=== PATIENT | male | born 1955 | race Caucasian/White ===

== ENCOUNTER 2017-09-01 10:57 | Emergency (ER) | payer OTHER ==
[~2017-09-01] VITALS: Ht 182.9 cm; Wt 149.7 kg
[~2017-09-01 10:57] MED LIST: ALBU90OI; ALBU90OI61 INH; AMOX500 PO; ATOR80 PO; Adult Low Dose81 MG PO; BECL80OI INH; CEPH500 PO; CETI5; CHLO50; CLARITIN10 MG PO; CODGUAEL PO; DOXY100; FISH1000 PO; FLUC150A PO; FLUV80CR; GLIM4; GLIM4 PO; GLYMET5 PO; Hair, Skin & N1 EACH PO; IPRATROPIUM INH; LEVFLO500 PO; LORA10 PO; METF500 PO; METO25ER PO; METPRE4DP PO; MONT10T PO; Monodox100 MG PO; NYST100TC TOP; OSEL75CA PO; PIOG15; PIOG45 PO; PRED20 PO; QVAR7.3 G1; QVAR7.3 G1 IH; SILSUL1TC TOP; SITA100T2 PO; STEROID NASAL SPRAY; VALS80; VALS80 PO; [UNRECOGNIZED DRUG - CODE] PO
[2017-09-01] MEDS ORDERED: Monodox100 MG PO (12:36)
[2018-06-19] MEDS ORDERED: SITA100T2 PO (16:10)
[2018-06-19] MEDS ORDERED: Glucophage1000 MG PO (16:11)
[2018-06-19] MEDS ORDERED: LORATADINE10 MG PO (16:12)
[2018-06-19] MEDS ORDERED: CEPH250A PO (16:12)
[2018-06-22] MEDS ORDERED: CEPH500 PO (16:36)
== END 2017-09-01 12:47 | disposition home or self-care (01) ==
LOC: ER 10:57
DX: E11.621 Type 2 diabetes mellitus with foot ulcer (principal); L97.529 Non-pressure chronic ulcer of other part of left foot with unspecified severity; I10 Essential (primary) hypertension; J45.909 Unspecified asthma, uncomplicated; Z60.9 Problem related to social environment, unspecified; Z88.1 Allergy status to other antibiotic agents; Z88.8 Allergy status to other drugs, medicaments and biological substances; Z79.899 Other long term (current) drug therapy; Z79.84 Long term (current) use of oral hypoglycemic drugs; Z79.82 Long term (current) use of aspirin; Z87.891 Personal history of nicotine dependence
CPT/HCPCS: 99282

== ENCOUNTER 2017-09-15 11:50 | Emergency (ER) | payer OTHER ==
[~2017-09-15] VITALS: Ht 182.9 cm; Wt 150.6 kg
[2017-09-15] MEDS ORDERED: Vibramycin100 MG PO (14:13)
[2018-06-19] MEDS ORDERED: SITA100T2 PO (16:10)
[2018-06-19] MEDS ORDERED: Glucophage1000 MG PO (16:11)
[2018-06-19] MEDS ORDERED: LORATADINE10 MG PO (16:12)
[2018-06-19] MEDS ORDERED: CEPH250A PO (16:12)
[2018-06-22] MEDS ORDERED: CEPH500 PO (16:36)
== END 2017-09-15 14:29 | disposition home or self-care (01) ==
LOC: ER 11:50
DX: Z76.0 Encounter for issue of repeat prescription (principal); E11.621 Type 2 diabetes mellitus with foot ulcer; I10 Essential (primary) hypertension; J45.909 Unspecified asthma, uncomplicated; Z88.0 Allergy status to penicillin; Z88.1 Allergy status to other antibiotic agents; Z91.048 Other nonmedicinal substance allergy status; Z79.899 Other long term (current) drug therapy; Z79.84 Long term (current) use of oral hypoglycemic drugs; Z79.82 Long term (current) use of aspirin; Z90.49 Acquired absence of other specified parts of digestive tract; Z87.891 Personal history of nicotine dependence
CPT/HCPCS: 93971; 99284

== ENCOUNTER 2017-10-31 13:35 | Inpatient (IN) | payer OTHER ==
[~2017-10-31] VITALS: Ht 185.4 cm; Wt 189.0 kg
[~2017-10-31 13:35] MED LIST changes: +Vibramycin100 MG PO
[2017-10-31 14:13] LABS: BASOPHILS ABSOLUTE AUTO 0.13 K/mm3 (0.00-0.23); BASOPHILS PERCENT AUTO 1 % (0-2); EOSINOPHILS PERCENT AUTO 1 % (0-6); Hematocrit 40.7 % (37.0-53.0); IMMATURE GRAN ABSOLUTE AUTO 0.09 K/mm3 (0.00-0.10); IMMATURE GRAN PERCENT AUTO 1 % (0-1); LYMPHOCYTES ABSOLUTE AUTO 2.71 K/mm3 (0.84-5.20); LYMPHOCYTES PERCENT AUTO 26 % (21-46); MONOCYTES ABSOLUTE AUTO 0.72 K/mm3 (0.16-1.47); MONOCYTES PERCENT AUTO 7 % (4-13); Mean Corpuscular HGB 29.3 pg (26.0-34.0); Mean Corpuscular HGB Conc 31.9 g/dL (31.5-36.5); Mean Corpuscular Volume 92 fL (80-100); Mean Platelet Volume 10.2 fL (9.1-12.4); NEUTROPHILS ABSOLUTE AUTO 6.76 K/mm3 (1.96-9.15); NEUTROPHILS PERCENT AUTO 64 % (41-73); Platelet Count 318 K/mm3 (150-400); RDW Coefficient Variation 14.7 % (11.7-14.2); RDW Standard Deviation 49.6 fL (35.1-46.3); Red Blood Cell Count 4.43 M/mm3 (4.30-5.90); White Blood Cell Count 10.51 K/mm3 (4.00-11.30)
[2017-10-31 14:20] LABS: Alanine Aminotransfer (ALT/SGP 15 U/L (12-78); Albumin, Blood 2.9 g/dL (3.4-5.0); Albumin/Globulin Ratio 0.7 (0.8-1.8); Alk Phos 95 U/L (50-136); Anion Gap 10 mmol/L (6-16); Aspartate Aminotrans (AST/SGOT 13 U/L (12-37); Bilirubin, Total 1.1 mg/dL (0.1-1.0); Blood Urea Nitrogen 16 mg/dL (8-24); Bun/Creatinine Ratio 17.4 (12.0-20.0); CO2, Blood 23 mmol/L (21-32); Calcium, Blood 8.9 mg/dL (8.5-10.1); Chloride, Blood 106 mmol/L (98-108); Creatinine, Blood 0.92 mg/dL (0.60-1.20); Globulin, Blood 4.2 g/dL (2.2-4.0); Glomerular Filtration Rate >60 (60-); Glucose, Blood 209 mg/dL (70-99); Potassium, Blood 4.1 mmol/L (3.5-5.5); Sodium, Blood 139 mmol/L (136-145); Total Protein, Blood 7.1 g/dL (6.4-8.2); Troponin I 0.044 ng/mL (0.000-0.040)
[2017-11-01 03:45] LABS: BASOPHILS ABSOLUTE AUTO 0.17 K/mm3 (0.00-0.23); BASOPHILS PERCENT AUTO 2 % (0-2); EOSINOPHILS ABSOLUTE AUTO 0.15 K/mm3 (0.00-0.68); EOSINOPHILS PERCENT AUTO 2 % (0-6); Hematocrit 38.9 % (37.0-53.0); Hemoglobin 12.3 g/dL (13.5-17.5); IMMATURE GRAN ABSOLUTE AUTO 0.09 K/mm3 (0.00-0.10); IMMATURE GRAN PERCENT AUTO 1 % (0-1); LYMPHOCYTES ABSOLUTE AUTO 2.47 K/mm3 (0.84-5.20); LYMPHOCYTES PERCENT AUTO 24 % (21-46); MONOCYTES ABSOLUTE AUTO 0.81 K/mm3 (0.16-1.47); MONOCYTES PERCENT AUTO 8 % (4-13); Mean Corpuscular HGB 29.4 pg (26.0-34.0); Mean Corpuscular HGB Conc 31.6 g/dL (31.5-36.5); Mean Corpuscular Volume 93 fL (80-100); NEUTROPHILS ABSOLUTE AUTO 6.63 K/mm3 (1.96-9.15); NEUTROPHILS PERCENT AUTO 64 % (41-73); Platelet Count 312 K/mm3 (150-400); RDW Coefficient Variation 14.8 % (11.7-14.2); RDW Standard Deviation 50.2 fL (35.1-46.3); Red Blood Cell Count 4.19 M/mm3 (4.30-5.90); White Blood Cell Count 10.32 K/mm3 (4.00-11.30)
[2017-11-01 04:06] LABS: Alanine Aminotransfer (ALT/SGP 15 U/L (12-78); Albumin, Blood 2.9 g/dL (3.4-5.0); Albumin/Globulin Ratio 0.7 (0.8-1.8); Alk Phos 89 U/L (50-136); Anion Gap 8 mmol/L (6-16); Aspartate Aminotrans (AST/SGOT 17 U/L (12-37); Bilirubin, Total 1.1 mg/dL (0.1-1.0); Blood Urea Nitrogen 16 mg/dL (8-24); Bun/Creatinine Ratio 16.4 (12.0-20.0); CO2, Blood 25 mmol/L (21-32); Calcium, Blood 8.6 mg/dL (8.5-10.1); Chloride, Blood 105 mmol/L (98-108); Creatinine, Blood 0.98 mg/dL (0.60-1.20); Globulin, Blood 4.1 g/dL (2.2-4.0); Glomerular Filtration Rate >60 (60-); Glucose, Blood 200 mg/dL (70-99); Magnesium, Blood 1.6 mg/dL (1.6-2.4); Sodium, Blood 138 mmol/L (136-145); Troponin I 0.038 ng/mL (0.000-0.040)
[2017-11-02 04:35] LABS: BASOPHILS ABSOLUTE AUTO 0.15 K/mm3 (0.00-0.23); BASOPHILS PERCENT AUTO 1 % (0-2); EOSINOPHILS ABSOLUTE AUTO 0.03 K/mm3 (0.00-0.68); EOSINOPHILS PERCENT AUTO 0 % (0-6); Hematocrit 40.8 % (37.0-53.0); IMMATURE GRAN ABSOLUTE AUTO 0.16 K/mm3 (0.00-0.10); IMMATURE GRAN PERCENT AUTO 1 % (0-1); LYMPHOCYTES ABSOLUTE AUTO 2.03 K/mm3 (0.84-5.20); LYMPHOCYTES PERCENT AUTO 17 % (21-46); MONOCYTES ABSOLUTE AUTO 1.02 K/mm3 (0.16-1.47); MONOCYTES PERCENT AUTO 8 % (4-13); Mean Corpuscular HGB 29.1 pg (26.0-34.0); Mean Corpuscular HGB Conc 31.9 g/dL (31.5-36.5); Mean Corpuscular Volume 91 fL (80-100); Mean Platelet Volume 10.6 fL (9.1-12.4); NEUTROPHILS ABSOLUTE AUTO 8.84 K/mm3 (1.96-9.15); NEUTROPHILS PERCENT AUTO 72 % (41-73); Platelet Count 329 K/mm3 (150-400); RDW Standard Deviation 49.9 fL (35.1-46.3); Red Blood Cell Count 4.47 M/mm3 (4.30-5.90); White Blood Cell Count 12.23 K/mm3 (4.00-11.30)
[2017-11-02 04:54] LABS: Anion Gap 10 mmol/L (6-16); Blood Urea Nitrogen 21 mg/dL (8-24); Bun/Creatinine Ratio 16.5 (12.0-20.0); CO2, Blood 21 mmol/L (21-32); Calcium, Blood 8.7 mg/dL (8.5-10.1); Chloride, Blood 103 mmol/L (98-108); Creatinine, Blood 1.27 mg/dL (0.60-1.20); Glomerular Filtration Rate >60 (60-); Glucose, Blood 231 mg/dL (70-99); Magnesium, Blood 1.7 mg/dL (1.6-2.4); Potassium, Blood 4.4 mmol/L (3.5-5.5); Sodium, Blood 134 mmol/L (136-145)
[2017-11-02] MEDS ORDERED: FURO40 PO (09:59)
[2017-11-02] MEDS ORDERED: METO50ER PO (10:00)
[2017-11-02] MEDS ORDERED: POTCHL20ER PO (10:01)
[2017-11-02] MEDS ORDERED: Prinivil10 MG PO (10:05)
[2018-06-19] MEDS ORDERED: SITA100T2 PO (16:10)
[2018-06-19] MEDS ORDERED: Glucophage1000 MG PO (16:11)
[2018-06-19] MEDS ORDERED: LORATADINE10 MG PO (16:12)
[2018-06-19] MEDS ORDERED: CEPH250A PO (16:12)
[2018-06-22] MEDS ORDERED: CEPH500 PO (16:36)
== END 2017-11-02 10:59 | disposition home or self-care (01) | DRG 292 ==
LOC: ER 13:35 → PCU 16:49
PROVIDERS: Internal Medicine; Physician Assistant
DX: I11.0 Hypertensive heart disease with heart failure (principal); Z68.43 Body mass index [BMI] 50.0-59.9, adult; E11.65 Type 2 diabetes mellitus with hyperglycemia; E66.01 Morbid (severe) obesity due to excess calories; I48.91 Unspecified atrial fibrillation; I50.21 Acute systolic (congestive) heart failure; E78.5 Hyperlipidemia, unspecified; K21.9 Gastro-esophageal reflux disease without esophagitis; J45.909 Unspecified asthma, uncomplicated; Z87.891 Personal history of nicotine dependence; Z88.0 Allergy status to penicillin; Z88.8 Allergy status to other drugs, medicaments and biological substances; Z79.84 Long term (current) use of oral hypoglycemic drugs; Z79.82 Long term (current) use of aspirin; Z79.899 Other long term (current) drug therapy
CPT/HCPCS: 36415; 71045; 80048; 80053; 82947; 83036; 83735; 83880; 84484; 85025; 93005; 93010; 94640; 94760; 96365; 96376; 99285; C8929; J1940; Q9957

== ENCOUNTER 2017-12-09 10:55 | Inpatient (IN) | payer OTHER ==
[~2017-12-09] VITALS: Ht 188 cm; Wt 172.4 kg
[~2017-12-09 10:55] MED LIST changes: +FURO40 PO; +IPRAOI INH; -IPRATROPIUM INH; +POTCHL20ER PO; +Prinivil10 MG PO
[2017-12-09] MEDS ORDERED: PIOG45 PO (12:02)
[2017-12-09 14:27] LABS: BASOPHILS PERCENT AUTO 1 % (0-2); EOSINOPHILS ABSOLUTE AUTO 0.14 K/mm3 (0.00-0.68); EOSINOPHILS PERCENT AUTO 2 % (0-6); Hematocrit 45.4 % (37.0-53.0); Hemoglobin 14.1 g/dL (13.5-17.5); IMMATURE GRAN ABSOLUTE AUTO 0.11 K/mm3 (0.00-0.10); IMMATURE GRAN PERCENT AUTO 1 % (0-1); LYMPHOCYTES ABSOLUTE AUTO 1.68 K/mm3 (0.84-5.20); LYMPHOCYTES PERCENT AUTO 19 % (21-46); MONOCYTES ABSOLUTE AUTO 0.69 K/mm3 (0.16-1.47); MONOCYTES PERCENT AUTO 8 % (4-13); Mean Corpuscular HGB 28.7 pg (26.0-34.0); Mean Corpuscular HGB Conc 31.1 g/dL (31.5-36.5); Mean Corpuscular Volume 93 fL (80-100); Mean Platelet Volume 9.6 fL (9.1-12.4); NEUTROPHILS ABSOLUTE AUTO 6.03 K/mm3 (1.96-9.15); NEUTROPHILS PERCENT AUTO 69 % (41-73); Platelet Count 329 K/mm3 (150-400); RDW Coefficient Variation 14.6 % (11.7-14.2); RDW Standard Deviation 49.2 fL (35.1-46.3); Red Blood Cell Count 4.91 M/mm3 (4.30-5.90); White Blood Cell Count 8.75 K/mm3 (4.00-11.30)
[2017-12-09 14:49] LABS: Alanine Aminotransfer (ALT/SGP 14 U/L (12-78); Albumin, Blood 3.1 g/dL (3.4-5.0); Albumin/Globulin Ratio 0.6 (0.8-1.8); Alk Phos 135 U/L (50-136); Anion Gap 8 mmol/L (6-16); Aspartate Aminotrans (AST/SGOT 11 U/L (12-37); Blood Urea Nitrogen 20 mg/dL (8-24); Bun/Creatinine Ratio 21.6 (12.0-20.0); CO2, Blood 27 mmol/L (21-32); Calcium, Blood 9.3 mg/dL (8.5-10.1); Chloride, Blood 105 mmol/L (98-108); Creatinine, Blood 0.93 mg/dL (0.60-1.20); Globulin, Blood 4.8 g/dL (2.2-4.0); Glomerular Filtration Rate >60 (60-); Glucose, Blood 158 mg/dL (70-99); Potassium, Blood 3.8 mmol/L (3.5-5.5); Sodium, Blood 140 mmol/L (136-145); Total Protein, Blood 7.9 g/dL (6.4-8.2); Troponin I <0.015 ng/mL (0.000-0.040)
[2017-12-10 08:00] LABS: BASOPHILS ABSOLUTE AUTO 0.13 K/mm3 (0.00-0.23); BASOPHILS PERCENT AUTO 2 % (0-2); EOSINOPHILS ABSOLUTE AUTO 0.18 K/mm3 (0.00-0.68); EOSINOPHILS PERCENT AUTO 2 % (0-6); Hematocrit 43.4 % (37.0-53.0); Hemoglobin 13.5 g/dL (13.5-17.5); IMMATURE GRAN ABSOLUTE AUTO 0.14 K/mm3 (0.00-0.10); IMMATURE GRAN PERCENT AUTO 2 % (0-1); LYMPHOCYTES ABSOLUTE AUTO 2.09 K/mm3 (0.84-5.20); LYMPHOCYTES PERCENT AUTO 24 % (21-46); MONOCYTES ABSOLUTE AUTO 0.74 K/mm3 (0.16-1.47); MONOCYTES PERCENT AUTO 8 % (4-13); Mean Corpuscular HGB 28.8 pg (26.0-34.0); Mean Corpuscular HGB Conc 31.1 g/dL (31.5-36.5); Mean Corpuscular Volume 93 fL (80-100); Mean Platelet Volume 9.5 fL (9.1-12.4); NEUTROPHILS ABSOLUTE AUTO 5.54 K/mm3 (1.96-9.15); NEUTROPHILS PERCENT AUTO 63 % (41-73); Platelet Count 345 K/mm3 (150-400); RDW Coefficient Variation 14.6 % (11.7-14.2); RDW Standard Deviation 49.7 fL (35.1-46.3); Red Blood Cell Count 4.68 M/mm3 (4.30-5.90); White Blood Cell Count 8.82 K/mm3 (4.00-11.30)
[2017-12-10 08:23] LABS: Alanine Aminotransfer (ALT/SGP 12 U/L (12-78); Albumin/Globulin Ratio 0.7 (0.8-1.8); Alk Phos 112 U/L (50-136); Anion Gap 9 mmol/L (6-16); Aspartate Aminotrans (AST/SGOT 9 U/L (12-37); Blood Urea Nitrogen 18 mg/dL (8-24); Bun/Creatinine Ratio 20.3 (12.0-20.0); CO2, Blood 26 mmol/L (21-32); Chloride, Blood 106 mmol/L (98-108); Creatinine, Blood 0.89 mg/dL (0.60-1.20); Globulin, Blood 4.6 g/dL (2.2-4.0); Glomerular Filtration Rate >60 (60-); Glucose, Blood 175 mg/dL (70-99); Potassium, Blood 4.1 mmol/L (3.5-5.5); Sodium, Blood 141 mmol/L (136-145); Total Protein, Blood 7.6 g/dL (6.4-8.2)
[2017-12-11 06:08] LABS: BASOPHILS ABSOLUTE AUTO 0.13 K/mm3 (0.00-0.23); BASOPHILS PERCENT AUTO 2 % (0-2); EOSINOPHILS ABSOLUTE AUTO 0.23 K/mm3 (0.00-0.68); EOSINOPHILS PERCENT AUTO 3 % (0-6); Hematocrit 43.9 % (37.0-53.0); Hemoglobin 13.9 g/dL (13.5-17.5); IMMATURE GRAN ABSOLUTE AUTO 0.09 K/mm3 (0.00-0.10); IMMATURE GRAN PERCENT AUTO 1 % (0-1); LYMPHOCYTES ABSOLUTE AUTO 1.99 K/mm3 (0.84-5.20); LYMPHOCYTES PERCENT AUTO 23 % (21-46); MONOCYTES ABSOLUTE AUTO 0.74 K/mm3 (0.16-1.47); MONOCYTES PERCENT AUTO 9 % (4-13); Mean Corpuscular HGB 28.9 pg (26.0-34.0); Mean Corpuscular HGB Conc 31.7 g/dL (31.5-36.5); Mean Corpuscular Volume 91 fL (80-100); NEUTROPHILS ABSOLUTE AUTO 5.54 K/mm3 (1.96-9.15); NEUTROPHILS PERCENT AUTO 64 % (41-73); Platelet Count 350 K/mm3 (150-400); RDW Coefficient Variation 14.6 % (11.7-14.2); RDW Standard Deviation 49.1 fL (35.1-46.3); Red Blood Cell Count 4.81 M/mm3 (4.30-5.90); White Blood Cell Count 8.72 K/mm3 (4.00-11.30)
[2017-12-11 06:41] LABS: Anion Gap 9 mmol/L (6-16); Blood Urea Nitrogen 17 mg/dL (8-24); Bun/Creatinine Ratio 17.3 (12.0-20.0); CO2, Blood 25 mmol/L (21-32); Chloride, Blood 105 mmol/L (98-108); Creatinine, Blood 0.98 mg/dL (0.60-1.20); Glomerular Filtration Rate >60 (60-); Glucose, Blood 151 mg/dL (70-99); Potassium, Blood 4.2 mmol/L (3.5-5.5); Sodium, Blood 139 mmol/L (136-145)
[2017-12-12 05:22] LABS: BASOPHILS ABSOLUTE AUTO 0.12 K/mm3 (0.00-0.23); BASOPHILS PERCENT AUTO 2 % (0-2); EOSINOPHILS ABSOLUTE AUTO 0.18 K/mm3 (0.00-0.68); EOSINOPHILS PERCENT AUTO 2 % (0-6); Hematocrit 43.4 % (37.0-53.0); Hemoglobin 14.1 g/dL (13.5-17.5); IMMATURE GRAN ABSOLUTE AUTO 0.09 K/mm3 (0.00-0.10); IMMATURE GRAN PERCENT AUTO 1 % (0-1); LYMPHOCYTES ABSOLUTE AUTO 1.89 K/mm3 (0.84-5.20); LYMPHOCYTES PERCENT AUTO 24 % (21-46); MONOCYTES ABSOLUTE AUTO 0.73 K/mm3 (0.16-1.47); MONOCYTES PERCENT AUTO 9 % (4-13); Mean Corpuscular HGB 29.5 pg (26.0-34.0); Mean Corpuscular HGB Conc 32.5 g/dL (31.5-36.5); Mean Corpuscular Volume 91 fL (80-100); Mean Platelet Volume 9.4 fL (9.1-12.4); NEUTROPHILS ABSOLUTE AUTO 4.92 K/mm3 (1.96-9.15); NEUTROPHILS PERCENT AUTO 62 % (41-73); Platelet Count 333 K/mm3 (150-400); RDW Coefficient Variation 14.4 % (11.7-14.2); RDW Standard Deviation 48.2 fL (35.1-46.3); Red Blood Cell Count 4.78 M/mm3 (4.30-5.90); White Blood Cell Count 7.93 K/mm3 (4.00-11.30)
[2017-12-12 05:57] LABS: Anion Gap 10 mmol/L (6-16); Blood Urea Nitrogen 21 mg/dL (8-24); Bun/Creatinine Ratio 21.5 (12.0-20.0); CO2, Blood 24 mmol/L (21-32); Calcium, Blood 9.3 mg/dL (8.5-10.1); Chloride, Blood 104 mmol/L (98-108); Creatinine, Blood 0.98 mg/dL (0.60-1.20); Glomerular Filtration Rate >60 (60-); Glucose, Blood 168 mg/dL (70-99); Potassium, Blood 4.4 mmol/L (3.5-5.5); Sodium, Blood 138 mmol/L (136-145)
== END 2017-12-14 07:56 | disposition home or self-care (01) | DRG 292 ==
LOC: ER 10:55 → MEDS 15:43
PROVIDERS: Internal Medicine; Physician Assistant Medical
DX: I11.0 Hypertensive heart disease with heart failure (principal); L03.116 Cellulitis of left lower limb; L97.929 Non-pressure chronic ulcer of unspecified part of left lower leg with unspecified severity; I50.22 Chronic systolic (congestive) heart failure; R60.9 Edema, unspecified; I87.8 Other specified disorders of veins; E11.9 Type 2 diabetes mellitus without complications; I48.91 Unspecified atrial fibrillation; F22 Delusional disorders; F20.9 Schizophrenia, unspecified; E66.01 Morbid (severe) obesity due to excess calories
CPT/HCPCS: 36415; 71046; 80048; 80053; 82947; 83880; 84484; 85025; 93005; 93010; 93970; 94640; 94760; 99285; A9270; J1940

== ENCOUNTER 2018-05-08 10:45 | Inpatient (IN) | payer OTHER ==
[~2018-05-08] VITALS: Ht 182.9 cm; Wt 155.8 kg
[~2018-05-08 10:45] MED LIST changes: -IPRAOI INH; +IPRATROPIUM INH; +METO50ER PO
[2018-05-08 12:25] LABS: BASOPHILS ABSOLUTE AUTO 0.17 K/mm3 (0.00-0.23); BASOPHILS PERCENT AUTO 1 % (0-2); EOSINOPHILS ABSOLUTE AUTO 0.15 K/mm3 (0.00-0.68); EOSINOPHILS PERCENT AUTO 1 % (0-6); Hematocrit 39.8 % (37.0-53.0); Hemoglobin 13.1 g/dL (13.5-17.5); IMMATURE GRAN ABSOLUTE AUTO 0.95 K/mm3 (0.00-0.10); IMMATURE GRAN PERCENT AUTO 3 % (0-1); LYMPHOCYTES ABSOLUTE AUTO 1.95 K/mm3 (0.84-5.20); LYMPHOCYTES PERCENT AUTO 6 % (21-46); MONOCYTES ABSOLUTE AUTO 1.35 K/mm3 (0.16-1.47); MONOCYTES PERCENT AUTO 4 % (4-13); Mean Corpuscular HGB Conc 32.9 g/dL (31.5-36.5); Mean Corpuscular Volume 88 fL (80-100); Mean Platelet Volume 9.1 fL (9.1-12.4); NEUTROPHILS ABSOLUTE AUTO 28.69 K/mm3 (1.96-9.15); NEUTROPHILS PERCENT AUTO 86 % (41-73); Platelet Count 447 K/mm3 (150-400); RDW Coefficient Variation 13.3 % (11.7-14.2); Red Blood Cell Count 4.52 M/mm3 (4.30-5.90); White Blood Cell Count 33.26 K/mm3 (4.00-11.30)
[2018-05-08 12:50] LABS: Alanine Aminotransfer (ALT/SGP 17 U/L (12-78); Albumin, Blood 2.4 g/dL (3.4-5.0); Albumin/Globulin Ratio 0.4 (0.8-1.8); Alk Phos 181 U/L (50-136); Anion Gap 13 mmol/L (6-16); Aspartate Aminotrans (AST/SGOT 20 U/L (12-37); Bilirubin, Total 1.2 mg/dL (0.1-1.0); Blood Urea Nitrogen 12 mg/dL (8-24); Bun/Creatinine Ratio 16.2 (12.0-20.0); CO2, Blood 24 mmol/L (21-32); Calcium, Blood 8.8 mg/dL (8.5-10.1); Chloride, Blood 95 mmol/L (98-108); Creatinine, Blood 0.74 mg/dL (0.60-1.20); Globulin, Blood 6.4 g/dL (2.2-4.0); Glomerular Filtration Rate >60 (60-); Glucose, Blood 120 mg/dL (70-99); Potassium, Blood 3.8 mmol/L (3.5-5.5); Sodium, Blood 132 mmol/L (136-145); Total Protein, Blood 8.8 g/dL (6.4-8.2); Troponin I <0.015 ng/mL (0.000-0.040)
[2018-05-08 13:15] LABS: Beta-hydroxybutyrate 7.1 mg/dL (0.2-2.8)
[2018-05-09 05:14] LABS: Hematocrit 30.4 % (37.0-53.0); Hemoglobin 10.1 g/dL (13.5-17.5); Mean Corpuscular HGB 29.1 pg (26.0-34.0); Mean Corpuscular HGB Conc 33.2 g/dL (31.5-36.5); Mean Corpuscular Volume 88 fL (80-100); Mean Platelet Volume 9.5 fL (9.1-12.4); NRBC ABSOLUTE 0.03 K/mm3 (0.00-0.02); NRBC Auto 0.1 /100 WBC (0.0-0.2); Platelet Count 372 K/mm3 (150-400); RDW Coefficient Variation 13.7 % (11.7-14.2); RDW Standard Deviation 43.7 fL (35.1-46.3); Red Blood Cell Count 3.47 M/mm3 (4.30-5.90); White Blood Cell Count 27.26 K/mm3 (4.00-11.30)
[2018-05-09 05:25] LABS: Anion Gap 14 mmol/L (6-16); Blood Urea Nitrogen 16 mg/dL (8-24); Bun/Creatinine Ratio 19.1 (12.0-20.0); CO2, Blood 22 mmol/L (21-32); Calcium, Blood 8.2 mg/dL (8.5-10.1); Chloride, Blood 97 mmol/L (98-108); Creatinine, Blood 0.84 mg/dL (0.60-1.20); Glomerular Filtration Rate >60 (60-); Glucose, Blood 160 mg/dL (70-99); Magnesium, Blood 1.7 mg/dL (1.6-2.4); Potassium, Blood 3.6 mmol/L (3.5-5.5); Sodium, Blood 133 mmol/L (136-145)
[2018-05-09 05:38] LABS: BAND PERCENT MAN 9 % (0-8); BASOPHILS ABSOLUTE MAN 0.27 K/mm3 (0.00-0.23); BASOPHILS PERCENT MAN 1 % (0-2); EOSINOPHILS PERCENT MAN 0 % (0-6); LYMPHOCYTES ABSOLUTE MAN 1.36 K/mm3 (0.84-5.20); LYMPHOCYTES PERCENT MAN 5 % (21-46); MONOCYTES ABSOLUTE MAN 0.81 K/mm3 (0.16-1.47); MONOCYTES PERCENT MAN 3 % (4-13); MYELOCYTE ABSOLUTE MAN 0.27 K/mm3 (0.00-0.00); MYELOCYTE PERCENT MAN 1 % (0-0); NEUTROPHILS ABSOLUTE MAN 24.53 K/mm3 (1.96-9.15); SEG NEUTROPHILS PERCENT MAN 81 % (41-73); TOTAL CELLS COUNTED 100
[2018-05-10 04:29] LABS: Hematocrit 28.7 % (37.0-53.0); Hemoglobin 9.4 g/dL (13.5-17.5); Mean Corpuscular HGB 30.1 pg (26.0-34.0); Mean Corpuscular HGB Conc 32.8 g/dL (31.5-36.5); Mean Platelet Volume 9.5 fL (9.1-12.4); NRBC ABSOLUTE 0.02 K/mm3 (0.00-0.02); NRBC Auto 0.1 /100 WBC (0.0-0.2); Platelet Count 343 K/mm3 (150-400); RDW Coefficient Variation 13.9 % (11.7-14.2); RDW Standard Deviation 46.8 fL (35.1-46.3); Red Blood Cell Count 3.12 M/mm3 (4.30-5.90); White Blood Cell Count 25.53 K/mm3 (4.00-11.30)
[2018-05-10 04:33] LABS: Mean Corpuscular Volume 92 fL (80-100)
[2018-05-10 04:49] LABS: Anion Gap 10 mmol/L (6-16); Blood Urea Nitrogen 13 mg/dL (8-24); Bun/Creatinine Ratio 17.1 (12.0-20.0); CO2, Blood 25 mmol/L (21-32); Calcium, Blood 8.1 mg/dL (8.5-10.1); Chloride, Blood 99 mmol/L (98-108); Creatinine, Blood 0.76 mg/dL (0.60-1.20); Glomerular Filtration Rate >60 (60-); Glucose, Blood 182 mg/dL (70-99); Potassium, Blood 3.6 mmol/L (3.5-5.5); Sodium, Blood 134 mmol/L (136-145); Vancomycin, Trough 13.3 ug/mL (5.0-10.0)
[2018-05-10 05:24] LABS: BAND PERCENT MAN 3 % (0-8); BASOPHILS PERCENT MAN 0 % (0-2); EOSINOPHILS PERCENT MAN 0 % (0-6); LYMPHOCYTES ABSOLUTE MAN 1.53 K/mm3 (0.84-5.20); LYMPHOCYTES PERCENT MAN 6 % (21-46); METAMYELOCYTE ABSOLUTE MAN 0.25 K/mm3 (0.00-0.00); METAMYELOCYTE PERCENT MAN 1 % (0-0); MONOCYTES ABSOLUTE MAN 1.78 K/mm3 (0.16-1.47); MONOCYTES PERCENT MAN 7 % (4-13); NEUTROPHILS ABSOLUTE MAN 21.95 K/mm3 (1.96-9.15); SEG NEUTROPHILS PERCENT MAN 83 % (41-73); TOTAL CELLS COUNTED 100
[2018-05-11 05:43] LABS: Hematocrit 27.2 % (37.0-53.0); Hemoglobin 8.9 g/dL (13.5-17.5); Mean Corpuscular HGB 29.9 pg (26.0-34.0); Mean Corpuscular HGB Conc 32.7 g/dL (31.5-36.5); Mean Corpuscular Volume 91 fL (80-100); Mean Platelet Volume 9.3 fL (9.1-12.4); NRBC ABSOLUTE 0.04 K/mm3 (0.00-0.02); NRBC Auto 0.2 /100 WBC (0.0-0.2); Platelet Count 344 K/mm3 (150-400); Red Blood Cell Count 2.98 M/mm3 (4.30-5.90); White Blood Cell Count 19.19 K/mm3 (4.00-11.30)
[2018-05-11 06:02] LABS: BAND PERCENT MAN 6 % (0-8); BASOPHILS PERCENT MAN 0 % (0-2); EOSINOPHILS ABSOLUTE MAN 1.15 K/mm3 (0.00-0.68); EOSINOPHILS PERCENT MAN 6 % (0-6); LYMPHOCYTES ABSOLUTE MAN 1.91 K/mm3 (0.84-5.20); LYMPHOCYTES PERCENT MAN 10 % (21-46); METAMYELOCYTE ABSOLUTE MAN 0.19 K/mm3 (0.00-0.00); METAMYELOCYTE PERCENT MAN 1 % (0-0); MONOCYTES ABSOLUTE MAN 1.34 K/mm3 (0.16-1.47); MONOCYTES PERCENT MAN 7 % (4-13); MYELOCYTE ABSOLUTE MAN 0.57 K/mm3 (0.00-0.00); MYELOCYTE PERCENT MAN 3 % (0-0); SEG NEUTROPHILS PERCENT MAN 67 % (41-73); TOTAL CELLS COUNTED 100
[2018-05-11 06:03] LABS: Anion Gap 8 mmol/L (6-16); Blood Urea Nitrogen 11 mg/dL (8-24); Bun/Creatinine Ratio 14.2 (12.0-20.0); CO2, Blood 27 mmol/L (21-32); Calcium, Blood 8.1 mg/dL (8.5-10.1); Chloride, Blood 102 mmol/L (98-108); Creatinine, Blood 0.77 mg/dL (0.60-1.20); Glomerular Filtration Rate >60 (60-); Glucose, Blood 172 mg/dL (70-99); Potassium, Blood 3.5 mmol/L (3.5-5.5); Sodium, Blood 137 mmol/L (136-145)
[2018-05-12 05:09] LABS: Hematocrit 28.9 % (37.0-53.0); Hemoglobin 9.3 g/dL (13.5-17.5); Mean Corpuscular HGB 29.8 pg (26.0-34.0); Mean Corpuscular HGB Conc 32.2 g/dL (31.5-36.5); Mean Corpuscular Volume 93 fL (80-100); Mean Platelet Volume 9.3 fL (9.1-12.4); NRBC ABSOLUTE 0.04 K/mm3 (0.00-0.02); NRBC Auto 0.2 /100 WBC (0.0-0.2); Platelet Count 399 K/mm3 (150-400); RDW Standard Deviation 47.4 fL (35.1-46.3); Red Blood Cell Count 3.12 M/mm3 (4.30-5.90); White Blood Cell Count 18.91 K/mm3 (4.00-11.30)
[2018-05-12 05:29] LABS: BAND PERCENT MAN 1 % (0-8); BASOPHILS ABSOLUTE MAN 0.18 K/mm3 (0.00-0.23); BASOPHILS PERCENT MAN 1 % (0-2); EOSINOPHILS ABSOLUTE MAN 1.13 K/mm3 (0.00-0.68); EOSINOPHILS PERCENT MAN 6 % (0-6); LYMPHOCYTES ABSOLUTE MAN 2.08 K/mm3 (0.84-5.20); LYMPHOCYTES PERCENT MAN 11 % (21-46); METAMYELOCYTE ABSOLUTE MAN 0.75 K/mm3 (0.00-0.00); METAMYELOCYTE PERCENT MAN 4 % (0-0); MONOCYTES ABSOLUTE MAN 1.51 K/mm3 (0.16-1.47); MONOCYTES PERCENT MAN 8 % (4-13); MYELOCYTE ABSOLUTE MAN 0.56 K/mm3 (0.00-0.00); MYELOCYTE PERCENT MAN 3 % (0-0); NEUTROPHILS ABSOLUTE MAN 12.66 K/mm3 (1.96-9.15); SEG NEUTROPHILS PERCENT MAN 66 % (41-73); TOTAL CELLS COUNTED 100
[2018-05-12 05:39] LABS: Anion Gap 9 mmol/L (6-16); Blood Urea Nitrogen 10 mg/dL (8-24); CO2, Blood 28 mmol/L (21-32); Calcium, Blood 8.2 mg/dL (8.5-10.1); Chloride, Blood 103 mmol/L (98-108); Creatinine, Blood 0.77 mg/dL (0.60-1.20); Glomerular Filtration Rate >60 (60-); Glucose, Blood 182 mg/dL (70-99); Potassium, Blood 3.5 mmol/L (3.5-5.5); Sodium, Blood 140 mmol/L (136-145)
[2018-05-13 05:11] LABS: Hematocrit 30.9 % (37.0-53.0); Mean Corpuscular HGB 29.9 pg (26.0-34.0); Mean Corpuscular HGB Conc 32.4 g/dL (31.5-36.5); Mean Corpuscular Volume 92 fL (80-100); NRBC ABSOLUTE 0.07 K/mm3 (0.00-0.02); NRBC Auto 0.3 /100 WBC (0.0-0.2); Platelet Count 460 K/mm3 (150-400); RDW Coefficient Variation 14.1 % (11.7-14.2); Red Blood Cell Count 3.35 M/mm3 (4.30-5.90); White Blood Cell Count 21.85 K/mm3 (4.00-11.30)
[2018-05-13 05:53] LABS: BAND PERCENT MAN 1 % (0-8); BASOPHILS PERCENT MAN 0 % (0-2); EOSINOPHILS ABSOLUTE MAN 0.43 K/mm3 (0.00-0.68); EOSINOPHILS PERCENT MAN 2 % (0-6); LYMPHOCYTES ABSOLUTE MAN 3.27 K/mm3 (0.84-5.20); LYMPHOCYTES PERCENT MAN 15 % (21-46); METAMYELOCYTE ABSOLUTE MAN 1.31 K/mm3 (0.00-0.00); METAMYELOCYTE PERCENT MAN 6 % (0-0); MONOCYTES ABSOLUTE MAN 0.87 K/mm3 (0.16-1.47); MONOCYTES PERCENT MAN 4 % (4-13); MYELOCYTE ABSOLUTE MAN 0.21 K/mm3 (0.00-0.00); MYELOCYTE PERCENT MAN 1 % (0-0); NEUTROPHILS ABSOLUTE MAN 15.73 K/mm3 (1.96-9.15); SEG NEUTROPHILS PERCENT MAN 71 % (41-73); TOTAL CELLS COUNTED 100
[2018-05-14 05:35] LABS: Hematocrit 31.2 % (37.0-53.0); Hemoglobin 10.1 g/dL (13.5-17.5); Mean Corpuscular HGB 29.9 pg (26.0-34.0); Mean Corpuscular HGB Conc 32.4 g/dL (31.5-36.5); Mean Corpuscular Volume 92 fL (80-100); Mean Platelet Volume 9.3 fL (9.1-12.4); NRBC ABSOLUTE 0.04 K/mm3 (0.00-0.02); NRBC Auto 0.2 /100 WBC (0.0-0.2); Platelet Count 481 K/mm3 (150-400); RDW Coefficient Variation 14.3 % (11.7-14.2); RDW Standard Deviation 47.8 fL (35.1-46.3); Red Blood Cell Count 3.38 M/mm3 (4.30-5.90); White Blood Cell Count 19.48 K/mm3 (4.00-11.30)
[2018-05-14 05:46] LABS: Anion Gap 8 mmol/L (6-16); Blood Urea Nitrogen 11 mg/dL (8-24); Bun/Creatinine Ratio 13.8 (12.0-20.0); CO2, Blood 28 mmol/L (21-32); Calcium, Blood 8.4 mg/dL (8.5-10.1); Chloride, Blood 104 mmol/L (98-108); Glomerular Filtration Rate >60 (60-); Glucose, Blood 186 mg/dL (70-99); Potassium, Blood 3.7 mmol/L (3.5-5.5); Sodium, Blood 140 mmol/L (136-145)
[2018-05-14 05:59] LABS: BAND PERCENT MAN 2 % (0-8); BASOPHILS PERCENT MAN 0 % (0-2); EOSINOPHILS ABSOLUTE MAN 0.19 K/mm3 (0.00-0.68); EOSINOPHILS PERCENT MAN 1 % (0-6); LYMPHOCYTES ABSOLUTE MAN 3.11 K/mm3 (0.84-5.20); LYMPHOCYTES PERCENT MAN 16 % (21-46); METAMYELOCYTE ABSOLUTE MAN 0.19 K/mm3 (0.00-0.00); METAMYELOCYTE PERCENT MAN 1 % (0-0); MONOCYTES ABSOLUTE MAN 0.58 K/mm3 (0.16-1.47); MONOCYTES PERCENT MAN 3 % (4-13); MYELOCYTE ABSOLUTE MAN 0.58 K/mm3 (0.00-0.00); MYELOCYTE PERCENT MAN 3 % (0-0); SEG NEUTROPHILS PERCENT MAN 74 % (41-73); TOTAL CELLS COUNTED 100
[2018-05-15 06:04] LABS: Hematocrit 33.7 % (37.0-53.0); Hemoglobin 10.6 g/dL (13.5-17.5); Mean Corpuscular HGB 29.4 pg (26.0-34.0); Mean Corpuscular HGB Conc 31.5 g/dL (31.5-36.5); Mean Corpuscular Volume 93 fL (80-100); Mean Platelet Volume 9.2 fL (9.1-12.4); NRBC ABSOLUTE 0.04 K/mm3 (0.00-0.02); NRBC Auto 0.2 /100 WBC (0.0-0.2); Platelet Count 511 K/mm3 (150-400); RDW Coefficient Variation 14.6 % (11.7-14.2); RDW Standard Deviation 48.7 fL (35.1-46.3); Red Blood Cell Count 3.61 M/mm3 (4.30-5.90); White Blood Cell Count 16.72 K/mm3 (4.00-11.30)
[2018-05-15 06:20] LABS: Anion Gap 8 mmol/L (6-16); Blood Urea Nitrogen 12 mg/dL (8-24); Bun/Creatinine Ratio 13.6 (12.0-20.0); CO2, Blood 29 mmol/L (21-32); Calcium, Blood 8.6 mg/dL (8.5-10.1); Chloride, Blood 103 mmol/L (98-108); Creatinine, Blood 0.88 mg/dL (0.60-1.20); Glomerular Filtration Rate >60 (60-); Glucose, Blood 151 mg/dL (70-99); Potassium, Blood 3.7 mmol/L (3.5-5.5); Sodium, Blood 140 mmol/L (136-145)
[2018-05-15 06:23] LABS: BAND PERCENT MAN 2 % (0-8); BASOPHILS PERCENT MAN 3 % (0-2); EOSINOPHILS PERCENT MAN 3 % (0-6); LYMPHOCYTES ABSOLUTE MAN 1.83 K/mm3 (0.84-5.20); LYMPHOCYTES PERCENT MAN 11 % (21-46); METAMYELOCYTE PERCENT MAN 3 % (0-0); MONOCYTES ABSOLUTE MAN 0.33 K/mm3 (0.16-1.47); MONOCYTES PERCENT MAN 2 % (4-13); MYELOCYTE PERCENT MAN 3 % (0-0); NEUTROPHILS ABSOLUTE MAN 12.54 K/mm3 (1.96-9.15); SEG NEUTROPHILS PERCENT MAN 73 % (41-73); TOTAL CELLS COUNTED 100
[2018-05-16 05:01] LABS: Hematocrit 32.5 % (37.0-53.0); Hemoglobin 10.5 g/dL (13.5-17.5); Mean Corpuscular HGB 30.2 pg (26.0-34.0); Mean Corpuscular HGB Conc 32.3 g/dL (31.5-36.5); Mean Corpuscular Volume 93 fL (80-100); Mean Platelet Volume 8.9 fL (9.1-12.4); NRBC ABSOLUTE 0.02 K/mm3 (0.00-0.02); NRBC Auto 0.1 /100 WBC (0.0-0.2); Platelet Count 513 K/mm3 (150-400); RDW Coefficient Variation 14.6 % (11.7-14.2); RDW Standard Deviation 49.1 fL (35.1-46.3); Red Blood Cell Count 3.48 M/mm3 (4.30-5.90); White Blood Cell Count 15.14 K/mm3 (4.00-11.30)
[2018-05-16 05:26] LABS: Anion Gap 8 mmol/L (6-16); Blood Urea Nitrogen 12 mg/dL (8-24); Bun/Creatinine Ratio 12.9 (12.0-20.0); CO2, Blood 27 mmol/L (21-32); Calcium, Blood 8.5 mg/dL (8.5-10.1); Chloride, Blood 104 mmol/L (98-108); Creatinine, Blood 0.93 mg/dL (0.60-1.20); Glomerular Filtration Rate >60 (60-); Glucose, Blood 141 mg/dL (70-99); Potassium, Blood 3.7 mmol/L (3.5-5.5); Sodium, Blood 139 mmol/L (136-145)
[2018-05-17 05:31] LABS: Hematocrit 33.8 % (37.0-53.0); Hemoglobin 10.6 g/dL (13.5-17.5); Mean Corpuscular HGB 29.4 pg (26.0-34.0); Mean Corpuscular HGB Conc 31.4 g/dL (31.5-36.5); Mean Corpuscular Volume 94 fL (80-100); Mean Platelet Volume 8.9 fL (9.1-12.4); Platelet Count 519 K/mm3 (150-400); RDW Coefficient Variation 14.8 % (11.7-14.2); RDW Standard Deviation 49.2 fL (35.1-46.3); Red Blood Cell Count 3.61 M/mm3 (4.30-5.90); White Blood Cell Count 11.73 K/mm3 (4.00-11.30)
[2018-05-17 05:54] LABS: Anion Gap 7 mmol/L (6-16); Blood Urea Nitrogen 12 mg/dL (8-24); Bun/Creatinine Ratio 12.3 (12.0-20.0); CO2, Blood 28 mmol/L (21-32); Calcium, Blood 8.5 mg/dL (8.5-10.1); Chloride, Blood 105 mmol/L (98-108); Creatinine, Blood 0.97 mg/dL (0.60-1.20); Glomerular Filtration Rate >60 (60-); Glucose, Blood 141 mg/dL (70-99); Potassium, Blood 3.7 mmol/L (3.5-5.5); Sodium, Blood 140 mmol/L (136-145)
[2018-05-17 06:08] LABS: BASOPHILS ABSOLUTE MAN 0.23 K/mm3 (0.00-0.23); BASOPHILS PERCENT MAN 2 % (0-2); EOSINOPHILS ABSOLUTE MAN 0.23 K/mm3 (0.00-0.68); EOSINOPHILS PERCENT MAN 2 % (0-6); LYMPHOCYTES ABSOLUTE MAN 3.51 K/mm3 (0.84-5.20); LYMPHOCYTES PERCENT MAN 30 % (21-46); METAMYELOCYTE ABSOLUTE MAN 0.35 K/mm3 (0.00-0.00); METAMYELOCYTE PERCENT MAN 3 % (0-0); MONOCYTES ABSOLUTE MAN 0.23 K/mm3 (0.16-1.47); MONOCYTES PERCENT MAN 2 % (4-13); MYELOCYTE ABSOLUTE MAN 0.35 K/mm3 (0.00-0.00); MYELOCYTE PERCENT MAN 3 % (0-0); SEG NEUTROPHILS PERCENT MAN 58 % (41-73); TOTAL CELLS COUNTED 100
[2018-05-23 06:11] LABS: BASOPHILS ABSOLUTE AUTO 0.16 K/mm3 (0.00-0.23); BASOPHILS PERCENT AUTO 2 % (0-2); EOSINOPHILS ABSOLUTE AUTO 0.57 K/mm3 (0.00-0.68); EOSINOPHILS PERCENT AUTO 7 % (0-6); Hematocrit 33.4 % (37.0-53.0); Hemoglobin 10.4 g/dL (13.5-17.5); IMMATURE GRAN ABSOLUTE AUTO 0.05 K/mm3 (0.00-0.10); IMMATURE GRAN PERCENT AUTO 1 % (0-1); LYMPHOCYTES ABSOLUTE AUTO 1.92 K/mm3 (0.84-5.20); LYMPHOCYTES PERCENT AUTO 23 % (21-46); MONOCYTES ABSOLUTE AUTO 0.56 K/mm3 (0.16-1.47); MONOCYTES PERCENT AUTO 7 % (4-13); Mean Corpuscular HGB 30.1 pg (26.0-34.0); Mean Corpuscular HGB Conc 31.1 g/dL (31.5-36.5); Mean Platelet Volume 8.9 fL (9.1-12.4); NEUTROPHILS ABSOLUTE AUTO 5.13 K/mm3 (1.96-9.15); NEUTROPHILS PERCENT AUTO 61 % (41-73); Platelet Count 369 K/mm3 (150-400); RDW Standard Deviation 56.7 fL (35.1-46.3); Red Blood Cell Count 3.46 M/mm3 (4.30-5.90); White Blood Cell Count 8.39 K/mm3 (4.00-11.30)
[2018-05-23 06:12] LABS: Mean Corpuscular Volume 97 fL (80-100)
[2018-05-23 06:35] LABS: Anion Gap 7 mmol/L (6-16); Blood Urea Nitrogen 16 mg/dL (8-24); Bun/Creatinine Ratio 14.5 (12.0-20.0); CO2, Blood 25 mmol/L (21-32); Calcium, Blood 9.2 mg/dL (8.5-10.1); Chloride, Blood 107 mmol/L (98-108); Glomerular Filtration Rate >60 (60-); Glucose, Blood 126 mg/dL (70-99); Potassium, Blood 3.7 mmol/L (3.5-5.5); Sodium, Blood 139 mmol/L (136-145)
[2018-05-23] MEDS ORDERED: DOCU100 PO (16:17)
[2018-05-23] MEDS ORDERED: ACET325 PO (16:17)
[2018-05-23] MEDS ORDERED: ROXICODONE5 MG PO (16:18)
[2018-05-23] MEDS ORDERED: HUMALOG KW200 UNIT/1 SC (16:19)
[2018-05-23] MEDS ORDERED: LOSA50 PO (16:20)
[2018-05-23] MEDS ORDERED: Milk Of Ma400 MG/5 M PO (16:20)
[2018-05-23] MEDS ORDERED: OLAN10A PO (16:21)
[2018-05-23] MEDS ORDERED: ONDA4ODT PO (16:21)
[2018-05-23] MEDS ORDERED: QUET25 PO (16:21)
[2018-05-23] MEDS ORDERED: Zosyn 4.54.5 GM/100 IV (16:22)
[2018-05-24] MEDS ORDERED: AMOX875 PO (15:36)
== END 2018-05-24 16:05 | disposition home health service (06) | DRG 853 ==
LOC: ER 10:45 → MEDS 13:45 → PCU 05-09 18:05 → MEDS 05-12 12:47
PROVIDERS: Emergency Medicine; Family Medicine; Internal Medicine; Podiatrist Foot & Ankle Surgery
PROC: 0Y6P0Z0 Detachment at Right 1st Toe, Complete, Open Approach (ICD-10-PCS; principal; 2018-05-09 13:00)
PROC: 0Y6R0Z0 Detachment at Right 2nd Toe, Complete, Open Approach (ICD-10-PCS; 2018-05-09 13:00)
DX: A41.9 Sepsis, unspecified organism (principal); A48.0 Gas gangrene; I50.22 Chronic systolic (congestive) heart failure; L03.115 Cellulitis of right lower limb; Z68.41 Body mass index [BMI] 40.0-44.9, adult; E11.52 Type 2 diabetes mellitus with diabetic peripheral angiopathy with gangrene; I13.0 Hypertensive heart and chronic kidney disease with heart failure and stage 1 through stage 4 chronic kidney disease, or unspecified chronic kidney disease; M86.171 Other acute osteomyelitis, right ankle and foot; J45.909 Unspecified asthma, uncomplicated; Z79.84 Long term (current) use of oral hypoglycemic drugs; Z87.891 Personal history of nicotine dependence; Z91.14 Patient's other noncompliance with medication regimen; E78.5 Hyperlipidemia, unspecified; K21.9 Gastro-esophageal reflux disease without esophagitis; E66.01 Morbid (severe) obesity due to excess calories; E11.621 Type 2 diabetes mellitus with foot ulcer; L97.519 Non-pressure chronic ulcer of other part of right foot with unspecified severity; F20.9 Schizophrenia, unspecified; I87.2 Venous insufficiency (chronic) (peripheral); R41.89 Other symptoms and signs involving cognitive functions and awareness; B95.4 Other streptococcus as the cause of diseases classified elsewhere; B96.4 Proteus (mirabilis) (morganii) as the cause of diseases classified elsewhere; B96.89 Other specified bacterial agents as the cause of diseases classified elsewhere; I48.0 Paroxysmal atrial fibrillation
CPT/HCPCS: 36415; 71046; 73630; 80048; 80053; 80202; 82010; 82550; 82947; 83036; 83605; 83735; 83880; 84484; 85025; 85027; 85651; 86140; 87040; 87070; 87075; 87077; 87147; 87185; 87186; 87205; 88305; 88311; 93005; 93010; 93922; 94760; 96374; 97163; 97166; 97530; 97535; 99285-25; G0515; G8978; G8979; G8987; G8988; J0282; J0330; J2001; J2370; J2543; J3010; J3370; J3475; J7050; J7120

== ENCOUNTER 2019-03-07 11:00 | Inpatient (IN) | payer MEDICARE, OTHER ==
[~2019-03-07] VITALS: Ht 182.9 cm; Wt 90.7 kg
[~2019-03-07 11:00] MED LIST changes: +ACET325 PO; +AMOX875 PO; +CEPH250A PO; +DOCU100 PO; +Glucophage1000 MG PO; +HUMALOG KW200 UNIT/1 SC; +LORATADINE10 MG PO; +LOSA50 PO; +Milk Of Ma400 MG/5 M PO; +OLAN10A PO; +ONDA4ODT PO; +QUET25 PO; +ROXICODONE5 MG PO; +Zosyn 4.54.5 GM/100 IV
[2019-03-07 12:19] LABS: EOSINOPHILS ABSOLUTE AUTO 0.02 K/mm3 (0.00-0.68); EOSINOPHILS PERCENT AUTO 0 % (0-6); Hematocrit 33.7 % (37.0-53.0); Hemoglobin 11.1 g/dL (13.5-17.5); IMMATURE GRAN ABSOLUTE AUTO 1.59 K/mm3 (0.00-0.10); IMMATURE GRAN PERCENT AUTO 5 % (0-1); LYMPHOCYTES ABSOLUTE AUTO 1.42 K/mm3 (0.84-5.20); LYMPHOCYTES PERCENT AUTO 4 % (21-46); MONOCYTES ABSOLUTE AUTO 1.37 K/mm3 (0.16-1.47); MONOCYTES PERCENT AUTO 4 % (4-13); Mean Corpuscular HGB 28.5 pg (26.0-34.0); Mean Corpuscular HGB Conc 32.9 g/dL (31.5-36.5); Mean Corpuscular Volume 87 fL (80-100); Mean Platelet Volume 8.9 fL (9.1-12.4); NEUTROPHILS PERCENT AUTO 86 % (41-73); Platelet Count 615 K/mm3 (150-400); RDW Coefficient Variation 14.1 % (11.7-14.2); RDW Standard Deviation 44.5 fL (35.1-46.3); Red Blood Cell Count 3.89 M/mm3 (4.30-5.90); White Blood Cell Count 31.97 K/mm3 (4.00-11.30)
[2019-03-07] MEDS ORDERED: LOSA50 PO (12:22)
[2019-03-07 12:23] LABS: BASOPHILS ABSOLUTE AUTO 0.07 K/mm3 (0.00-0.23); BASOPHILS PERCENT AUTO 0 % (0-2)
[2019-03-07] MEDS ORDERED: QUET25 PO (12:23)
[2019-03-07 12:37] LABS: CPK Creatine Kinase 44 U/L (39-308); Troponin I <0.015 ng/mL (0.000-0.040)
[2019-03-07 12:45] LABS: Creatine Kinase MB <1.0 ng/mL (0.0-3.6); Creatine Kinase MB Index Unable to Calculate (0.0-4.0)
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
--- NOTE | 2019-03-07 15:12 | NUR ---
Late Entry from Initial Visit. Documentation from previous hospital stay with Dr Carlin's recommendation of Pt's inability to make healthcare decisions, financial decisions, and guardianship needed noted.
[2019-03-07 16:52] LABS: Albumin, Blood 1.9 g/dL (3.4-5.0); Anion Gap 12 mmol/L (6-16); Blood Urea Nitrogen 56 mg/dL (8-24); Bun/Creatinine Ratio 44.1 (12.0-20.0); CO2, Blood 14 mmol/L (21-32); Calcium, Blood 8.7 mg/dL (8.5-10.1); Chloride, Blood 98 mmol/L (98-108); Creatinine, Blood 1.27 mg/dL (0.60-1.20); Glomerular Filtration Rate >60 (60-); Glucose, Blood 354 mg/dL (70-99); Phosphorus, Blood 4.6 mg/dL (2.5-4.9); Potassium, Blood 5.8 mmol/L (3.5-5.5); Sodium, Blood 124 mmol/L (136-145)
--- NOTE | 2019-03-07 19:35 | NUR ---
1710: PT TO U 15 FROM ER, REPORT RECEIVED. 1900: PT HAS MULTIPLE EXTENSIVE ULCERATIONS TO BILAT LOWER EXTREMS, FOUL ODOR PRESENT, MAGGOTS CRAWLING. MAGGOTS REMOVED WITH SUCTION, SOME WOUNDS WEEPING SEROSANG FLUID, WOUNDS TO BOTTOMS OF FEET ARE BLACK, SKIN RED, EXCORIATED IN AREAS, DRY AND FLAKY IN AREAS. FLUFF GAUZE SOAKED WITH STERILE SALINE AND LAID OVER LOWER BLE'S AND BILAT FEET, WRAPPED WITH KERLIX AND THEN TUBE GAUZE. CONSULTS CALLED, ABX ADMINISTERED. GROIN RED AND EXCORIATED, NO OPEN SORES NOTED. PT DOES NOT APPEAR TO FULLY UNDERSTAND SITUATION, BELIEVES MAGGOTS ARE PRESENT D/T KEFLEX, APPEARS TO HAVE SOME LEARNING DISABILITY AND PARANOID BEHAVIORS, REFUSES LOVENOX FOR PARANOID REASONS. [facility]
[2019-03-08 03:48] LABS: BASOPHILS ABSOLUTE AUTO 0.15 K/mm3 (0.00-0.23); BASOPHILS PERCENT AUTO 1 % (0-2); EOSINOPHILS ABSOLUTE AUTO 0.21 K/mm3 (0.00-0.68); EOSINOPHILS PERCENT AUTO 1 % (0-6); Hemoglobin 10.5 g/dL (13.5-17.5); IMMATURE GRAN ABSOLUTE AUTO 1.24 K/mm3 (0.00-0.10); IMMATURE GRAN PERCENT AUTO 5 % (0-1); LYMPHOCYTES ABSOLUTE AUTO 2.01 K/mm3 (0.84-5.20); LYMPHOCYTES PERCENT AUTO 8 % (21-46); MONOCYTES ABSOLUTE AUTO 1.32 K/mm3 (0.16-1.47); MONOCYTES PERCENT AUTO 5 % (4-13); Mean Corpuscular HGB 28.6 pg (26.0-34.0); Mean Corpuscular HGB Conc 32.8 g/dL (31.5-36.5); Mean Corpuscular Volume 87 fL (80-100); Mean Platelet Volume 8.6 fL (9.1-12.4); NEUTROPHILS ABSOLUTE AUTO 20.91 K/mm3 (1.96-9.15); NEUTROPHILS PERCENT AUTO 81 % (41-73); Platelet Count 526 K/mm3 (150-400); RDW Coefficient Variation 14.2 % (11.7-14.2); RDW Standard Deviation 45.6 fL (35.1-46.3); Red Blood Cell Count 3.67 M/mm3 (4.30-5.90); White Blood Cell Count 25.84 K/mm3 (4.00-11.30)
[2019-03-08 04:03] LABS: Anion Gap 7 mmol/L (6-16); Blood Urea Nitrogen 31 mg/dL (8-24); Bun/Creatinine Ratio 41.3 (12.0-20.0); CO2, Blood 21 mmol/L (21-32); Calcium, Blood 8.2 mg/dL (8.5-10.1); Chloride, Blood 109 mmol/L (98-108); Creatinine, Blood 0.75 mg/dL (0.60-1.20); Glomerular Filtration Rate >60 (60-); Glucose, Blood 173 mg/dL (70-99); Potassium, Blood 4.4 mmol/L (3.5-5.5); Sodium, Blood 137 mmol/L (136-145)
--- NOTE | 2019-03-08 05:26 | NUR ---
PCU NOC SHIFT SUMMARY PATIENT ALERT AND ORIENTED TO SELF, FOLLOWS DIRECTIONS AND LOCATION. PATIENT HAS SEVERE BLE WOUNDS (NOTED PICTURES IN CHART) WOUNDS CLEANED AGAIN THIS SHIFT AND REDRESSED - MAGGOTS ARE CONTINUING TO GUY W/I WOUNDS - CLEANS BEST ABLE W/ PATIENTS PAIN/DISCOMFORT. PATIENT ALSO HAS WOUNDS ON GROIN AND COCCYX. PATIENT REMAIN ON ROOM AIR T/O SHIFT. PATIENT IN AFIB IN THE 115-130'S - PROVIDER MD PUENTE CALLED AND ORDERS GIVEN FOR FLUIDS. NO FURTHER EVENTS NOTED. PATIENT ON BEDREST AT THIS TIME. AWAITING MD ORDERS FROM CONSULTS. REPORTED TO MILENA WANG.
[2019-03-08 14:22] LABS: Vancomycin, Trough 11.4 ug/mL (5.0-10.0)
--- NOTE | 2019-03-08 16:04 | NUR ---
MET WITH PATIENT TODAY. PT DOES NOT APPEAR TO UNDERSTAND HOW SERIOUS LEG INFECTION IS. MD TRIES TO EDUCATE PATIENT HOWEVER PT INSISTS THAT HE WILL GET BETTER WITH ANTIBIIOTICS AND NO NEED FOR AMPUTATION OF LOWER EXTREMITIES IS NECESSARY. EVEN THOUGH INSISTS AND SHOWS PT AMOUND OF OPEN WOUNDS AND SPEAKS WITH HIM ABOUT SERIOIUSNESS OF LETTING THIS INFECTION CONTINUE COULD BE LIFE THREATENING. WOUNDS ARE OPEN AND WEEPING. MAGGOTS ARE PRESENT AND ARE SUCTIONED OFF USING YONKUR. BLACK TISSUE NOTED IN WOUNDS ON BOTTOM OF FEET AND IN BETWEEN TOES. MAGGOTS ARE PRESENT IN BOTH LEGS IN LARGE AMOUNTS IN WOUNDS. WOUNDS ARE CLEANSED WITH SOAP AND WATER AND REBANDAGED PER ORDERS. PT IS PLACED BACK IN BED IN SUPINE POSITION WITH FEET ELEVATED O N PILLOWS. PT DOES ASK REPEATEDLY TO GET OUT OF BED TO WALK TO BATHROOM. HE IS EDUCATED ON SERIOUSNESS OF WOUNDS AND THAT WALKING AT THIS TIME IS NEXT TO IMPOSSIBLE WITH THE AMOUNT OF INFECTION AND OPEN AREAS ON BOTH LEGS. PT USES BEDPAIN WITHOUT RESULTS. USES URINAL X 1 WITH 600ML OUTPUT DARK KALLIE URINE. BED CHANGE IS NECESSARY X 2 TODAY FOR INCONTINENCE ISSUES.
[2019-03-09 03:58] LABS: EOSINOPHILS ABSOLUTE AUTO 0.62 K/mm3 (0.00-0.68); EOSINOPHILS PERCENT AUTO 3 % (0-6); Hematocrit 31.9 % (37.0-53.0); Hemoglobin 9.9 g/dL (13.5-17.5); IMMATURE GRAN ABSOLUTE AUTO 1.76 K/mm3 (0.00-0.10); IMMATURE GRAN PERCENT AUTO 8 % (0-1); LYMPHOCYTES ABSOLUTE AUTO 2.34 K/mm3 (0.84-5.20); LYMPHOCYTES PERCENT AUTO 11 % (21-46); MONOCYTES ABSOLUTE AUTO 0.98 K/mm3 (0.16-1.47); MONOCYTES PERCENT AUTO 5 % (4-13); Mean Platelet Volume 8.7 fL (9.1-12.4); NEUTROPHILS ABSOLUTE AUTO 15.48 K/mm3 (1.96-9.15); NEUTROPHILS PERCENT AUTO 73 % (41-73); Platelet Count 496 K/mm3 (150-400); RDW Coefficient Variation 14.2 % (11.7-14.2); RDW Standard Deviation 47.3 fL (35.1-46.3); Red Blood Cell Count 3.53 M/mm3 (4.30-5.90); White Blood Cell Count 21.33 K/mm3 (4.00-11.30)
[2019-03-09 04:01] LABS: BASOPHILS ABSOLUTE AUTO 0.15 K/mm3 (0.00-0.23); BASOPHILS PERCENT AUTO 1 % (0-2); Mean Corpuscular Volume 90 fL (80-100)
[2019-03-09 04:16] LABS: BASOPHILS ABSOLUTE MAN 0.21 K/mm3 (0.00-0.23); BASOPHILS PERCENT MAN 1 % (0-2); EOSINOPHILS ABSOLUTE MAN 0.85 K/mm3 (0.00-0.68); EOSINOPHILS PERCENT MAN 4 % (0-6); LYMPHOCYTES ABSOLUTE MAN 1.27 K/mm3 (0.84-5.20); LYMPHOCYTES PERCENT MAN 6 % (21-46); METAMYELOCYTE ABSOLUTE MAN 0.21 K/mm3 (0.00-0.00); METAMYELOCYTE PERCENT MAN 1 % (0-0); MONOCYTES ABSOLUTE MAN 0.85 K/mm3 (0.16-1.47); MONOCYTES PERCENT MAN 4 % (4-13); NEUTROPHILS ABSOLUTE MAN 17.91 K/mm3 (1.96-9.15); SEG NEUTROPHILS PERCENT MAN 84 % (41-73); TOTAL CELLS COUNTED 100
[2019-03-09 04:17] LABS: Albumin, Blood 1.4 g/dL (3.4-5.0); Anion Gap 7 mmol/L (6-16); Blood Urea Nitrogen 18 mg/dL (8-24); CO2, Blood 22 mmol/L (21-32); Chloride, Blood 109 mmol/L (98-108); Creatinine, Blood 0.64 mg/dL (0.60-1.20); Glomerular Filtration Rate >60 (60-); Glucose, Blood 172 mg/dL (70-99); Phosphorus, Blood 2.9 mg/dL (2.5-4.9); Potassium, Blood 4.2 mmol/L (3.5-5.5); Sodium, Blood 138 mmol/L (136-145)
--- NOTE | 2019-03-09 05:16 | NUR ---
END OF ASHIFT SUMMARY VSS. NO ACUTE CHANGES THIS SHIFT. WOUNDS CLEANSED PER KRNACIK ORDERS AND REDRESSED. BEDDING CHANGED. PT HAS REQUIRED SOME RESPOSTIONING HELP FROM STAFF. PT PLEASANT AND COOPERATIVE. WOUNDS CONTINUE TO PRODUCE MAGGOTS, SUCTIONED OUT VIA YANKAUER PER ORDERS. PT CONTINUES TO BE WITHDRAWN. PT DENIES HOW POORLY HIS FEET SITUATION IS, BELIEVES ANTIBIOTICS WILL"SAVE HIS FEET". FEET APPEAR GANGRENOUS AND "ROTTING". EXTREME ODIFEROUS SMELL FROM FEET/LEGS. PT VERY PAINFUL TO TOUCH IN THESE AREAS. CALL LIGHT WITHIN REACH WHOLE SHIFT. PT USES IT APPROPRIATELY. WILL CONTINUE TO MONITOR PT UNTIL SHIFT CHANGE.
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
--- NOTE | 2019-03-09 22:52 | NUR ---
PCU NOC SHIFT - ASSUMED CARE PATIENT ALERT AND ORIENTED TO SELF, LOCATION AND SOME SITUATION. DISCUSSED PATIENTS BLE WOUNDS WITH HIM AND AMPUTATION - PATIENT BECAME DEFENSIVE AND REPORTED THAT HE DIDN'T WANT TO TALK ABOUT 'THAT' AND THAT HE IS HOPEFUL THE ANTIBIOTICS WILL TREAT HIS WOUNDS. PATIENT REPORTS MILD PAIN - MEDICATED PER EMAR. RESP E/U ON ROOM AIR. PATIENT REMAINS IN AFIB IN THE 110'S. NO ACUTE EVENTS NOTED AT THIS TIME. CALL LIGHT W/I REACH, WILL CONTINUE TO MONITOR. CBG'S PER ORDER COMPLETED.
--- NOTE | 2019-03-10 03:00 | NUR ---
BILATERAL LOWER EXTREMETY DRESSING CHANGE OLD DRESSINGS REMOVED; PATIENT SAT UP ON SIDE OF BED AND SOAKED BOTH FEET IN LUKE WARM SOAPY WATER FOR 30 MINUTES - GENTLY 'WIPED' BLE DOWN WITH SOAPY WATER AT WASH RAGS - PATIENT TOLERATED MINIMALLY WELL - BLE DRIED AND FOAM ABSORBANT DRESSINGS APPLIED AND SECURED WITH ANGELLA WRAP AND SLEEVE. PCU NOC SHIFT SUMMARY PATIENT REMAINS ON ROOM AIR. VOIDS KALLIE URINE X1 THIS SHIFT AND HAS NOT HAD A BOWEL MOVEMENT SINCE ADMIT. PATIENT REPOSTIONED Q2 FOR COMFORT AND RELIEF OF ULCERS ON COCCYX. PATIENT REMAINS IN AFIB IN THE 110'S NO ACUTE EVENTS NOTED. WILL CONTINUE TO MONITOR AND REPORT TO VALE WANG.
[2019-03-10 04:07] LABS: BASOPHILS ABSOLUTE AUTO 0.28 K/mm3 (0.00-0.23); BASOPHILS PERCENT AUTO 1 % (0-2); EOSINOPHILS ABSOLUTE AUTO 1.06 K/mm3 (0.00-0.68); EOSINOPHILS PERCENT AUTO 5 % (0-6); Hematocrit 32.2 % (37.0-53.0); Hemoglobin 10.1 g/dL (13.5-17.5); IMMATURE GRAN ABSOLUTE AUTO 2.05 K/mm3 (0.00-0.10); IMMATURE GRAN PERCENT AUTO 10 % (0-1); LYMPHOCYTES PERCENT AUTO 13 % (21-46); MONOCYTES ABSOLUTE AUTO 0.88 K/mm3 (0.16-1.47); MONOCYTES PERCENT AUTO 4 % (4-13); Mean Corpuscular HGB 28.4 pg (26.0-34.0); Mean Corpuscular HGB Conc 31.4 g/dL (31.5-36.5); Mean Corpuscular Volume 90 fL (80-100); Mean Platelet Volume 8.6 fL (9.1-12.4); NEUTROPHILS ABSOLUTE AUTO 14.46 K/mm3 (1.96-9.15); NEUTROPHILS PERCENT AUTO 67 % (41-73); Platelet Count 520 K/mm3 (150-400); RDW Coefficient Variation 14.2 % (11.7-14.2); RDW Standard Deviation 47.2 fL (35.1-46.3); Red Blood Cell Count 3.56 M/mm3 (4.30-5.90); White Blood Cell Count 21.53 K/mm3 (4.00-11.30)
[2019-03-10 04:28] LABS: Albumin, Blood 1.4 g/dL (3.4-5.0); Anion Gap 5 mmol/L (6-16); Blood Urea Nitrogen 13 mg/dL (8-24); Bun/Creatinine Ratio 18.7 (12.0-20.0); CO2, Blood 26 mmol/L (21-32); Chloride, Blood 105 mmol/L (98-108); Glomerular Filtration Rate >60 (60-); Glucose, Blood 147 mg/dL (70-99); Phosphorus, Blood 3.4 mg/dL (2.5-4.9); Potassium, Blood 4.2 mmol/L (3.5-5.5); Sodium, Blood 136 mmol/L (136-145)
[2019-03-10 05:39] LABS: BAND PERCENT MAN 1 % (0-8); BASOPHILS PERCENT MAN 0 % (0-2); EOSINOPHILS ABSOLUTE MAN 1.07 K/mm3 (0.00-0.68); EOSINOPHILS PERCENT MAN 5 % (0-6); LYMPHOCYTES ABSOLUTE MAN 1.72 K/mm3 (0.84-5.20); LYMPHOCYTES PERCENT MAN 8 % (21-46); METAMYELOCYTE ABSOLUTE MAN 0.43 K/mm3 (0.00-0.00); METAMYELOCYTE PERCENT MAN 2 % (0-0); MONOCYTES ABSOLUTE MAN 0.64 K/mm3 (0.16-1.47); MONOCYTES PERCENT MAN 3 % (4-13); MYELOCYTE ABSOLUTE MAN 0.43 K/mm3 (0.00-0.00); MYELOCYTE PERCENT MAN 2 % (0-0); NEUTROPHILS ABSOLUTE MAN 17.22 K/mm3 (1.96-9.15); SEG NEUTROPHILS PERCENT MAN 79 % (41-73); TOTAL CELLS COUNTED 100
[2019-03-10 14:43] LABS: Vancomycin, Trough 14.7 ug/mL (5.0-10.0)
[2019-03-10 15:03] LABS: C-REACTIVE PROTEIN, EXT RANGE 6.82 mg/dL (0.000-0.300)
--- NOTE | 2019-03-10 15:28 | NUR ---
Pal Spiritual Care inital visit: Mr. Marvin asked for a visit and a Bible. I brought Bible, but he denied need for prayer or emotional support. He had just finished his lunch and was trying to get comfortable in bed. He said he did not want a visitor. I will remain available.
--- NOTE | 2019-03-10 18:33 | NUR ---
SHIFT SUMMARY PT RESTING IN BED THROUGHOUT THE DAY. ALERT AND ORIENTED X3. C/O MILD BACK PAIN, MEDICATED WITH PRN PAIN MEDS AND REPOSITIONING. LUNG SOUNDS CLEAR, DIMINISHED BASES. AFIB RATE 100-120 PER TELEMETRY. RED GROIN NOTED, PT REFUSED TO HAVE NYSTATIN APPLIED TO GROIN. PT REFUSED TO TAKE LOVENOX SHOT ALSO, MD AWARE. BLE DRSG CDI, DRESSINGS CHANGED WITH SOAP AND WATER, NON ADHERENT DRSGS APPLIED, WRAPPED IN KERLEX. PT TOLERATED DRSG CHANGE WELL. UP TO BEDSIDE COMMODE WITH 1 PERSON ASSIST X1 TODAY. WILL CONTINUE TO MONITOR.
--- NOTE | 2019-03-11 01:00 | NUR ---
WOUND DRESSING CHANGE FEET SOAKED X 20 MINUTES - PAT TO AIR DRY. NEW NONE ADHESIVE DRESSINGS APPLIED WRAPPED IN MESH. PATIENT TOLERATED WELL. NO MAGGOTS NOTED.
[2019-03-11 04:03] LABS: BASOPHILS ABSOLUTE AUTO 0.27 K/mm3 (0.00-0.23); BASOPHILS PERCENT AUTO 1 % (0-2); EOSINOPHILS PERCENT AUTO 3 % (0-6); Hematocrit 32.9 % (37.0-53.0); Hemoglobin 10.4 g/dL (13.5-17.5); IMMATURE GRAN PERCENT AUTO 8 % (0-1); LYMPHOCYTES ABSOLUTE AUTO 2.63 K/mm3 (0.84-5.20); LYMPHOCYTES PERCENT AUTO 12 % (21-46); MONOCYTES ABSOLUTE AUTO 1.02 K/mm3 (0.16-1.47); MONOCYTES PERCENT AUTO 5 % (4-13); Mean Corpuscular HGB 28.1 pg (26.0-34.0); Mean Corpuscular HGB Conc 31.6 g/dL (31.5-36.5); Mean Corpuscular Volume 89 fL (80-100); Mean Platelet Volume 8.7 fL (9.1-12.4); NEUTROPHILS PERCENT AUTO 70 % (41-73); Platelet Count 449 K/mm3 (150-400); RDW Coefficient Variation 14.4 % (11.7-14.2); RDW Standard Deviation 46.4 fL (35.1-46.3); White Blood Cell Count 21.32 K/mm3 (4.00-11.30)
[2019-03-11 04:20] LABS: Albumin, Blood 1.4 g/dL (3.4-5.0); Anion Gap 6 mmol/L (6-16); Blood Urea Nitrogen 10 mg/dL (8-24); Bun/Creatinine Ratio 18.1 (12.0-20.0); CO2, Blood 23 mmol/L (21-32); Calcium, Blood 7.9 mg/dL (8.5-10.1); Chloride, Blood 105 mmol/L (98-108); Creatinine, Blood 0.55 mg/dL (0.60-1.20); Glomerular Filtration Rate >60 (60-); Glucose, Blood 169 mg/dL (70-99); Phosphorus, Blood 3.4 mg/dL (2.5-4.9); Potassium, Blood 4.3 mmol/L (3.5-5.5); Sodium, Blood 134 mmol/L (136-145)
--- NOTE | 2019-03-11 05:11 | NUR ---
PCU NOC SHIFT SUMMARY PATIENT ALERT AND ORIENTED TO SELF, LOCATION AND SOME OF SITUATION - PATIENT HAS GRANDIOS IDEATIONS AND REMAINS PARANOID T/O SHIFT. PATIENT MODEST AND BECOMES UNCOMFORTABLE AT TIMES WITH CARE - PATIENT EDUCATED AND REASSURED. PATIENT HAS BLE AND BACK PAIN - RELIEVED WITH MEDICATION PER EMAR. PATIENT REMAINS ON ROOM AIR T/O SHIFT AND VSS WITH EXCEPTION OF HEART RATE AFIB IN THE 115'S. PATIENT CAN STAND AND TRANSFER WITH SBA. NO ACUTE EVENTS T/O SHIFT. WILL CONTINUE TO MONITER AND REPORT TO DAYSHIFT RN.
[2019-03-11 05:22] LABS: BAND PERCENT MAN 5 % (0-8); BASOPHILS ABSOLUTE MAN 0.21 K/mm3 (0.00-0.23); BASOPHILS PERCENT MAN 1 % (0-2); EOSINOPHILS ABSOLUTE MAN 0.42 K/mm3 (0.00-0.68); EOSINOPHILS PERCENT MAN 2 % (0-6); LYMPHOCYTES ABSOLUTE MAN 1.49 K/mm3 (0.84-5.20); LYMPHOCYTES PERCENT MAN 7 % (21-46); METAMYELOCYTE ABSOLUTE MAN 0.21 K/mm3 (0.00-0.00); METAMYELOCYTE PERCENT MAN 1 % (0-0); MONOCYTES ABSOLUTE MAN 1.49 K/mm3 (0.16-1.47); MONOCYTES PERCENT MAN 7 % (4-13); MYELOCYTE ABSOLUTE MAN 0.21 K/mm3 (0.00-0.00); MYELOCYTE PERCENT MAN 1 % (0-0); NEUTROPHILS ABSOLUTE MAN 17.26 K/mm3 (1.96-9.15); SEG NEUTROPHILS PERCENT MAN 76 % (41-73); TOTAL CELLS COUNTED 100
--- NOTE | 2019-03-11 11:57 | NUR ---
Received call from bedside nurse that family is at bedside and would like a visit from palliative care. Pt resting in bed upon arrival and moderate dyspnea noted. Engaged in therapeutic conversation with Pt and family regarding goals and discharge plan. Pt is aware of 's inability to care for him at home and is agreeable with discharging to facility on hospice. Pt states "As long as everone is knows that if I improve then I want to go home". Validated Pt's concerns and reinforced education of prognosis and likelyhood of any improvement with V/U made by Pt. Choices given for hospice agencies. Family and Pt choose [facility]. Left voice message for both wound care center consultant Marie and [facility] Liason Mary Beth regarding choice of hospice agency and family request to speak with Liason and wound care center consultant before they leave today. Spoke with bedside nurse Radha regarding Pt and family's plan for discharge. Palliative Care will remain available.
--- NOTE | 2019-03-11 14:33 | NUR ---
WOUND CARE PT STATES HE DOES NOT WANT THE WET DRSG CHANGES DONE BECAUSE THEY ARE TOO PAINFUL. HE WILL TAKE THE ANTIBIOTICS, STATES "THAT WILL BE ENOUGH TO HELP MY LEGS". 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 I DON'T WANT THE WET DRSG CHANGES". PT INFORMED AND ENCOURAGED WITH THE IMPORTANCE OF DRESSING CHANGES TO HELP HIS LEGS. PT STATES "I WILL TAKE THE ANTIBIOTICS, BUT I DO NOT WANT THE WET DRSG CHANGES". WILL CONTINUE TO ATTEMPT DRESSING CHANGES TO BLE.
--- NOTE | 2019-03-11 17:46 | NUR ---
SHIFT SUMMARY PT RESTING IN BED THROUGHOUT THE DAY. VSS. ALERT AND ORIENTED X3. C/O MILD TO MODERATE PAIN TO BLE, MEDICATED WITH PRN PAIN MEDS. LUNG SOUNDS CLEAR, AFIB ON TELEMETRY RATE 100-120s. BILATERAL LEG DRSG REMOVED, ATTEMPTED TO CLEAN WOUNDS, BUT PT WAS VERY RESISTANT TO SOAP AND WATER. LIGHTLY PATTED THE WOUNDS WITH WOUND CLEANSER AND STERILE GAUZE. NEW NON-ADHERENT DRSG APPLIED, WRAPPED IN KERLEX. PT TOLERATED FAIRLY WELL. WILL CONTINUE TO MONITOR.
[2019-03-12 04:54] LABS: Hematocrit 31.4 % (37.0-53.0); Mean Corpuscular HGB Conc 31.8 g/dL (31.5-36.5); Mean Corpuscular Volume 88 fL (80-100); Mean Platelet Volume 8.6 fL (9.1-12.4); Platelet Count 458 K/mm3 (150-400); RDW Coefficient Variation 14.4 % (11.7-14.2); RDW Standard Deviation 46.1 fL (35.1-46.3); Red Blood Cell Count 3.57 M/mm3 (4.30-5.90); White Blood Cell Count 19.33 K/mm3 (4.00-11.30)
--- NOTE | 2019-03-12 04:58 | NUR ---
SHIFT SUMMARY PT PCU TRANSFER. ALERT AND ORIENTED X4. PT HAS BILAT LEG DRESSINGS ON, C/D/I, THERE IS AN ODOR. PT ALSO HAS MEPILEX IN PLACE TO COCCYX FOR PRESSURE ULCER THERE. ALL PICS OF WOUNDS AND OPEN AREAS IN CHART. PT RECEIVING IV ANTIBIOTICS. PT C/O BILAT LEG PAIN, MEDICATED X1 THIS SHIFT. HAS SLEPT WELL SINCE ARRIVING TO UNIT, WILL CONTINUE TO MONITOR.
[2019-03-12 05:25] LABS: BASOPHILS ABSOLUTE MAN 0.19 K/mm3 (0.00-0.23); BASOPHILS PERCENT MAN 1 % (0-2); EOSINOPHILS ABSOLUTE MAN 0.19 K/mm3 (0.00-0.68); EOSINOPHILS PERCENT MAN 1 % (0-6); LYMPHOCYTES PERCENT MAN 14 % (21-46); MONOCYTES ABSOLUTE MAN 0.57 K/mm3 (0.16-1.47); MONOCYTES PERCENT MAN 3 % (4-13); MYELOCYTE ABSOLUTE MAN 0.19 K/mm3 (0.00-0.00); MYELOCYTE PERCENT MAN 1 % (0-0); NEUTROPHILS ABSOLUTE MAN 15.46 K/mm3 (1.96-9.15); SEG NEUTROPHILS PERCENT MAN 80 % (41-73); TOTAL CELLS COUNTED 100
[2019-03-12 05:26] LABS: Albumin, Blood 1.4 g/dL (3.4-5.0); Anion Gap 5 mmol/L (6-16); Blood Urea Nitrogen 9 mg/dL (8-24); Bun/Creatinine Ratio 14.5 (12.0-20.0); CO2, Blood 28 mmol/L (21-32); Calcium, Blood 7.7 mg/dL (8.5-10.1); Chloride, Blood 103 mmol/L (98-108); Creatinine, Blood 0.62 mg/dL (0.60-1.20); Glomerular Filtration Rate >60 (60-); Glucose, Blood 131 mg/dL (70-99); Phosphorus, Blood 3.3 mg/dL (2.5-4.9); Potassium, Blood 3.9 mmol/L (3.5-5.5); Sodium, Blood 136 mmol/L (136-145)
--- NOTE | 2019-03-12 16:06 | NUR ---
SHIFT SUMMARY NO ACUTE CHANGES. PATIENT RESTING IN BED THIS SHIFT. PATIENT ABLE TO CHANGE POSITION INDEPENDENTLY IN BED. WOUND CARE COMPLETED. PATIENT CONTINUES TO DECLINE LOVENOX INJECTION. PATIENT MEDICATED X 1 FOR PAIN THIS SHIFT, DENIES NAUSEA AND SHORTNESS OF BREATH. APS WORKER MET WITH PATIENT. CALL LIGHT IN REACH, WILL CONTINUE TO MONITOR.
--- NOTE | 2019-03-13 02:26 | NUR ---
LATE ENTRY 03/12/19 @ 2125 OFFER WOUND CARE; PATIENT INDIFFERENT ABOUT, STATES DOES NOT WANT ANYTHING WET APPLIED TO THE SKIN. WCTM.
--- NOTE | 2019-03-13 03:58 | NUR ---
SHIFT SUMMARY A/O, ABLE TO MAKE NEEDS KNOWN. VERY ADIMANT ABOUT HOW HE WANTS HIS CARE DONE. REFUSED WOUND CARE THIS SHIFT; STATED HE DID NOT WANT ANYTHING WET APPLIED TO THE SKIN. NO C/O PAIN THUS FAR. REPOSITIONED. STATES FREQUENTLY THAT HE WOULD LIKE HIS BACK SCRATCHED. RR ELEVATED; PATIENT DOES NOT APPEAR TO BE IN ANY DISTRESS DURING TIMES OF ELEVATED RR, SUPERVISOR FIREARMS AWARE. APPEARED TO GET MINIMAL REST DURING SHIFT. WCTM. BED REMAINS IN LOWEST POSITION. CALL LIGHT AND BELONGINGS WITHIN REACH. REPORT GIVEN TO ONCOMING SHIFT.
[2019-03-13 05:28] LABS: Hematocrit 31.8 % (37.0-53.0); Hemoglobin 10.1 g/dL (13.5-17.5); Mean Corpuscular HGB Conc 31.8 g/dL (31.5-36.5); Mean Corpuscular Volume 88 fL (80-100); Mean Platelet Volume 8.6 fL (9.1-12.4); Platelet Count 469 K/mm3 (150-400); RDW Coefficient Variation 14.4 % (11.7-14.2); RDW Standard Deviation 46.1 fL (35.1-46.3); Red Blood Cell Count 3.61 M/mm3 (4.30-5.90); White Blood Cell Count 18.81 K/mm3 (4.00-11.30)
[2019-03-13 05:47] LABS: BAND PERCENT MAN 2 % (0-8); BASOPHILS PERCENT MAN 0 % (0-2); EOSINOPHILS ABSOLUTE MAN 0.94 K/mm3 (0.00-0.68); EOSINOPHILS PERCENT MAN 5 % (0-6); LYMPHOCYTES ABSOLUTE MAN 1.69 K/mm3 (0.84-5.20); LYMPHOCYTES PERCENT MAN 9 % (21-46); METAMYELOCYTE ABSOLUTE MAN 0.37 K/mm3 (0.00-0.00); METAMYELOCYTE PERCENT MAN 2 % (0-0); MONOCYTES ABSOLUTE MAN 1.12 K/mm3 (0.16-1.47); MONOCYTES PERCENT MAN 6 % (4-13); NEUTROPHILS ABSOLUTE MAN 14.67 K/mm3 (1.96-9.15); SEG NEUTROPHILS PERCENT MAN 76 % (41-73); TOTAL CELLS COUNTED 100
--- NOTE | 2019-03-13 07:25 | NUR ---
ASSUMED CARE OF PT- BEDSIDE REPORT COMPLETE. PT HAS BLE WOUNDS WITH INFECTION, DRESSING IS VISIBLY C/D/I. NIGHT RN REPORTS PT VERY RESISTIVE TO WOUND CARE. ATTEMPTS WERE MADE THREE TIMES T/O THE NIGHT AND PT REFUSED WOUND CARE. PER REPORT PT HAD SEVERE INFECTION ON ARRIVAL TO THE HOSPITAL INCLUDING MAGGOTS. THERE IS A PUNGENT ODOR PRESENT IN THE ROOM. SPOKE TO THE PT DURING REPORT AND THE NEED FOR WOUND CARE AND THE PT WENT ON ABOUT [place] DISE[place] AND THE TREATMENT, CAUSEING SOME SORT OF PROBLEM. WHEN STAFF STATED WOUND CARE MUST BE DONE ORDERED, PT STATED HE MUST DO WHAT HIS RESEARCH SAYS IS RIGHT. THEN THE PT WANTED TO TALK ABOUT THE ANTHRAX SHOT HE WAS SUPPOSED TO RECIEVE. NIGHT RN CLARIFIED HE WAS REFERRING TO HIS LOVENOX SHOT, WHICH HE REFUSED. WILL ATTEMPT WOUND CARE TODAY AND SPEAK WITH THE DOCTOR IF THE PT STILL REFUSES.
--- NOTE | 2019-03-13 19:38 | NUR ---
SHIFT SUMMARY- PT HAS WOUND CARE THAT IS ORDERED BID, PT HAS DENIED PAIN AND DECLINED ALL WOUND CARE, SPOKE TO THE PT AND DR CARLTONTRATE TOLD HIM HE NEEDS TO HAVE WOUND CARE DONE, HOWEVER WHEN STAFF TALK TO HIM HE STATES YOU CAN DO THE WOUND CARE BUT HE WILL NOT ALLOW STAFF TO CLEAN THE WOUNDS. PT HAS AN IDEA OF WHAT IS CAUSING HIS INFECTION, IT ALWAYS CIRCLES BACK TO [place] DISEASE AND THE ANTHRAX SHOT STAFF TRIED TO GIVE HIM. PT HAS LOVENOX FOR DVT PROPHILAXIS PT REFUSES THIS BECAUSE HE BELIEVES IT IS AN ANTHRAX SHOT. ATTEMPTS TO EDUCATE THE PT HAVE FAILED. PT NEEDS WOUND CARE DONE PASSED ON TO NIGHT RN. WOUND CARE WILL TAKE AT LEAST TWO STAFF ONE HOUR TO COMPLETE. PASSED ON IN REPORT TO NIGHT RN MICHELLE.
[2019-03-14 05:46] LABS: Anion Gap 5 mmol/L (6-16); Blood Urea Nitrogen 9 mg/dL (8-24); Bun/Creatinine Ratio 13.9 (12.0-20.0); CO2, Blood 28 mmol/L (21-32); Calcium, Blood 7.9 mg/dL (8.5-10.1); Chloride, Blood 104 mmol/L (98-108); Creatinine, Blood 0.65 mg/dL (0.60-1.20); Glomerular Filtration Rate >60 (60-); Glucose, Blood 128 mg/dL (70-99); Potassium, Blood 3.7 mmol/L (3.5-5.5); Sodium, Blood 137 mmol/L (136-145)
--- NOTE | 2019-03-14 07:00 | NUR ---
ASSUMED CARE OF PT- BEDSIDE REPORT COMPLETED WITH NIGHT RN. PER REPORT FROM NIGHT RN PT WOUNDS WERE DRESSED IN THE NIGHT AND BANDAGES SHOULD NOT BE CHANGED Q SHIFT, INSTRUCTED TO LEAVE THEM FOR THE DAY. PT RESISTIVE TO STAFF PERFORMING WOUND CARE, WANTS ONLY DRY TREATMENT NO LIQUID. PT ALERT BUT NOT ORIENTED. PT STATED HE DOES NOT NEED PAIN MEDICATION AT THIS TIME WILL CTM.
[2019-03-14 08:34] LABS: Hematocrit 31.8 % (37.0-53.0); Hemoglobin 10.1 g/dL (13.5-17.5); Mean Corpuscular HGB 28.3 pg (26.0-34.0); Mean Corpuscular HGB Conc 31.8 g/dL (31.5-36.5); Mean Corpuscular Volume 89 fL (80-100); Mean Platelet Volume 9.1 fL (9.1-12.4); Platelet Count 490 K/mm3 (150-400); RDW Coefficient Variation 14.5 % (11.7-14.2); RDW Standard Deviation 46.3 fL (35.1-46.3); Red Blood Cell Count 3.57 M/mm3 (4.30-5.90); White Blood Cell Count 16.45 K/mm3 (4.00-11.30)
[2019-03-14 08:57] LABS: BAND PERCENT MAN 2 % (0-8); BASOPHILS ABSOLUTE MAN 0.49 K/mm3 (0.00-0.23); BASOPHILS PERCENT MAN 3 % (0-2); EOSINOPHILS ABSOLUTE MAN 0.49 K/mm3 (0.00-0.68); EOSINOPHILS PERCENT MAN 3 % (0-6); LYMPHOCYTES PERCENT MAN 14 % (21-46); METAMYELOCYTE ABSOLUTE MAN 0.16 K/mm3 (0.00-0.00); METAMYELOCYTE PERCENT MAN 1 % (0-0); MONOCYTES ABSOLUTE MAN 0.65 K/mm3 (0.16-1.47); MONOCYTES PERCENT MAN 4 % (4-13); NEUTROPHILS ABSOLUTE MAN 12.33 K/mm3 (1.96-9.15); SEG NEUTROPHILS PERCENT MAN 73 % (41-73); TOTAL CELLS COUNTED 100
--- NOTE | 2019-03-14 15:47 | NUR ---
Elbert was recumbent and appeared relaxed and pleasant. No signs of pain or distress. He responded favorably to social attention, humor and non-intrusive conversation. His communication was legible and congruent with periodic instances of questionable accuracy and grandisosity. He claimed that his biological daughters were Claritza Irby and Denisse Boyd. He recalls his previous hospitalization and reports that he had three digits removed from his right foot, but when interviewed about current surgical recommendations he rajendra that he's been told he needs a bilateral BKA. He says that his condition can be remediated with aggressive antibiotic infusion therapy and the 700 club. The psychiatrist is recommending guardianship. His professional judgement is that Elbert can no longer make his own medical decisions. I have conferred with Birdie Reza, KOTA and genie, and submitted a request to local [place] attorney Laura Yen to draft guardianship documents. Birdie will conduct her independant audit possibly on Sunday and then meet with myself and care management on Sunday.
--- NOTE | 2019-03-14 18:49 | NUR ---
SHIFT SUMMARY- PT HAS HAD NO ACUTE CHANGES T/O THE SHIFT, WOUND CARE NOT PERFORMED HOWEVER DRESSINGS WERE NOTED TO BE NEEDING CHANGED AT END OF SHIFT. WILL PASS ON IN REPORT TO NIGHT RN. PT IS STILL RESISTIVE TO WOUND CARE. PT DID GET OUT OF BED INDEPENDENTLY TO THE BEDSIDE COMODE, PERSONNEL QUALITY ASSURANCE AUDITOR INFORMED HIM HE NEEDS ASSISTANCE WITH TRANSFERS FOR SAFETY. PT HAD BEEN TOLD A BEDPAN WOULD BE NEEDED, WHEN PERSONNEL QUALITY ASSURANCE AUDITOR WENT TO GET ASSISTANCE PT GOT UP TO THE COMODE ON HIS OWN. PT HAD XXXL BM IN THE BSC. WILL PASS ON IN REPORT TO NIGHT RN.
--- NOTE | 2019-03-14 20:36 | NUR ---
ASSESSMENT COMPLETED. BEDTIME MEDS GIVEN. PATIENT DENIES PAIN AT THIS TIME. AGREED TO DO WOUND CARE DRESSING CHANGE LATER TONIGHT. IV SITE C/D/I AND FLUSHED AND SALINE LOCKED. BOOSTED PATIENT AND REPOSITIONED. B/L LEs ELEVATED. CALL FERRER WITHIN REACH.
[2019-03-15 04:32] LABS: Hemoglobin 10.4 g/dL (13.5-17.5); Mean Corpuscular HGB 28.4 pg (26.0-34.0); Mean Corpuscular HGB Conc 31.5 g/dL (31.5-36.5); Mean Corpuscular Volume 90 fL (80-100); Mean Platelet Volume 8.4 fL (9.1-12.4); Platelet Count 461 K/mm3 (150-400); RDW Coefficient Variation 14.6 % (11.7-14.2); RDW Standard Deviation 47.2 fL (35.1-46.3); Red Blood Cell Count 3.66 M/mm3 (4.30-5.90); White Blood Cell Count 14.88 K/mm3 (4.00-11.30)
[2019-03-15 05:14] LABS: BAND PERCENT MAN 2 % (0-8); BASOPHILS ABSOLUTE MAN 0.29 K/mm3 (0.00-0.23); BASOPHILS PERCENT MAN 2 % (0-2); EOSINOPHILS ABSOLUTE MAN 0.74 K/mm3 (0.00-0.68); EOSINOPHILS PERCENT MAN 5 % (0-6); LYMPHOCYTES ABSOLUTE MAN 2.23 K/mm3 (0.84-5.20); LYMPHOCYTES PERCENT MAN 15 % (21-46); METAMYELOCYTE ABSOLUTE MAN 0.14 K/mm3 (0.00-0.00); METAMYELOCYTE PERCENT MAN 1 % (0-0); MONOCYTES ABSOLUTE MAN 0.14 K/mm3 (0.16-1.47); MONOCYTES PERCENT MAN 1 % (4-13); MYELOCYTE ABSOLUTE MAN 0.29 K/mm3 (0.00-0.00); MYELOCYTE PERCENT MAN 2 % (0-0); NEUTROPHILS ABSOLUTE MAN 11.01 K/mm3 (1.96-9.15); SEG NEUTROPHILS PERCENT MAN 72 % (41-73); TOTAL CELLS COUNTED 100
--- NOTE | 2019-03-15 18:50 | NUR ---
SHIFT SUMMARY NO ACUTE CHANGES. PATIENT MEDICATED X 1 FOR PAIN THIS SHIFT. DENIES NAUSEA AND SHORTNESS OF BREATH. WOUND CARE COMPLETED. PATIENT COOPERATIVE WITH CARE MOST OF THE TIME BUT HAS CERTAIN DELUSIONS SUCH LOVENOX BEING CONNECTED TO ANTHRAX. PATIENT UP IN CHAIR THIS AFTERNOON. SISTER VISITED TODAY. CALL LIGHT IN REACH, WILL CONTINUE TO MONITOR.
[2019-03-16 05:50] LABS: BASOPHILS ABSOLUTE AUTO 0.26 K/mm3 (0.00-0.23); BASOPHILS PERCENT AUTO 2 % (0-2); EOSINOPHILS ABSOLUTE AUTO 0.77 K/mm3 (0.00-0.68); EOSINOPHILS PERCENT AUTO 6 % (0-6); Hemoglobin 10.7 g/dL (13.5-17.5); IMMATURE GRAN ABSOLUTE AUTO 0.63 K/mm3 (0.00-0.10); IMMATURE GRAN PERCENT AUTO 5 % (0-1); LYMPHOCYTES ABSOLUTE AUTO 2.69 K/mm3 (0.84-5.20); LYMPHOCYTES PERCENT AUTO 21 % (21-46); MONOCYTES ABSOLUTE AUTO 0.73 K/mm3 (0.16-1.47); MONOCYTES PERCENT AUTO 6 % (4-13); Mean Corpuscular HGB 28.4 pg (26.0-34.0); Mean Corpuscular HGB Conc 31.5 g/dL (31.5-36.5); Mean Corpuscular Volume 90 fL (80-100); Mean Platelet Volume 8.6 fL (9.1-12.4); NEUTROPHILS ABSOLUTE AUTO 7.47 K/mm3 (1.96-9.15); NEUTROPHILS PERCENT AUTO 60 % (41-73); Platelet Count 464 K/mm3 (150-400); RDW Coefficient Variation 15.3 % (11.7-14.2); RDW Standard Deviation 48.8 fL (35.1-46.3); Red Blood Cell Count 3.77 M/mm3 (4.30-5.90); White Blood Cell Count 12.55 K/mm3 (4.00-11.30)
--- NOTE | 2019-03-16 18:28 | NUR ---
SHIFT SUMMARY NO ACUTE CHANGES. PATIENT UP IN RECLINER MOST OF SHIFT. WOUND CARE COMPLETED. UP SBA FOR URINAL AND BSC. PATIENT PLEASANT AND COOPERATIVE WITH SOME DELUSIONS ABOUT CARE. CALL LIGHT IN REACH, WILL CONTINUE TO MONITOR.
--- NOTE | 2019-03-17 04:45 | NUR ---
SUMMARY: A/OX4, PLEASANT AND COOPERATIVE W/CARE BUT CAN BE CONTANKEROUS AT TIMES. HE CALLS FREQUENTLY FOR NON ACUTE REQUESTS. PT IS SBA TO BS AND USES URINAL INDEPENDENTLY. HE PREFERS TO SLEEP IN RECLINER W/LEGS ELEVATED. BLE DX'S REMAINED C/D/I AND WERE CHANGED ON DAY SHIFT. PO AUGMENTIN RECIEVED AND PT WILL D/C WHEN PLACEMENT IS ARRANGED. TYLENOL RECIVED PER PT REQUEST AND MODERATE PAIN CONTROL. NO ACUTE CHANGES, VSS/AFEBRILE. WCTM/REPORT TO DAY RN.
[2019-03-17 05:01] LABS: BASOPHILS ABSOLUTE AUTO 0.21 K/mm3 (0.00-0.23); BASOPHILS PERCENT AUTO 2 % (0-2); EOSINOPHILS ABSOLUTE AUTO 0.79 K/mm3 (0.00-0.68); EOSINOPHILS PERCENT AUTO 7 % (0-6); Hematocrit 35.5 % (37.0-53.0); Hemoglobin 11.2 g/dL (13.5-17.5); IMMATURE GRAN ABSOLUTE AUTO 0.45 K/mm3 (0.00-0.10); IMMATURE GRAN PERCENT AUTO 4 % (0-1); LYMPHOCYTES ABSOLUTE AUTO 2.55 K/mm3 (0.84-5.20); LYMPHOCYTES PERCENT AUTO 22 % (21-46); MONOCYTES ABSOLUTE AUTO 0.61 K/mm3 (0.16-1.47); MONOCYTES PERCENT AUTO 5 % (4-13); Mean Corpuscular HGB 28.9 pg (26.0-34.0); Mean Corpuscular HGB Conc 31.5 g/dL (31.5-36.5); Mean Corpuscular Volume 92 fL (80-100); Mean Platelet Volume 8.6 fL (9.1-12.4); NEUTROPHILS PERCENT AUTO 60 % (41-73); Platelet Count 471 K/mm3 (150-400); RDW Coefficient Variation 15.6 % (11.7-14.2); RDW Standard Deviation 50.4 fL (35.1-46.3); Red Blood Cell Count 3.87 M/mm3 (4.30-5.90); White Blood Cell Count 11.41 K/mm3 (4.00-11.30)
--- NOTE | 2019-03-17 10:11 | NUR ---
Discussion facilitated with Financial Operations Clerk Laura Yen, prospective guardian Birdie Reza and Mill Attendant Marie Doty. Bill audit findings coincide with Dr Roblero assessment regarding the need for a formal guardianship arrangement to make treatment and placement determinations. I've requested official guidance from our corporate quality engineer to aid us in the petitioning requirements and process.
--- NOTE | 2019-03-17 14:23 | NUR ---
REQUEST FOR ZERFORM & ARGINAID. DR. CHERY CALLED ABOUT PT WOUNDS. ORDER FOR ZEROFORM FOR BACK OF R LEG OBTAINED. DAILY ARGINAID ALSO ADDED TO DAILY MED REGIMEN TO AID IN WOUND HEALING.
--- NOTE | 2019-03-17 14:26 | NUR ---
WOUND CARE INSTRUCTIONS. WOUND CARE COMPLETED. ALL WOUNDS CLEANED WITH WOUND CLEANSER & STERILE GAUZE. UNDERSIDE OF R CALF HAS ZEROFORM PLACED. SORE ON TOP OF R MTZ HAS CALCIUM ALGINATED ON WOUND BED. TOES OF R FOOT & SOLE OF FOOT WOUND HAS CALCIUM ALGINATED ON WOUND BEDS. L DISTAL MTZ WOUND HAS CALSIUM ALGINATED ON WOUND BED. PINK AREA WITHIN ESCAR ON L HEEL HAS CALCIUM ALGINATE PLACED IN WOUND BED. ALL AREAS ON ESCAR PAINTED WITH BETADINE. INTACT SKIN OF BOTH LEGS PAINTED WITH SKIN PREP TO ASSIST WITH PREVENTING FURTHER BREAKDOWN. ALL WOUNDS COVERED WITH ABD PADS & KERLEX. JOYCELYN BANDAGE TO KEEP DRESSINGS IN PLACE. CHANGE EVERY OTHER DAY LONG DRESSINGS STAY C/D/I DR. CHERY AGREES WITH WOUND CARE INSTRUCTIONS.
--- NOTE | 2019-03-17 16:11 | NUR ---
Elbert was resting and appeared comfortable and well managed. He roused to light acoustic interference and responded favorably to social attention and active listening. No indications of stress detected or reports of pain noted. Elbert was confident and emphatic that antibiotic therapy will remediate his infection. When prospective surgical options were posed to him, he declined them saying that he's electing to use medication exclusively to heal his wounds. When pressed numerous times as to whether or not he would be open to surgical treatment if it was necessary to cure his infection, he simply repeated the same statement. I provided supportive presence, and encouragement.
--- NOTE | 2019-03-17 17:22 | NUR ---
SHIFT SUMMARY EXTENSIVE DRESSING CHANGES TO BLE. SEE PREV NOTE. NO OTHER CHANGES IN ASSESSMENT AT THIS TIME. PT UP IN RECLINER MOST THE SHIFT. REFUSED TO STAND FOR DRESSING ON COCCYX CHANGE. WILL RELAY TO NEXT SHIFT. VSS. WILL CONTINUE TO MONITOR UNTIL TURNOVER IS COMPLETE.
--- NOTE | 2019-03-17 19:41 | NUR ---
Attemtpted interaction with patient. [facility] Consider comprhensive holistic decision process with zackarydian for overall quality of life Will review questions with physicians on how the surgery may effect his mental health and can if he rehab. If pt experiences complications of healing or surgical process may increase risk of exacerbation of his mental illness. Suggest review with Physician trajectory and possible treatment of his mental health disease process and how that matches his physical care needs. Suggest evidence based care and case review with karen team on plan of care that address [facility] directive 27 and 33.
[2019-03-18 05:19] LABS: BASOPHILS ABSOLUTE AUTO 0.22 K/mm3 (0.00-0.23); BASOPHILS PERCENT AUTO 2 % (0-2); EOSINOPHILS ABSOLUTE AUTO 0.84 K/mm3 (0.00-0.68); EOSINOPHILS PERCENT AUTO 7 % (0-6); Hematocrit 35.1 % (37.0-53.0); Hemoglobin 10.8 g/dL (13.5-17.5); IMMATURE GRAN ABSOLUTE AUTO 0.45 K/mm3 (0.00-0.10); IMMATURE GRAN PERCENT AUTO 4 % (0-1); LYMPHOCYTES ABSOLUTE AUTO 2.68 K/mm3 (0.84-5.20); LYMPHOCYTES PERCENT AUTO 23 % (21-46); MONOCYTES ABSOLUTE AUTO 0.71 K/mm3 (0.16-1.47); MONOCYTES PERCENT AUTO 6 % (4-13); Mean Corpuscular HGB 28.4 pg (26.0-34.0); Mean Corpuscular HGB Conc 30.8 g/dL (31.5-36.5); Mean Corpuscular Volume 92 fL (80-100); Mean Platelet Volume 8.6 fL (9.1-12.4); NEUTROPHILS ABSOLUTE AUTO 6.81 K/mm3 (1.96-9.15); NEUTROPHILS PERCENT AUTO 58 % (41-73); Platelet Count 453 K/mm3 (150-400); RDW Coefficient Variation 15.4 % (11.7-14.2); RDW Standard Deviation 50.8 fL (35.1-46.3); White Blood Cell Count 11.71 K/mm3 (4.00-11.30)
[2019-03-18 05:44] LABS: Anion Gap 5 mmol/L (6-16); Blood Urea Nitrogen 13 mg/dL (8-24); Bun/Creatinine Ratio 19.8 (12.0-20.0); CO2, Blood 26 mmol/L (21-32); Calcium, Blood 8.7 mg/dL (8.5-10.1); Chloride, Blood 106 mmol/L (98-108); Creatinine, Blood 0.66 mg/dL (0.60-1.20); Glomerular Filtration Rate >60 (60-); Glucose, Blood 140 mg/dL (70-99); Sodium, Blood 137 mmol/L (136-145)
--- NOTE | 2019-03-18 06:39 | NUR ---
SHIFT SUMMARY PT C/O PAIN IN LEGS X2 AND MEDICATED PER EMAR. HE SLEPT IN RECLINER ALL NIGHT DIDN'T WANT TO GET INTO BED. REFUSED NYSTATIN POWDER. SBA STOOD UP C ASSIST TO USE URINAL. HE WAS ABLE TO SLEEP OFF AND ON T/O NIGHT. CALL LIGHT IN REACH.
--- NOTE | 2019-03-18 15:43 | NUR ---
Follow up discussion with local personal injury attorney facilitated. I submitted a request to have her organize and file a petition with the court for a guardianship and conservator appointment for the principal on behalf of the hospital.
--- NOTE | 2019-03-18 18:01 | NUR ---
SHIFT SUMMARY NO CHANGES IN ASSESSMENT AT THIS TIME. VSS. PT L FOOT BANDAGES CHANGED DUE TO SATURATION. PT ALLOWED FOR SACRAL BANDAGES TO BE CHANGED THIS SHIFT. WILL CONTINUE TO MONITOR UNTIL TURNOVER IS COMPLETE.
[2019-03-19 05:02] LABS: BASOPHILS ABSOLUTE AUTO 0.18 K/mm3 (0.00-0.23); BASOPHILS PERCENT AUTO 2 % (0-2); EOSINOPHILS ABSOLUTE AUTO 0.74 K/mm3 (0.00-0.68); EOSINOPHILS PERCENT AUTO 7 % (0-6); Hematocrit 35.2 % (37.0-53.0); IMMATURE GRAN ABSOLUTE AUTO 0.35 K/mm3 (0.00-0.10); IMMATURE GRAN PERCENT AUTO 3 % (0-1); LYMPHOCYTES ABSOLUTE AUTO 2.62 K/mm3 (0.84-5.20); LYMPHOCYTES PERCENT AUTO 25 % (21-46); MONOCYTES ABSOLUTE AUTO 0.62 K/mm3 (0.16-1.47); MONOCYTES PERCENT AUTO 6 % (4-13); Mean Corpuscular HGB 28.7 pg (26.0-34.0); Mean Corpuscular HGB Conc 31.3 g/dL (31.5-36.5); Mean Corpuscular Volume 92 fL (80-100); Mean Platelet Volume 8.4 fL (9.1-12.4); NEUTROPHILS ABSOLUTE AUTO 6.12 K/mm3 (1.96-9.15); NEUTROPHILS PERCENT AUTO 58 % (41-73); Platelet Count 461 K/mm3 (150-400); RDW Coefficient Variation 15.8 % (11.7-14.2); RDW Standard Deviation 50.8 fL (35.1-46.3); Red Blood Cell Count 3.83 M/mm3 (4.30-5.90); White Blood Cell Count 10.63 K/mm3 (4.00-11.30)
--- NOTE | 2019-03-19 15:54 | NUR ---
Pt visit this afternoon. Pt sitting in recliner chair and denies pain at this time. Pt expresses appreciation of visit but politely request to vist at a later time so he can finish reading his book. Spoke with bedside nurse Luly and she reports no concerns at this time.
--- NOTE | 2019-03-19 16:13 | NUR ---
Elbert was alert, warm and communicative. He reports his sister has remained attentive during his hospitalization, the care has received has been good, and that he has not outstanding issues or unresolved concerns. In our conversation Elbert strongly intimated that he would contest guardianship services if we decided to pursue them for his placement or treatment. I reported the content of this interaction to the mergers and acquisitions attorney who informed me that under such circumstances the hospital would need to be willing to take the principal to court in order to proceed. The mergers and acquisitions attorney further reports that she believes it would be beneficial for us to work with a running specialist with more experience rather than utilizing her legal services. With my permission she is transfering the case information to an alternate mergers and acquisitions attorney who will contact me tomorrow for additional discussion, review and planning.
--- NOTE | 2019-03-19 18:30 | NUR ---
PT AOX4 AND COOPERATIVE OF ALL CARE. PT HAS REFUSED TO GO TO BED AND HAS STAYED UP IN CHAIR. DENIES PAIN BANDAGES WERE CHANGED RIGHT BEFORE SHIFT STARTED. WILL CONTINUE TO MONITOR NO DISTRESS NOTED.
[2019-03-20 05:28] LABS: BASOPHILS ABSOLUTE AUTO 0.23 K/mm3 (0.00-0.23); BASOPHILS PERCENT AUTO 2 % (0-2); EOSINOPHILS ABSOLUTE AUTO 0.76 K/mm3 (0.00-0.68); EOSINOPHILS PERCENT AUTO 7 % (0-6); Hematocrit 36.1 % (37.0-53.0); Hemoglobin 11.2 g/dL (13.5-17.5); IMMATURE GRAN ABSOLUTE AUTO 0.25 K/mm3 (0.00-0.10); IMMATURE GRAN PERCENT AUTO 2 % (0-1); LYMPHOCYTES ABSOLUTE AUTO 2.52 K/mm3 (0.84-5.20); LYMPHOCYTES PERCENT AUTO 25 % (21-46); MONOCYTES ABSOLUTE AUTO 0.54 K/mm3 (0.16-1.47); MONOCYTES PERCENT AUTO 5 % (4-13); Mean Corpuscular HGB 28.6 pg (26.0-34.0); Mean Corpuscular Volume 92 fL (80-100); Mean Platelet Volume 8.6 fL (9.1-12.4); NEUTROPHILS PERCENT AUTO 58 % (41-73); Platelet Count 466 K/mm3 (150-400); RDW Coefficient Variation 16.1 % (11.7-14.2); RDW Standard Deviation 52.3 fL (35.1-46.3); Red Blood Cell Count 3.92 M/mm3 (4.30-5.90)
--- NOTE | 2019-03-20 06:43 | NUR ---
SHIFT SUMMARY NO ACUTE CHANGES OVERNIGHT. PATIENT 2 PERSON MAC ASSIST TO BSC. PATIENT SLEPT IN CHAIR AT BEDSIDE THROUGHOUT NIGHT.
--- NOTE | 2019-03-20 08:55 | NUR ---
PATIENT WOULD NOT LET RN PUT NYSTATIN POWDER ON TO GROIN AREA. GIVEN WET CLOTH TO CLEAN AND A DRY ONE TO DRY AREA. WHEN ASKED IF CAN SEE REDNESS, PATIENT TAKES BLANKET DOWN FOR ABOUT 2 SECONDS THEN COVERS AREA AND SAYS "DON'T TOUCH."
--- NOTE | 2019-03-20 18:47 | NUR ---
ALERT. UNLABORED RESPIRATIONS. ALL DRESSINGS CHANGED. DELUSIONS. "Candelaria WELLS IS HIS DAUGHTER." REFUSES SOME MEDS. "LOVENOX IS RELATED TO ANTHRAX." SITS IN RECLINER ALL SHIFT. AMBULATORY W/WALKER AND ONE PERSON ASSIST TO BSC. REPORT TO NIGHT RN.
--- NOTE | 2019-03-21 07:19 | NUR ---
SHIFT SUMMARY NO ACUTE EVENTS OVERNIGHT. PATIENT SLEPT IN CHAIR THROUGHOUT NIGHT AND REFUSED TO GET INTO BED. PATIENT PLEASANT TO STAFF.
[2019-03-21 07:54] LABS: BASOPHILS ABSOLUTE AUTO 0.19 K/mm3 (0.00-0.23); BASOPHILS PERCENT AUTO 2 % (0-2); EOSINOPHILS ABSOLUTE AUTO 0.77 K/mm3 (0.00-0.68); EOSINOPHILS PERCENT AUTO 8 % (0-6); Hematocrit 34.4 % (37.0-53.0); Hemoglobin 10.8 g/dL (13.5-17.5); IMMATURE GRAN PERCENT AUTO 2 % (0-1); LYMPHOCYTES PERCENT AUTO 25 % (21-46); MONOCYTES ABSOLUTE AUTO 0.56 K/mm3 (0.16-1.47); MONOCYTES PERCENT AUTO 6 % (4-13); Mean Corpuscular HGB 28.5 pg (26.0-34.0); Mean Corpuscular HGB Conc 31.4 g/dL (31.5-36.5); Mean Corpuscular Volume 91 fL (80-100); Mean Platelet Volume 8.7 fL (9.1-12.4); NEUTROPHILS PERCENT AUTO 58 % (41-73); Platelet Count 452 K/mm3 (150-400); RDW Coefficient Variation 16.3 % (11.7-14.2); RDW Standard Deviation 53.3 fL (35.1-46.3); Red Blood Cell Count 3.79 M/mm3 (4.30-5.90); White Blood Cell Count 9.72 K/mm3 (4.00-11.30)
[2019-03-21 08:08] LABS: Anion Gap 7 mmol/L (6-16); Blood Urea Nitrogen 17 mg/dL (8-24); Bun/Creatinine Ratio 25.3 (12.0-20.0); CO2, Blood 25 mmol/L (21-32); Calcium, Blood 8.9 mg/dL (8.5-10.1); Chloride, Blood 105 mmol/L (98-108); Creatinine, Blood 0.67 mg/dL (0.60-1.20); Glomerular Filtration Rate >60 (60-); Glucose, Blood 131 mg/dL (70-99); Potassium, Blood 3.9 mmol/L (3.5-5.5); Sodium, Blood 137 mmol/L (136-145)
--- NOTE | 2019-03-21 11:38 | NUR ---
Elbert was alert, friendly and social. No concerns were reported or identified. He responded favorably to non-intrusive conversation, humor and life review questions. He opined on his hobbies, interests, beliefs and history with diversions into grandiosity and hyperbole noted. He thanked me for the attention and encouragement. Guardianship Update: Teleconference facilitated with local Steel Layer Steve Tavarez regarding the prospect of securing a fudiciary on behalf of the principal. The strategy currently is to have his guardianship specialist conduct an onsite audit to ascertain the degree to which Elbert is incapable of making decisions, and consequently discovering what level of decisional support would be in his best interest. The fiduciarys name is Taina King.
--- NOTE | 2019-03-21 19:33 | NUR ---
SHIFT SUMMARY- PT BANDAGES ARE C/D/I PT DUE FOR WOUND CARE TOMORROW DURING DAY SHIFT. PT PLEASENT, STILL SPEAKS NONSENSICALLY OCCASSIONALLYAND REFUSES LOEVENOX BECAUSE HE THINKS IT IS RELATED TO ANTHRAX. OTHER THAN THAT THE DAY HAS BEEN UN EVENTFULL. PT HAS BEEN UP IN THE CHAIR ALL SHIFT, DENIES THE NEED FOR PAIN MEDICATION, NO INSULIN COVERAGE NEEDED, IV SL. PT DID REQUEST TO HAVE A PARTIAL SPOUNGE BATH THIS EVENING, PASSED ON IN REPORT TO NIGHT FELIPE BARRAZA.
--- NOTE | 2019-03-22 05:15 | NUR ---
SHIFT SUMMARY: 64 Y/O MALE RESTED IN BEDSIDE CHAIR ALL SHIFT WITH BILATERAL FEET IN DEPENDENT POSITION, REFUSED TO SLEEP IN CHAIR OR TO ELEVATE FEET, BILATERAL LOWER FEET DRESSINGS DRY AND INTACT; DENIES PAIN OR NAUSEA; ALERT AND ORIENTED X 2, PTS THOUGHT PROCESS DISORGANIZED AT TIMES WITH FLIGHT OF IDEAS NOTED; CALL LIGHT AT SIDE.
[2019-03-22 07:07] LABS: BASOPHILS ABSOLUTE AUTO 0.17 K/mm3 (0.00-0.23); BASOPHILS PERCENT AUTO 2 % (0-2); EOSINOPHILS ABSOLUTE AUTO 0.69 K/mm3 (0.00-0.68); EOSINOPHILS PERCENT AUTO 7 % (0-6); Hematocrit 35.2 % (37.0-53.0); Hemoglobin 11.1 g/dL (13.5-17.5); IMMATURE GRAN ABSOLUTE AUTO 0.19 K/mm3 (0.00-0.10); IMMATURE GRAN PERCENT AUTO 2 % (0-1); LYMPHOCYTES ABSOLUTE AUTO 2.09 K/mm3 (0.84-5.20); LYMPHOCYTES PERCENT AUTO 21 % (21-46); MONOCYTES ABSOLUTE AUTO 0.63 K/mm3 (0.16-1.47); MONOCYTES PERCENT AUTO 6 % (4-13); Mean Corpuscular HGB 28.9 pg (26.0-34.0); Mean Corpuscular HGB Conc 31.5 g/dL (31.5-36.5); Mean Corpuscular Volume 92 fL (80-100); Mean Platelet Volume 8.6 fL (9.1-12.4); NEUTROPHILS ABSOLUTE AUTO 6.27 K/mm3 (1.96-9.15); NEUTROPHILS PERCENT AUTO 62 % (41-73); Platelet Count 460 K/mm3 (150-400); RDW Coefficient Variation 16.2 % (11.7-14.2); RDW Standard Deviation 53.5 fL (35.1-46.3); Red Blood Cell Count 3.84 M/mm3 (4.30-5.90); White Blood Cell Count 10.04 K/mm3 (4.00-11.30)
--- NOTE | 2019-03-22 07:44 | NUR ---
ASSUMED CARE OF PT- REPORT RECIEVED FROM NIGHT FELIPE BARRAZA. PT SLEEPING AT CHANGE OF SHIFT, DUE FOR BANDAGE CHANGE TODAY. PT CAN BE RESISTIVE TO WOUND CARE. PT OFTEN SPEAKS NONSENSICALLY AND WITH A FLIGHT OF IDEAS, YESTERDAY THIS SEEMED TO BE LESS THAN PREVIOUS SHIFTS, PER REPORT IT WAS PRESENT LAST NIGHT. PT SITTING UP IN THE RECLINER WITH THE CALL LIGHT IN REACH. WILL ASSESS SHORTLY.
--- NOTE | 2019-03-22 19:34 | NUR ---
SHIFT SUMMARY- PT HAS HAD NO ACUTE CHANGES T/O THE SHIFT. WOUND CARE AND BANDAGE CHANGES WERE COMPLETED ON BILATERAL LOWER EXTREMITIES. NO C/O PAIN MEDICATED WITH TYLENOL PRIOR TO WOUND CARE. PT UP IN THE CHAIR CALL LIGHT IN REACH.
[2019-03-23 06:14] LABS: BASOPHILS ABSOLUTE AUTO 0.14 K/mm3 (0.00-0.23); BASOPHILS PERCENT AUTO 2 % (0-2); EOSINOPHILS ABSOLUTE AUTO 0.62 K/mm3 (0.00-0.68); EOSINOPHILS PERCENT AUTO 7 % (0-6); Hematocrit 33.9 % (37.0-53.0); Hemoglobin 10.8 g/dL (13.5-17.5); IMMATURE GRAN ABSOLUTE AUTO 0.13 K/mm3 (0.00-0.10); IMMATURE GRAN PERCENT AUTO 2 % (0-1); LYMPHOCYTES ABSOLUTE AUTO 2.12 K/mm3 (0.84-5.20); LYMPHOCYTES PERCENT AUTO 25 % (21-46); MONOCYTES ABSOLUTE AUTO 0.59 K/mm3 (0.16-1.47); MONOCYTES PERCENT AUTO 7 % (4-13); Mean Corpuscular HGB 29.2 pg (26.0-34.0); Mean Corpuscular HGB Conc 31.9 g/dL (31.5-36.5); Mean Corpuscular Volume 92 fL (80-100); Mean Platelet Volume 8.8 fL (9.1-12.4); NEUTROPHILS ABSOLUTE AUTO 4.98 K/mm3 (1.96-9.15); NEUTROPHILS PERCENT AUTO 58 % (41-73); Platelet Count 444 K/mm3 (150-400); RDW Coefficient Variation 16.4 % (11.7-14.2); RDW Standard Deviation 54.7 fL (35.1-46.3); White Blood Cell Count 8.58 K/mm3 (4.00-11.30)
--- NOTE | 2019-03-23 17:04 | NUR ---
CALLED DR LANDERS- PT HAS IV ACCESS THAT IS NOT BEING USED; HOWEVER PT BP TRENDS HAVE BEEN LOW OVER THE PAST THREE DAYS, METOPROLOL HAS BEEN HELD FOR THE PAST TWO DAYS. PER DR LANDERS, LEAVE THE IV IN PLACE FOR NOW AND HE WILL DC THE METOPROLOL.
--- NOTE | 2019-03-23 17:12 | NUR ---
SHIFT SUMMARY- PT HAS HAD NO ACUTE CHANGES T/O THE SHIFT. WOUND CARE WAS PERFORMED YESTERDAY AND IS BEING DONE EVERY OTHER DAY, DUE FOR WOUND CARE TOMORROW. PT HAS BEEN SLEEPING IN HIS RECLINER T/O THE SHIFT. PT BP RUNNING LOWER TODAY DR IS AWARE. PT HAS IV ACCESS PER DR MAINTAIN IV ACCESS AT THIS TIME. PT STILL REFUSING LOVENOX. IS AWARE.
--- NOTE | 2019-03-24 04:01 | NUR ---
PT continues to have wound care for bilat le multple vascular uncers. No maggots noticed on medical floor dressing changes. PT up to bedside recliner and compliant with sleeping in bed tonight due to pressure ulcer risk. He has been deemed incompitent to make decisions and Psych recommends guardianship. PT has poor insight into condition. Pleasant and cooperative able to use call christian appropriately. Frequently calls to request staff give him a backrub. Decreased foul odor which was very strong on admission. Pt says he was living with his Sister and driving her around. PT unable to ambulate due to bilat LE wounds. Up to bedside commode with assist and FWW. Denies acute pain.
--- NOTE | 2019-03-24 08:50 | NUR ---
Guardianship assessment update. Certified fudiciary specialist Taina King conducted her site visit with the principal. 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 In her conversation with Elbert, the principal stated that he might change his mind about a bi-lateral amputation when it becomes emergent i.e. a matter of life or limb. She believes with heavy case management involvement to connect him with local community resources, Elbert should be able to navigate at home safely and healthily.
--- NOTE | 2019-03-24 17:09 | NUR ---
SHIFT SUMMARY- PT C/O HEADACHE THIS AM. MEDS GIVEN PER EMAR. PT DENIES N/V. DENIES SOB. RESP E/U ON RA. NOTIFIED DR. LANDERS PT DOES NOT HAVE IV AND IS NOT RECIEVING ANY IV MEDS. DR. LANDERS SAID OK TO PUT IN ORDER FOR NO IV ACCESS NEEDED. PT'S SISTER IN TO VISIT TODAY. PT REQUESTED WALLET FROM [employer]. SECURITY BROUGHT WALLET TO PT. PT SENT WALLET HOME WITH SISTER. 1 ASSIST WITH FWW TO BSC/CHAIR. NO OTHER SIGNIFICANT CHANGES THIS SHIFT.
--- NOTE | 2019-03-25 06:04 | NUR ---
SHIFT SUMMARY NO ACUTE CHANGES TONIGHT. IS A&O X 4, BEHAVING NORMALLY. DRESSING CHANGES TO BLE COMPLETE AT START OF SHIFT. PT FREQUENTLY ASKS FEMALE STAFF FOR "BACK RUBS AND SCRATCHES". CBG AT 204 TONIGHT, HUMALOG PER MED SS. DENIES PAIN OR DISCOMFORT. LS CLEAR, RESP E/U ON RA. NO OTHER CHANGES TO REPORT, WILL CONT TO MONITOR AND PROVIDE CARE UNTIL PRESUMED BY ONCOMING RN.
--- NOTE | 2019-03-25 09:00 | NUR ---
PT PLEASANT COOP FOLLOWS DIRECTIONS. SCHIZZOPHRENIA. GRANDIOSE IDEAS THAT ALL COUNTRY POP AND ROCK STARS ARE RELATED TO HIM. HE ADMITS TO PLAYING GREAT GUITAR. FLIGHTS OF IDEAS. H/R REG, NO MURMER NOTED. LUNGS CLEAR, RESP EASY UNLABORED. ON R.A. BT X4 LAST BM YEST. VOIDS URINAL. PT IN CHAIR AT THIS TIME. CHAIR ALARM ON FOR SAFETY,.CALL LITE IN REACH, CALLS APPROP
--- NOTE | 2019-03-25 17:10 | NUR ---
Elbert was alert,communicative and amicable. No signs of pain, distress or anxiety. I provided social companionship, encouragement and suportive listening. We spoke briefly about his resistance to surgical intervention, takled about his ambulation and transfer challenges, and discussed the need for home health services and a hospital bed for his impending discharge. Elbert is in agreement with this plan and expresses no reservations.
--- NOTE | 2019-03-25 18:41 | NUR ---
PT PLEASANTLY CONFUSED TODAY. GRANDIOSE HALUCINATIONS TODAY. STATES IS GRANDFATHER, FATHER, UNCLE, ETC FO EVERY ROCK, COUNTRY, POP STAR AT THIS TIME. TALKS ENDLESSLY TO THIS REGARD. PT PENDING EXPECTED D/C TOMORROW WITH SOME NEEDS AT HOME. CARE PLANNERS REVIEWING. NO OTHER CONCERNS AT THIS TIME. BED IN LOW POSITION, CALL LITE IN REACH, CALLS APPROP
--- NOTE | 2019-03-26 07:39 | NUR ---
SHIFT SUMMARY: PREETI HAD A VERY UNEVENTFUL NIGHT. HE WAS UP TO THE CHAIR FOR A SHORT PERIOD OF TIME, THEN TRANSFERRED TO BED, WHERE HE FELL TO SLEEP. SLEPT THROUGHOUT THE NIGHT EXCEPT FOR BATHROOM NEEDS AND VS. VS STAYED WNL, MEDS WERE GIVEN PER EMAR. NO ACUTE CHANGES WERE NOTED. GAVE REPORT TO DAY SHIFT RN.
[2019-03-26] MEDS ORDERED: ACET325 PO (12:40)
[2019-03-26] MEDS ORDERED: Florastor250 MG PO (12:41)
[2019-03-26] MEDS ORDERED: Augmentin 875-1 EACH PO (12:41)
[2019-03-26] MEDS ORDERED: METF500 PO (12:41)
--- NOTE | 2019-03-26 14:57 | NUR ---
SPOKE TO PT ABOUT WOUND CLINIC, PT REPORTS HE DOES NOT WANT TO COME TO WOUND CLINIC AND WANTS THEM TO COME TO HIM ONLY AND HE WILL NOT COME IN TO GET WOUNDS DONE. I DID NOTIFY PT THAT I MADE A F/U WITH PCP AND DR MARTÍNEZ OFFICE. SCRIPTS FAXED TO [facility].
--- NOTE | 2019-03-26 14:58 | NUR ---
WOUND CARE COMPLETED TO BLE. SEE NEW PHOTOS IN CHART.
--- NOTE | 2019-03-26 15:45 | NUR ---
Elbert was alert, friendly and talkative. No signs of distress or pain. Senior Project Accountant Jia Zavala. and I explained that he would be discharged home today with a hospital bed provided and a home health referral for services. Jia Zavala is also following up with on a life alert system. Rascon sister has also indicated interest in improving her wound management and dressing change skills. My understanding is that can offer that coaching to her. Elbert and I talked about family, hobbies and technology. His content was legible and cogent with some sprinkled in fiction and embellishment. He thanked me for the visit and said he's enjoyed our conversations.
--- NOTE | 2019-03-26 17:48 | NUR ---
DISCHARGE INSTRUCTIONS REVIEWED WITH PT. ANTIBIOTIC GIVEN EARLY DUE TO NOT BEING ABLE TO SENIOR SUSTAINABILITY CONSULTANT FROM [facility]. SISTER STATES SHE WILL SENIOR SUSTAINABILITY CONSULTANT TOMORROW AM. AMEDYSIS IN TO SEE PT WITH DRYWALL APPLICATION SUPERVISOR LAURIE. F/U APPT'S MADE. PT REFUSES WOUND CLINIC F/U. WOUND CARE COMPLETED AND PHOTOS TAKEN. PT AWAITING W/C TRANSPORT VIA [facility].
--- NOTE | 2019-03-26 18:32 | NUR ---
PT DC'D HOME VIA [facility] W/C AT 1832.
== END 2019-03-26 18:30 | disposition home health service (06) | DRG 299 ==
LOC: ER 11:00 → PCU 14:57 → MEDS 03-11 21:43
PROVIDERS: Emergency Medicine; Family Medicine; Internal Medicine Infectious Disease; ADMIT Family Medicine
DX: E11.52 Type 2 diabetes mellitus with diabetic peripheral angiopathy with gangrene (principal); A48.0 Gas gangrene; M86.9 Osteomyelitis, unspecified; L03.116 Cellulitis of left lower limb; L03.115 Cellulitis of right lower limb; E11.69 Type 2 diabetes mellitus with other specified complication; E11.621 Type 2 diabetes mellitus with foot ulcer; L97.523 Non-pressure chronic ulcer of other part of left foot with necrosis of muscle; K21.9 Gastro-esophageal reflux disease without esophagitis; I48.91 Unspecified atrial fibrillation; F20.9 Schizophrenia, unspecified; J45.909 Unspecified asthma, uncomplicated; E78.5 Hyperlipidemia, unspecified; D64.9 Anemia, unspecified; D47.3 Essential (hemorrhagic) thrombocythemia
CPT/HCPCS: 36415; 71045; 73590; 73630; 80048; 80069; 80202; 82550; 82553; 82947; 83605; 84484; 85025; 85651; 86140; 87040; 87070; 87075; 87147; 87205; 93005; 93010; 96365; 96366; 96367; 99285-25; A9270; A9270-GY; J0692; J2405; J2543; J3010; J3370; J7030; J7040; J7050; J7120

== ENCOUNTER 2019-04-29 14:45 | Observation (INO) | payer MEDICARE, OTHER ==
[~2019-04-29] VITALS: Ht 182.9 cm; Wt 132.2 kg
[~2019-04-29 14:45] MED LIST changes: +Augmentin 875-1 EACH PO; +Florastor250 MG PO
[2019-04-29 16:06] LABS: BASOPHILS ABSOLUTE AUTO 0.14 K/mm3 (0.00-0.23); BASOPHILS PERCENT AUTO 1 % (0-2); EOSINOPHILS ABSOLUTE AUTO 0.07 K/mm3 (0.00-0.68); EOSINOPHILS PERCENT AUTO 1 % (0-6); Hematocrit 38.1 % (37.0-53.0); Hemoglobin 12.4 g/dL (13.5-17.5); IMMATURE GRAN ABSOLUTE AUTO 0.39 K/mm3 (0.00-0.10); IMMATURE GRAN PERCENT AUTO 3 % (0-1); LYMPHOCYTES ABSOLUTE AUTO 2.74 K/mm3 (0.84-5.20); LYMPHOCYTES PERCENT AUTO 19 % (21-46); MONOCYTES ABSOLUTE AUTO 0.66 K/mm3 (0.16-1.47); MONOCYTES PERCENT AUTO 5 % (4-13); Mean Corpuscular HGB 29.2 pg (26.0-34.0); Mean Corpuscular HGB Conc 32.5 g/dL (31.5-36.5); Mean Corpuscular Volume 90 fL (80-100); Mean Platelet Volume 9.2 fL (9.1-12.4); NEUTROPHILS ABSOLUTE AUTO 10.12 K/mm3 (1.96-9.15); NEUTROPHILS PERCENT AUTO 72 % (41-73); NRBC ABSOLUTE 0.02 K/mm3 (0.00-0.02); NRBC Auto 0.1 /100 WBC (0.0-0.2); Platelet Count 517 K/mm3 (150-400); RDW Coefficient Variation 14.5 % (11.7-14.2); RDW Standard Deviation 47.2 fL (35.1-46.3); Red Blood Cell Count 4.24 M/mm3 (4.30-5.90); White Blood Cell Count 14.12 K/mm3 (4.00-11.30)
[2019-04-29 16:20] LABS: Alanine Aminotransfer (ALT/SGP 11 U/L (12-78); Albumin, Blood 2.4 g/dL (3.4-5.0); Albumin/Globulin Ratio 0.4 (0.8-1.8); Alk Phos 166 U/L (50-136); Anion Gap 9 mmol/L (6-16); Aspartate Aminotrans (AST/SGOT 10 U/L (12-37); Bilirubin, Total 0.8 mg/dL (0.1-1.0); Blood Urea Nitrogen 13 mg/dL (8-24); Bun/Creatinine Ratio 18.4 (12.0-20.0); CO2, Blood 21 mmol/L (21-32); Calcium, Blood 8.3 mg/dL (8.5-10.1); Chloride, Blood 104 mmol/L (98-108); Creatinine, Blood 0.71 mg/dL (0.60-1.20); Globulin, Blood 5.6 g/dL (2.2-4.0); Glomerular Filtration Rate >60 (60-); Glucose, Blood 208 mg/dL (70-99); Potassium, Blood 4.1 mmol/L (3.5-5.5); Sodium, Blood 134 mmol/L (136-145)
[2019-04-29] MEDS ORDERED: Loratadine10 MG PO (19:53)
[2019-04-29] MEDS ORDERED: CENTRUM SILVER1 EAC2 PO (21:34)
[2019-04-30 05:05] LABS: BASOPHILS ABSOLUTE AUTO 0.17 K/mm3 (0.00-0.23); BASOPHILS PERCENT AUTO 2 % (0-2); EOSINOPHILS ABSOLUTE AUTO 0.13 K/mm3 (0.00-0.68); EOSINOPHILS PERCENT AUTO 1 % (0-6); Hematocrit 35.4 % (37.0-53.0); Hemoglobin 11.2 g/dL (13.5-17.5); IMMATURE GRAN ABSOLUTE AUTO 0.31 K/mm3 (0.00-0.10); IMMATURE GRAN PERCENT AUTO 3 % (0-1); LYMPHOCYTES ABSOLUTE AUTO 2.42 K/mm3 (0.84-5.20); LYMPHOCYTES PERCENT AUTO 21 % (21-46); MONOCYTES PERCENT AUTO 5 % (4-13); Mean Corpuscular HGB 28.1 pg (26.0-34.0); Mean Corpuscular HGB Conc 31.6 g/dL (31.5-36.5); Mean Corpuscular Volume 89 fL (80-100); Mean Platelet Volume 9.2 fL (9.1-12.4); NEUTROPHILS ABSOLUTE AUTO 7.86 K/mm3 (1.96-9.15); NEUTROPHILS PERCENT AUTO 68 % (41-73); Platelet Count 407 K/mm3 (150-400); RDW Coefficient Variation 14.6 % (11.7-14.2); RDW Standard Deviation 46.4 fL (35.1-46.3); Red Blood Cell Count 3.98 M/mm3 (4.30-5.90); White Blood Cell Count 11.49 K/mm3 (4.00-11.30)
[2019-04-30 05:28] LABS: Anion Gap 9 mmol/L (6-16); Blood Urea Nitrogen 11 mg/dL (8-24); CO2, Blood 23 mmol/L (21-32); Chloride, Blood 105 mmol/L (98-108); Creatinine, Blood 0.73 mg/dL (0.60-1.20); Glomerular Filtration Rate >60 (60-); Glucose, Blood 179 mg/dL (70-99); Potassium, Blood 3.9 mmol/L (3.5-5.5); Sodium, Blood 137 mmol/L (136-145)
--- NOTE | 2019-04-30 06:02 | NUR ---
SHIFT SUMMARY PT ARRIVED TO ROOM APPROX 2129. LIFTING ASSISTANCE NEEDED TO GET FROM STRETCHER TO BED. WOUNDS ON LEGS WITH VERY FOUL SMELL AND MODERATE DRAINAGE NOTED. FLUSHED MANY WORMS/MAGGOTS OUT WITH WOUND CLEANSER AND SALINE POSSIBLE AND DRESSED WITH EXUDRY AND KERLEX. USING URINAL IN BED. PETECHIAE LOOKING DOTS/RASH NOTED T/O HIS TRUNK AND EXTREMITIES. HE WAS ABLE TO SLEEP T/O NIGHT. CALL LIGHT IN REACH.
--- NOTE | 2019-04-30 08:00 | NUR ---
PT PLEASANT, EXTREMELY METICULOUS DETAILED. DENIES PAIN AT THIS TIME. FEET WRAPPED LEFT FOOT HAS MAGGOTS T/O OPEN AREAS. PT ADAMENTLY STATES WILL HEAL WITH ABX. REFUSES SURGICAL INTERVENTION. TRIED TO EXPLAIN HAS CONSULT FOR ORTHO. REFUSES. SPOKE TO DR KNIGHT, HE STATES PT REFUSING AND UNDERSTANDS. H/R REG, NO MURMER NOTED. PER TELE, AFIB AVG 122. LUNGS CLEAR, RESP EASY, UNLABORED. ON R.A/ BT X4. LAST BM YEST. VOIDS URINAL. IS TO BE OFF FEET. FOLLOWS COMMANDS. SCHIZZOPHRENIA, FLIGHTS OF IDEAS, GRANDIOSE IDEAS. BED IN LOW POSITION, CALL LITE IN REACH, BED ALARM ON FOR SAFETY
[2019-04-30] MEDS ORDERED: Florastor250 MG PO (11:24)
[2019-04-30] MEDS ORDERED: Augmentin 875-1 EACH PO (11:25)
[2019-04-30] MEDS ORDERED: METO25ER PO (11:25)
--- NOTE | 2019-04-30 12:05 | NUR ---
PT DISCHARGE REVIEWED WITH PT . HE STATES CLEARLY NOT WANTING ANY SURGERY ON FOOT. SHOWED HIM CHART PIX OF HIS FOOT. HE FIRMLY STATES THINKS ABX WILL CURE. DISCUSSED MAGGOTS IN FOOT AND NEED FOR SURGICAL INTERVENTION. HE REFUSES. PT STATES SISTER TO COME TO PICK HIM UP SOON. DISCHARGE REVIEWED WITH PT. STATES UNDERSTANDING OF MEDS AND INSTRUCTIONS. FOLLOWUP WITH PCP VERIFIED. PT VERBALIZED UNDERSTANDS.
--- NOTE | 2019-04-30 12:40 | NUR ---
PT STATES SISTER TO COME PICK HIM UP. CALLED SISTER, NO ANS.
--- NOTE | 2019-04-30 14:16 | NUR ---
TELE REMOVED. IV REMOVED INTACT, PT TRANSPORTED TO DOOR BY NICK AND AT 1345
== END 2019-04-30 13:49 | disposition home health service (06) ==
LOC: ER 14:45 → MEDS 14:46 → ER 20:20 → MEDS 20:20 → ENPENDDIS 04-30 11:39 → MEDS 04-30 13:49
PROVIDERS: Physician Assistant; ADMIT Family Medicine
DX: A41.9 Sepsis, unspecified organism (principal); L03.115 Cellulitis of right lower limb; L03.116 Cellulitis of left lower limb; E11.69 Type 2 diabetes mellitus with other specified complication; M86.671 Other chronic osteomyelitis, right ankle and foot; E11.621 Type 2 diabetes mellitus with foot ulcer; L97.519 Non-pressure chronic ulcer of other part of right foot with unspecified severity; L97.529 Non-pressure chronic ulcer of other part of left foot with unspecified severity; I48.91 Unspecified atrial fibrillation; E87.1 Hypo-osmolality and hyponatremia; D72.829 Elevated white blood cell count, unspecified; D47.3 Essential (hemorrhagic) thrombocythemia; I11.0 Hypertensive heart disease with heart failure; Z91.14 Patient's other noncompliance with medication regimen; I50.40 Unspecified combined systolic (congestive) and diastolic (congestive) heart failure; Z88.0 Allergy status to penicillin
CPT/HCPCS: 36415; 73620; 80048; 80053; 82947; 83605; 85025; 85651; 86140; 87040; 87070; 87075; 87147; 87205; 96365; 96366; 96375; 99284-25; G0378; J2543; J3370; J7050

== ENCOUNTER 2019-05-01 15:27 | Emergency (ER) | payer MEDICARE, OTHER ==
[~2019-05-01] VITALS: Ht 185.4 cm; Wt 97.5 kg
[~2019-05-01 15:27] MED LIST changes: +CENTRUM SILVER1 EAC2 PO; +Loratadine10 MG PO
== END 2019-05-01 19:23 | disposition home or self-care (01) ==
LOC: ER 15:27
DX: L03.116 Cellulitis of left lower limb (principal); M86.60 Other chronic osteomyelitis, unspecified site; L30.8 Other specified dermatitis; I87.8 Other specified disorders of veins; E11.9 Type 2 diabetes mellitus without complications; I10 Essential (primary) hypertension; Z79.899 Other long term (current) drug therapy
CPT/HCPCS: 36415; 96365; 99283-25; J2543

== ENCOUNTER 2019-05-09 16:33 | Inpatient (IN) | payer MEDICARE, OTHER ==
[~2019-05-09] VITALS: Ht 182.9 cm; Wt 134.0 kg
[2019-05-09 21:28] LABS: BASOPHILS ABSOLUTE AUTO 0.09 K/mm3 (0.00-0.23); BASOPHILS PERCENT AUTO 1 % (0-2); EOSINOPHILS ABSOLUTE AUTO 0.09 K/mm3 (0.00-0.68); EOSINOPHILS PERCENT AUTO 1 % (0-6); Hematocrit 41.5 % (37.0-53.0); IMMATURE GRAN ABSOLUTE AUTO 0.12 K/mm3 (0.00-0.10); IMMATURE GRAN PERCENT AUTO 1 % (0-1); LYMPHOCYTES ABSOLUTE AUTO 2.56 K/mm3 (0.84-5.20); LYMPHOCYTES PERCENT AUTO 17 % (21-46); MONOCYTES ABSOLUTE AUTO 0.89 K/mm3 (0.16-1.47); MONOCYTES PERCENT AUTO 6 % (4-13); Mean Corpuscular HGB Conc 31.3 g/dL (31.5-36.5); Mean Platelet Volume 9.1 fL (9.1-12.4); NEUTROPHILS ABSOLUTE AUTO 11.79 K/mm3 (1.96-9.15); NEUTROPHILS PERCENT AUTO 76 % (41-73); Platelet Count 463 K/mm3 (150-400); RDW Coefficient Variation 14.9 % (11.7-14.2); RDW Standard Deviation 50.7 fL (35.1-46.3); Red Blood Cell Count 4.49 M/mm3 (4.30-5.90); White Blood Cell Count 15.54 K/mm3 (4.00-11.30)
[2019-05-09 21:32] LABS: Mean Corpuscular Volume 92 fL (80-100)
[2019-05-09 21:47] LABS: Alanine Aminotransfer (ALT/SGP 11 U/L (12-78); Albumin, Blood 2.2 g/dL (3.4-5.0); Albumin/Globulin Ratio 0.4 (0.8-1.8); Alk Phos 160 U/L (50-136); Anion Gap 8 mmol/L (6-16); Aspartate Aminotrans (AST/SGOT 15 U/L (12-37); Bilirubin, Total 0.8 mg/dL (0.1-1.0); Blood Urea Nitrogen 22 mg/dL (8-24); Bun/Creatinine Ratio 25.1 (12.0-20.0); CO2, Blood 23 mmol/L (21-32); Calcium, Blood 8.4 mg/dL (8.5-10.1); Chloride, Blood 103 mmol/L (98-108); Creatinine, Blood 0.88 mg/dL (0.60-1.20); Globulin, Blood 6.2 g/dL (2.2-4.0); Glomerular Filtration Rate >60 (60-); Glucose, Blood 228 mg/dL (70-99); Sodium, Blood 134 mmol/L (136-145); Total Protein, Blood 8.4 g/dL (6.4-8.2)
[2019-05-10 00:34] LABS: BASOPHILS ABSOLUTE AUTO 0.07 K/mm3 (0.00-0.23); BASOPHILS PERCENT AUTO 0 % (0-2); EOSINOPHILS ABSOLUTE AUTO 0.11 K/mm3 (0.00-0.68); EOSINOPHILS PERCENT AUTO 1 % (0-6); Hematocrit 36.4 % (37.0-53.0); Hemoglobin 11.4 g/dL (13.5-17.5); IMMATURE GRAN ABSOLUTE AUTO 0.12 K/mm3 (0.00-0.10); IMMATURE GRAN PERCENT AUTO 1 % (0-1); LYMPHOCYTES ABSOLUTE AUTO 2.04 K/mm3 (0.84-5.20); LYMPHOCYTES PERCENT AUTO 13 % (21-46); MONOCYTES ABSOLUTE AUTO 0.87 K/mm3 (0.16-1.47); MONOCYTES PERCENT AUTO 6 % (4-13); Mean Corpuscular HGB 28.9 pg (26.0-34.0); Mean Corpuscular HGB Conc 31.3 g/dL (31.5-36.5); Mean Corpuscular Volume 92 fL (80-100); Mean Platelet Volume 9.1 fL (9.1-12.4); NEUTROPHILS ABSOLUTE AUTO 12.72 K/mm3 (1.96-9.15); NEUTROPHILS PERCENT AUTO 80 % (41-73); Platelet Count 403 K/mm3 (150-400); RDW Coefficient Variation 14.8 % (11.7-14.2); RDW Standard Deviation 50.5 fL (35.1-46.3); Red Blood Cell Count 3.94 M/mm3 (4.30-5.90); White Blood Cell Count 15.93 K/mm3 (4.00-11.30)
--- NOTE | 2019-05-10 05:33 | NUR ---
SHIFT SUMMARY: PT IS ALERT AND ORIENTED, HX OF SCHIZOPHRENIA, CALM AND COOPERATIVE WITH CARE. PT IS NON-AMBULATORY, MAX ASSIST. PT CALLS APPROPRIATELY. PT ARRIVED WITH SATURATED BLE DRESSINGS COVERING SEVERE LEG INFECTIONS, THERE WERE MANY MAGGOTS ON BOTH LEGS AND FEET, MAGGOTS WERE REMOVED, WOUNDS WERE SPRAYED WITH WOUND CLEANSER, AND DRESSED WITH ABD PADS AND GAUZED WRAPS. PT REPORTS BL FOOT PAIN ON ONE OCCASION, GAVE PRN TYLENOL. PT DENIES NAUSEA, VOMITING, AND SOB. FLUIDS RUNNING ORDERED. ORTHO CONSULT CALLED TO DR. ALFREDO, PT STATES HE WOULD PREFER A DIFFERENT DOCTOR, A NOTE WAS MADE OF THIS BY THE ANSWERING SERVICE SO DR. ALFREDO IS AWARE, WILL PASS ALONG TO DAY NURSE. PT SLEPT MOST OF THE NIGHT AFTER ADMISSION. WILL CONTINUE TO MONITOR.
--- NOTE | 2019-05-10 17:35 | NUR ---
SHIFT SUMMARY PATIENT ALERT AND ORIENTED X3, BUT AT TIMES WHEN ASKED QUESTIONS HE WILL NOT ANSWER THE QUESTION AND TALK ABOUT HOW HE WAS IN A FAMOUS BAND AND HIS KIDS ARE FAMOUS, ETC. PT CALM AND COOPERTIVE WITH CARE, C/O MINIMAL PAIN IN BLE, RATED 3/10. PT WAS NPO DURING THE DAY EXCEPT FOR DINNER. DR ALFREDO SAW PT AT AROUND 1630, HE REMOVED BANDAGES, RN AND HIGH SCHOOL TEACHER CLEANED FEET/LEGS WITH SOAP AND WATER, AND DR ASSESSED FEET FURTHER. MAGGOTS STILL IN WOUND, FOUL SMELL. DR ALFREDO DISCUSSED SURGERY WITH PATIENT FOR TOMORROW. PATIENT REQUESTING A BREATHING TREATMENT, MED ORDERED PER DR OSORIO AND RESPIRATORY NOTIFIED -[phone].
--- NOTE | 2019-05-11 04:31 | NUR ---
SHIFT SUMMARY: PT IS ALERT AND ORIENTED WITH MINOR CONFUSION. PT IS CALM AND COOPERATIVE WITH CARE. PT CALLS APPROPRIATELY. PT IS A MAX ASSIST, NOT OUT OF BED OVERNIGHT, USING THE URINAL INDEPENDENTLY. PT NPO AFTER MIDNIGHT ORDERED FOR POSSIBLE SURGERY. PT DENIES PAIN, NAUSEA, VOMITING, AND SOB. PT SLEPT MUCH OF THE NIGHT WHEN NOT DISTURBED. NO ACUTE CHANGES OR COMPLICATIONS. WILL CONTINUE TO MONITOR.
[2019-05-11 05:14] LABS: BASOPHILS ABSOLUTE AUTO 0.19 K/mm3 (0.00-0.23); BASOPHILS PERCENT AUTO 1 % (0-2); EOSINOPHILS ABSOLUTE AUTO 0.13 K/mm3 (0.00-0.68); EOSINOPHILS PERCENT AUTO 1 % (0-6); Hematocrit 37.7 % (37.0-53.0); Hemoglobin 11.6 g/dL (13.5-17.5); IMMATURE GRAN ABSOLUTE AUTO 0.15 K/mm3 (0.00-0.10); IMMATURE GRAN PERCENT AUTO 1 % (0-1); LYMPHOCYTES ABSOLUTE AUTO 2.88 K/mm3 (0.84-5.20); LYMPHOCYTES PERCENT AUTO 20 % (21-46); MONOCYTES ABSOLUTE AUTO 0.83 K/mm3 (0.16-1.47); MONOCYTES PERCENT AUTO 6 % (4-13); Mean Corpuscular HGB 27.9 pg (26.0-34.0); Mean Corpuscular HGB Conc 30.8 g/dL (31.5-36.5); Mean Corpuscular Volume 91 fL (80-100); Mean Platelet Volume 9.1 fL (9.1-12.4); NEUTROPHILS ABSOLUTE AUTO 9.94 K/mm3 (1.96-9.15); NEUTROPHILS PERCENT AUTO 70 % (41-73); Platelet Count 413 K/mm3 (150-400); RDW Coefficient Variation 14.9 % (11.7-14.2); RDW Standard Deviation 49.2 fL (35.1-46.3); Red Blood Cell Count 4.16 M/mm3 (4.30-5.90); White Blood Cell Count 14.12 K/mm3 (4.00-11.30)
[2019-05-11 05:42] LABS: Alanine Aminotransfer (ALT/SGP 13 U/L (12-78); Albumin, Blood 1.8 g/dL (3.4-5.0); Albumin/Globulin Ratio 0.3 (0.8-1.8); Alk Phos 169 U/L (50-136); Anion Gap 7 mmol/L (6-16); Aspartate Aminotrans (AST/SGOT 14 U/L (12-37); Bilirubin, Total 0.8 mg/dL (0.1-1.0); Blood Urea Nitrogen 19 mg/dL (8-24); Bun/Creatinine Ratio 22.4 (12.0-20.0); CO2, Blood 23 mmol/L (21-32); Calcium, Blood 7.9 mg/dL (8.5-10.1); Chloride, Blood 108 mmol/L (98-108); Creatinine, Blood 0.85 mg/dL (0.60-1.20); Globulin, Blood 5.5 g/dL (2.2-4.0); Glomerular Filtration Rate >60 (60-); Glucose, Blood 180 mg/dL (70-99); Sodium, Blood 138 mmol/L (136-145); Total Protein, Blood 7.3 g/dL (6.4-8.2)
[2019-05-11 08:32] LABS: Vancomycin, Trough 19.5 ug/mL (5.0-10.0)
--- NOTE | 2019-05-11 18:36 | NUR ---
SHIFT SUMMARY PATIENT'S MENTAL STATUS HAS NOT CHANGED. HE STATED SEVERAL TIMES THAT HE WAS TOLD THAT "THE BONE SCAN SHOWED THAT HE HAD NO BONE ROT" SO HE REQUESTED A SECOND OPINION WITH A CLIENT SERVICE MANAGER. DR ALFREDO HAD A LENGTHY DISCUSSION WITH PATIENT. AMEDYSIS RN MARNIE WAS NOTIFIED AND HE CAME RIGHT IN AND DISCUSSED WITH PT AND DR WELL. NO SURGERY TODAY, ADA DIET RESUMED. BLOOD SUGARS CONTROLLED. PATIENT C/O ONLY MINIMAL PAIN, REQUESTED TYLENOL AROUND 1800 FOR INCREASED PAIN AFTER DRESSING CHANGE. WOUNDS CLEANED/DRESSINGS CHANGED THIS AFTERNOON, PER DR ALFREDO'S ORDERS. SEE WOUND CARE DETAILS IN FOCUSED ASSESSMENT SECTION.
--- NOTE | 2019-05-12 04:27 | NUR ---
SHIFT SUMMARY PT HAD NO ISSUES NOTED DURING SHIFT. PT HAS BEEN SLEEPING OFF AND ON T/O SHIFT. PT BANDAGES ARE INTACT AND DRY. PT CURRENTLY SLEEPING IN NO DISTRESS. CALL LIGHT IN REACH AND BED ALARM ON.
[2019-05-12 04:59] LABS: Hematocrit 40.3 % (37.0-53.0); Hemoglobin 12.5 g/dL (13.5-17.5); Mean Corpuscular HGB 28.7 pg (26.0-34.0); Mean Corpuscular Volume 92 fL (80-100); Platelet Count 441 K/mm3 (150-400); RDW Coefficient Variation 14.8 % (11.7-14.2); RDW Standard Deviation 50.5 fL (35.1-46.3); Red Blood Cell Count 4.36 M/mm3 (4.30-5.90); White Blood Cell Count 15.29 K/mm3 (4.00-11.30)
[2019-05-12 05:21] LABS: Anion Gap 9 mmol/L (6-16); Blood Urea Nitrogen 24 mg/dL (8-24); Bun/Creatinine Ratio 26.8 (12.0-20.0); CO2, Blood 20 mmol/L (21-32); Calcium, Blood 8.3 mg/dL (8.5-10.1); Chloride, Blood 109 mmol/L (98-108); Creatinine, Blood 0.89 mg/dL (0.60-1.20); Glomerular Filtration Rate >60 (60-); Glucose, Blood 192 mg/dL (70-99); Potassium, Blood 4.4 mmol/L (3.5-5.5); Sodium, Blood 138 mmol/L (136-145)
[2019-05-12 05:25] LABS: BASOPHILS ABSOLUTE MAN 0.45 K/mm3 (0.00-0.23); BASOPHILS PERCENT MAN 3 % (0-2); EOSINOPHILS PERCENT MAN 0 % (0-6); LYMPHOCYTES ABSOLUTE MAN 3.05 K/mm3 (0.84-5.20); LYMPHOCYTES PERCENT MAN 20 % (21-46); MONOCYTES PERCENT MAN 2 % (4-13); MYELOCYTE ABSOLUTE MAN 0.15 K/mm3 (0.00-0.00); MYELOCYTE PERCENT MAN 1 % (0-0); NEUTROPHILS ABSOLUTE MAN 11.31 K/mm3 (1.96-9.15); SEG NEUTROPHILS PERCENT MAN 74 % (41-73); TOTAL CELLS COUNTED 100
--- NOTE | 2019-05-12 19:10 | NUR ---
PT. LYING QUIETLY. DR. ALFREDO AND DR. MCNEAL INTO SEE PT. TODAY. ADVISED PT. HE NEEDED AN AKA OF THE RLE IT HAD OSTEOMYLITIS. STILL NOT SATISFIED WITH WHAT DR. MCNEAL HAD TO SAY. WANTS TO WAIT AND TALK TO THE NEW ORTHO TOMORROW. TO BE NPO AFTER MIDNOC PER DR. ALFREDO IN ANTICIPATION OF SURGERY IN THE MORNING BY DR. WARD.
--- NOTE | 2019-05-13 05:02 | NUR ---
SHIFT SUMMARY A/O, ABLE TO MAKE NEEDS KNOWN. COOPERATIVE WITH CARE. CALLS AND ANSWERS QUESTIONS APPRPOPRIATELY. C/O PAIN/DISCOMFORT TO BLE; MEDICATED X1 PER EMAR. IV ABX INFUSED WITHOUT COMPLICATION. APPEARED TO REST MUCH OF SHIFT. HR ELEVATED T/O SHIFT. NO OTHER ACUTE CHANGES NOTED. BED IN LOWEST POSITION. CALL LIGHT AND BELONGINGS WITHIN REACH. NPO @ 0000 FOR POSSIBLE PROCEDURE 05/13/19. WCTM. REPORT TO ONCOMING RN.
--- NOTE | 2019-05-13 15:45 | NUR ---
Elbert was alert, friendly and communicative. His speech was legible and pleasant with periodic incongruities. Overall he appeared to understand that he is approaching a situation where surgical intervention is unavoidable. He displays some concern, anxiety and reticence about this but seems to be coming to terms with the idea. He is far more open, if not outright welcoming to [employer]D support for benefit enrollment, rehab and foster placement. I reinforced the importance of surgery and applauded his receptivity to State involvement. Will continue to follow, support and encourage Elbert.
--- NOTE | 2019-05-13 19:00 | NUR ---
PT. LYING QUIETLY, NO NOTEABLE CHANGES TODAY. DRR. ALFREDO INDICATED THEY WOULD BE DOING THE AMPUTATIONS ON SUNDAY OR SUNDAY.
--- NOTE | 2019-05-14 04:16 | NUR ---
SHIFT ASSESSMENT PT IS ALERT, ORIENTED, AND ON BEDREST. PT'S PAIN WAS COVERED WITH TYLENOL WELL. DRESSINGS WERE CHANGED BILATERALLY AT 0000. VSS. PT NPO AT MIDNIGHT PER ORDER. PT HAD GOOD URINE OUTPUT. NO OTHER COMPLAINTS AT THIS TIME. WILL CONTINUE TO MONITOR.
--- NOTE | 2019-05-14 18:22 | NUR ---
PT. WATCHIING TV. NO COMPLAINTS. DR. ALFREDO HERE AGAIN TODAY, PT. TO BE NPO AGAIN AT [facility]. DAY RN IS TO CALL OR IN MORNING TO SEE IF HE IS ON THE OR LIST OR THE RESPIRATORY THERAPY MANAGER CAN. IF HE IS NOT ON THE LIST HE CAN EAT. PT. GOT UP TO BSC TODAY WITH 1 PERSON ASSIST AND USE OF FWW. PT. NEEDS TO BE CUED TO PUSH OFF BED AND HOW TO TRANSFER HANDS TO FWW. PT. PRESENTED WITH A LARGE B.M.
--- NOTE | 2019-05-15 04:13 | NUR ---
SHIFT SUMMARY PT IS ALERT AND ORIENTED. PT'S WOUNDS NOTED TO HAVE SIGNIFICANTLY MORE PURULENT, FOUL SMELLING DRAINAGE THEN THE NIGHT BEFORE THIS ONE. DRESSING CHANGED TONIGHT PER MD ORDER. PT TOLERATED IT WELL. TYLENOL WAS GIVEN FOR PAIN ONCE. PT NPO AFTER MIDNIGHT. VSS. WILL CONITNUE TO MONITOR.
[2019-05-15 05:08] LABS: Hemoglobin 12.5 g/dL (13.5-17.5); Mean Corpuscular HGB 28.7 pg (26.0-34.0); Mean Corpuscular HGB Conc 30.5 g/dL (31.5-36.5); Mean Corpuscular Volume 94 fL (80-100); Mean Platelet Volume 9.2 fL (9.1-12.4); NRBC ABSOLUTE 0.02 K/mm3 (0.00-0.02); NRBC Auto 0.2 /100 WBC (0.0-0.2); Platelet Count 425 K/mm3 (150-400); RDW Coefficient Variation 15.4 % (11.7-14.2); Red Blood Cell Count 4.35 M/mm3 (4.30-5.90)
[2019-05-15 05:30] LABS: BASOPHILS ABSOLUTE MAN 0.12 K/mm3 (0.00-0.23); BASOPHILS PERCENT MAN 1 % (0-2); EOSINOPHILS ABSOLUTE MAN 0.25 K/mm3 (0.00-0.68); EOSINOPHILS PERCENT MAN 2 % (0-6); LYMPHOCYTES % ATYPICAL MANUAL 1 % (0-0); LYMPHOCYTES ABSOLUTE MAN 2.81 K/mm3 (0.84-5.20); LYMPHOCYTES PERCENT MAN 21 % (21-46); METAMYELOCYTE ABSOLUTE MAN 0.12 K/mm3 (0.00-0.00); METAMYELOCYTE PERCENT MAN 1 % (0-0); MONOCYTES PERCENT MAN 0 % (4-13); NEUTROPHILS ABSOLUTE MAN 9.47 K/mm3 (1.96-9.15); SEG NEUTROPHILS PERCENT MAN 74 % (41-73); TOTAL CELLS COUNTED 100
[2019-05-15 05:39] LABS: Anion Gap 5 mmol/L (6-16); Blood Urea Nitrogen 23 mg/dL (8-24); Bun/Creatinine Ratio 25.5 (12.0-20.0); CO2, Blood 23 mmol/L (21-32); Calcium, Blood 8.3 mg/dL (8.5-10.1); Chloride, Blood 111 mmol/L (98-108); Glomerular Filtration Rate >60 (60-); Glucose, Blood 185 mg/dL (70-99); Potassium, Blood 4.4 mmol/L (3.5-5.5); Sodium, Blood 139 mmol/L (136-145)
[2019-05-15 08:46] LABS: Creatinine, Blood 0.87 mg/dL (0.60-1.20); Vancomycin, Trough 32.8 ug/mL (5.0-10.0)
--- NOTE | 2019-05-15 10:18 | NUR ---
NURSE CALLED DR ALFREDO WHO STATES THAT PT WILL NOT BE HAVING SURGERY TODAY BUT DEFINITELY TOMORROW. PT CAN EAT. PT NOTIFIED AND GIVEN WATER
--- NOTE | 2019-05-15 13:40 | NUR ---
CHEST PAIN AT 0840 PT COMPLAINED OF CHEST PAIN. NURSE ASSESSED PT WHO STATED PAIN WAS 3/10, ACHE. HE STATED THAT IT FELT LIKE A HEART ATTACK, THOUGH PT DENIES HAVING ONE IN THE PAST. NURSE CALLED DR LANDERS AT 0844 WHO ORDERED STAT EKG. PT ALSO HAD CRITICAL VANCO TROUGH OF 32.8 CALLED TO PHARMACY AT 0847. DR LANDERS NOTIFIED OF EKG RESULTS AT 0912, WHO ORDERED A TROPONIN LAB DRAW, SEE RESULTS. VSS. PY REPORTS FEELING BETTER AFTER EATING LUNCH
--- NOTE | 2019-05-15 17:47 | NUR ---
SHIFT SUMMARY PT AXO, COOPERATIVE WITH CARE. THIS MORNING PT COMPLAINED OF CHEST PAIN, SEE NOTE. PT DENIES CHEST PAIN AT THIS TIME. VSS. DRESSING CHANGE NOT COMPLETED THIS SHIFT FOR THEY WERE COMPLETED DURING COMPOSITE BOAT BUILDER LAST NIGHT. DR ALFREDO STATES THAT PT WILL HAVE SURGERY TOMORROW. BED IN LOW POSITION, CALL LIGHT WITHIN REACH. PT UP TO A RECLINER AT THIS TIME EATING DINNER. PT DENIES PAIN, SOB AND NV. NO OTHER CHANGES THIS SHIFT.
[2019-05-15 21:05] LABS: Vancomycin, Trough 25.8 ug/mL (5.0-10.0)
--- NOTE | 2019-05-16 04:06 | NUR ---
SHIFT SUMMARY PT IS ALERT, ORIENTED, AND A TWO ASSIST WITH WALKER. PT WAS GIVEN TYLENOL FOR PAIN ONCE. DRESSING CHANGE DONE, AND THE PT TOLERATED IT WELL. MEDS GIVEN ORDERED. VSS. THIS RN ENCOURAGED ANY QUESTIONS ABOUT THE PT'S UPCOMING PROCEDURE, BUT THE PT HAS YET TO SIGN THE PAPER WORK. PT HAS BEEN NPO SINCE MIDNIGHT. WILL CONTINUE TO MONITOR.
[2019-05-16 05:23] LABS: Vancomycin, Random 20.6 ug/mL
--- NOTE | 2019-05-16 06:25 | NUR ---
THIS RN ASKED THE PT WHETHER OR NOT HE HAD THOUGHT ANY MORE ABOUT SIGNING THE CONSENT FOR SURGERY. THE PT STATED THAT HE NO LONGER WANTED THE SURGERY AND THAT HE WOULD GO SOMEWHERE ELSE TO FIX HIS LEGS IF HE HAD TO. THIS RN REPEATED WHAT THE DOCTOR TOLD THE PT LAST NIGHT, THAT IF THE SURGERY DIDN'T HAPPEN, THE PT'S INFECTION COULD KILL HIM. THE PT DISAGREED WITH THIS RN. NO AMOUNT OF EDUCATION ON THE PT'S CURRENT CONDITION HELPED THE PT TO UNDERSTAND THE SEVERITY OF THE PT'S INFECTION. CHARGE NURSE NAPOLEON WAS MADE AWARE OF THE SITUATION. WILL CONTINUE TO MONITOR PT.
--- NOTE | 2019-05-16 10:50 | NUR ---
Initial Visit; Pt is scheduled for bilateral amputations of legs due to infection. Pt has long history of mental health illness and has been deemed by Dr. Alston to be unable to make decisons regarding his healthcare and his finances. he was recommended for guardianship. Pt is alert, impaired judgement and poor understanding of situation. He is refusing surgery that would be life-saving for him. He is certain that his infection can be resolved "with strong antibiotics." Dr Lovelace is present and reviews risk of declining the surgery. Pt is arguing that his bone is not involved in the infection. Stayed and sat with pt to discuss further. Style of conversation is straight forward, plain terms. Instructed that the doctors have recommended this surgery because of his failed antibiotic therapy and continued infections. He is fixated on the antibiotic therapy, and keeps coming back to this talking point. He is flatly refusing to consider the surgery, and he wants to eat. Call placed to the sister, Armani, to update her on developments. She does not have guardianship, doesn't want to be involved with decision making, but states, "he doesn't know what he is doing. I'd like to see him have the surgery." Reviewed with Dr. Lovelace, nurse, and Daniel Alejandro for ethic concerns. Surgeons are reluctant to do this radical of a surgery without the pt's specific consent. Will follow up as needed.
--- NOTE | 2019-05-16 12:59 | NUR ---
Elbert was alert, talkative and pleasant. His communication was comprehensible with episodic deviation into unrelated subject matter. I suspect to some degree this is a tactic to avoid discussing more pressing issues. Elbert reports that he is electing to forgo surgery at this time. He is under the unsupported impression that antibiotic treatment will sufficiently remediate the encroaching condition. I disconfirmed the probability of this outcome, and strongly encouraged him to carefully weight the risk and reconsider the procedure. Elbert was friendly but declined my advise. We discussed his fear briefly and I noted that it would be a more terrifying prospect to endure the loss of life over the loss of limb. Elbert showed evidence of understanding and partial / tentative agreement but persisted in his decliniation. I told him we would respect his choice even though we dont endorse it. He thanked me. I asked care management to look into rehab elegibility and work with [employer]D on manager terminal accomodations outside the hospital. I will monitor and follow up.
[2019-05-16 13:43] LABS: Vancomycin, Random 17.8 ug/mL
--- NOTE | 2019-05-16 17:54 | NUR ---
PT AWAKE AND ALERT THROUGHOUT MOST OF THIS SHIFT. PT REFUSED SURGERY RECOMMENDED BY 'Deyanira SCHEDULED FOR THIS AFTERNOON. PT MOSTLY ORIENTED, BUT OCCASIONALLY DRIFTS TO NONSENSICAL TANGENTS. PT COOPERATIVE WITH CARE, YET UNABLE TO ACCEPT THE OUTCOME PREDICTED BY THE DOCTORS. PT CALM THROUGHOUT THESE DISCUSSIONS, TURNING THE CONVERSATION WHEN TOLD THE LIKELY OUTCOMES. PT CURRENTLY UP IN CHAIR EATING DINNER. WILL CONTINUE TO MONITOR.
--- NOTE | 2019-05-17 04:05 | NUR ---
SHIFT SUMMARY AOX3. LS CLEAR, C/O SOB WITH ACTIVITY. NO C/O NAUSEA. PAIN RATED 2/10 IN FEET. 3+ EDEMA IN BLE. DRESSINGS ARE C/D/I. DAILY DRESSING CHANGE. L FA IV IS SL. UP WITH 1 ASSIST AND WALKER. PT REFUSES AMPUTATION. BOTH PT AND OT CONSULTED. VSS. PLAN IS TO DC TO [facility] ON SUNDAY.
[2019-05-17 14:19] LABS: Vancomycin, Random 16.9 ug/mL
[2019-05-17 15:56] LABS: Vancomycin, Random 16.9 ug/mL
--- NOTE | 2019-05-17 17:47 | NUR ---
LEG WOUND DRESSINGS DRESSINGS TO B/L LEG WOUNDS NOT CHANGED TODAY, PT HAS BEEN UP TO BEDSIDE CHAIR SINCE BEFORE LUNCH. REQUESTED THAT HE GET BACK ON THE BED SO DRESSINGS COULD BE CHANGED. PT SAYS THAT HE WILL, BUT HAS NOT COMPLIED WITH THE REQUEST.
--- NOTE | 2019-05-17 18:30 | NUR ---
PT UP TO CHAIR MOST OF THE DAY, HAS NOT RETURNED TO BED WHEN ASKED, B/L DRESSINGS NOT CHANGED THIS SHIFT, WILL REQUEST HEDGE FUND TRADER CHANGE WHEN PT RETURNS TO BED. NO ACUTE CHANGES NOTED THIS SHIFT, WILL CONTINUE TO MONITOR AND REPORT TO ONCOMING RN
--- NOTE | 2019-05-18 04:29 | NUR ---
SHIFT SUMMARY. NO ASSESSMENT CHANGES. DRESSINGS CHANGED. VSS. PT STILL DENYING HIS CURRENT HEALTH STATUS, REFUSES AMPUTATION. [facility].
[2019-05-18 17:29] LABS: Vancomycin, Random 19.3 ug/mL
--- NOTE | 2019-05-18 18:40 | NUR ---
B/L LEG DRESSINGS REMOVED, WOUNDS CLEANED AND NEW DRESSING PLACED. PT TOLERATED WELL. NO ACUTE CHANGES NOTED THIS SHIFT, WILL CONTINUE TO MONITOR AND REPORT TO ONCOMING RN
--- NOTE | 2019-05-19 04:03 | NUR ---
SHIFT SUMMARY NO ASSESSMENT CHANGES. TYLENOL GIVEN @ 2039 FOR PAIN IN FEET. DRESSINGS ARE C/D/I. PLAN IS TO DC TO [facility] TODAY.
--- NOTE | 2019-05-19 18:33 | NUR ---
SHIFT SUMMARY NO ACUTE CHANGES THIS SHIFT. PT WORKED WITH OCCUPATIONAL THERAPY AND GOT UP IN CHAIR AT BEDSIDE. PHYSICAL THERAPY DID LEG EXERCISES WITH PT THIS AFTERNOON. PT HAS HAD NO COMPLAINTS. PLANS FOR PT TO BE DISCHARGED TO [facility] TOMORROW. CALL LIGHT IN REACH. WILL CONTINUE TO MONITOR AND REPORT TO ONCOMING RN.
--- NOTE | 2019-05-19 21:00 | NUR ---
UNDOCUMENTED 20G R.HAND IV PRESENT W/IV ABX INFUSING.
--- NOTE | 2019-05-20 01:45 | NUR ---
REPORT PROVIDED TO CHAD CALL AND PT T/F TO ROOM 337. NO COMPLAINT OR CONCERNS AT THAT TIME. PT WAS STABLE W/O ACUTE CHANGES.
--- NOTE | 2019-05-20 02:30 | NUR ---
PATIENT MOVED ROOM. ASSUMED CARE OF PATIENT. PATIENT DENIES ANY PAIN. GIVEN BACK RUB. PATIENT LEG DRESSINGS COMPLETED BY CHARGE NURSES.
--- NOTE | 2019-05-20 05:30 | NUR ---
PATIENT ASKING FOR A BACK RUB WHENEVER YOU ARE IN THE ROOM. PATIENT SLEEPING COMFORTABLY SINCE ROOM CHANGE. NO SIGNS OF DISTRESS NOTED WHILE SLEEPING. CALL LIGHT REMAINS WITH IN REACH.
--- NOTE | 2019-05-20 17:30 | NUR ---
DISCHARGE PATIENT DISCHARGED TO [facility] AT 1651. REPORT CALLED TO NURSE EDWARDS AT [facility]. VSS. PT HAD BM IN COMMODE THIS MORNING. LOST IV ACCESS IN MORNING, HOSPITALIST WAS NOTIFIED. NO CHANGES TO PT CONDITION. RN ATTEMPTED ANOTHER SITE BUT FAILED, CHARGE NURSE WAS NOTIFIED. PATIENT SAT IN CHAIR MOST OF DAY, WORKED WITH OT. DC PACKET AND FACESHEET GIVEN TO TRANSPORTER, PT PIVOTED TO WHEELCHAIR. WALLET THAT WAS IN CUSTODY OF SECURITY RETURNED TO PATIENT WITH ALL CONTENTS INTACT, MONEY AMOUNT CONFIRMED WITH WHAT WAS DOCUMENTED ON ENVELOPE.
== END 2019-05-20 16:50 | DRG 638 ==
LOC: ER 16:33 → MEDS 23:31 → ENPENDDIS 05-20 14:28 → MEDS 05-20 16:50
PROVIDERS: Internal Medicine; Pharmacist; Physician Assistant; ADMIT Hospitalist
DX: E11.69 Type 2 diabetes mellitus with other specified complication (principal); M86.171 Other acute osteomyelitis, right ankle and foot; I50.42 Chronic combined systolic (congestive) and diastolic (congestive) heart failure; E87.1 Hypo-osmolality and hyponatremia; L03.115 Cellulitis of right lower limb; L97.426 Non-pressure chronic ulcer of left heel and midfoot with bone involvement without evidence of necrosis; L97.416 Non-pressure chronic ulcer of right heel and midfoot with bone involvement without evidence of necrosis; E11.621 Type 2 diabetes mellitus with foot ulcer; F20.9 Schizophrenia, unspecified; I48.0 Paroxysmal atrial fibrillation; J45.909 Unspecified asthma, uncomplicated; K21.9 Gastro-esophageal reflux disease without esophagitis; E78.5 Hyperlipidemia, unspecified; I11.0 Hypertensive heart disease with heart failure; Z89.429 Acquired absence of other toe(s), unspecified side; E66.9 Obesity, unspecified; Z87.891 Personal history of nicotine dependence; B87.9 Myiasis, unspecified; B95.0 Streptococcus, group A, as the cause of diseases classified elsewhere; B95.4 Other streptococcus as the cause of diseases classified elsewhere
CPT/HCPCS: 36415; 73552; 73590; 73701; 80048; 80053; 80202; 82565; 82947; 84484; 85025; 85651; 86140; 93005; 93010; 94640; 94760; 96365; 97110; 97163; 97166; 97530; 97535; 99284-25; A9270; J0713; J2704; J3010; J3370; J7030; J7040; J7050; Q9967

== ENCOUNTER 2019-05-23 19:42 | Emergency (ER) | payer MEDICARE, OTHER ==
[~2019-05-23] VITALS: Ht 182.9 cm; Wt 163.3 kg
[2019-05-23 20:56] LABS: BASOPHILS ABSOLUTE AUTO 0.19 K/mm3 (0.00-0.23); BASOPHILS PERCENT AUTO 1 % (0-2); EOSINOPHILS ABSOLUTE AUTO 0.32 K/mm3 (0.00-0.68); EOSINOPHILS PERCENT AUTO 2 % (0-6); Hematocrit 47.6 % (37.0-53.0); Hemoglobin 14.1 g/dL (13.5-17.5); IMMATURE GRAN ABSOLUTE AUTO 0.15 K/mm3 (0.00-0.10); IMMATURE GRAN PERCENT AUTO 1 % (0-1); LYMPHOCYTES ABSOLUTE AUTO 2.49 K/mm3 (0.84-5.20); LYMPHOCYTES PERCENT AUTO 15 % (21-46); MONOCYTES ABSOLUTE AUTO 0.91 K/mm3 (0.16-1.47); MONOCYTES PERCENT AUTO 6 % (4-13); Mean Corpuscular HGB 28.8 pg (26.0-34.0); Mean Corpuscular HGB Conc 29.6 g/dL (31.5-36.5); Mean Corpuscular Volume 97 fL (80-100); Mean Platelet Volume 9.3 fL (9.1-12.4); NEUTROPHILS ABSOLUTE AUTO 12.18 K/mm3 (1.96-9.15); NEUTROPHILS PERCENT AUTO 75 % (41-73); Platelet Count 370 K/mm3 (150-400); RDW Coefficient Variation 16.6 % (11.7-14.2); RDW Standard Deviation 59.4 fL (35.1-46.3); White Blood Cell Count 16.24 K/mm3 (4.00-11.30)
[2019-05-23 21:15] LABS: Alanine Aminotransfer (ALT/SGP 13 U/L (12-78); Albumin, Blood 2.1 g/dL (3.4-5.0); Albumin/Globulin Ratio 0.4 (0.8-1.8); Alk Phos 191 U/L (50-136); Anion Gap 7 mmol/L (6-16); Aspartate Aminotrans (AST/SGOT 23 U/L (12-37); Bilirubin, Total 0.6 mg/dL (0.1-1.0); Blood Urea Nitrogen 22 mg/dL (8-24); Bun/Creatinine Ratio 24.1 (12.0-20.0); CO2, Blood 23 mmol/L (21-32); Calcium, Blood 8.2 mg/dL (8.5-10.1); Chloride, Blood 111 mmol/L (98-108); Creatinine, Blood 0.91 mg/dL (0.60-1.20); Globulin, Blood 5.4 g/dL (2.2-4.0); Glomerular Filtration Rate >60 (60-); Glucose, Blood 176 mg/dL (70-99); Potassium, Blood 4.3 mmol/L (3.5-5.5); Sodium, Blood 141 mmol/L (136-145); Total Protein, Blood 7.5 g/dL (6.4-8.2)
[2019-05-23 21:34] LABS: Source, Urine Clean Catch
[2019-05-23 21:42] LABS: Bilirubin, Urine Neg (Neg); Blood, Urine 4+ (Neg); Glucose Qualitative, Urine Neg (Neg); Ketones, Urine Neg (Neg); Leukocyte Esterase, Urine 1+ (Neg); Nitrite, Urine Neg (Neg); Protein, Urine 3+ (Neg); Specific Gravity, Urine 1.015 (1.003-1.022); Urobilinogen, Urine NORM (Normal)
[2019-05-23 21:44] LABS: Appearance, Urine Clear (Clear); Color, Urine Yellow (P-Yellow)
[2019-05-23 21:53] LABS: Bacteria Few /hpf; Squamous Epithelial Cells Few /hpf (Few)
[2019-05-23] MEDS ORDERED: NYSTRITC TOP (22:04)
== END 2019-05-23 22:58 | disposition home or self-care (01) ==
LOC: ER 19:42
PROVIDERS: Emergency Medicine
DX: N50.89 Other specified disorders of the male genital organs (principal); Z79.899 Other long term (current) drug therapy; E11.9 Type 2 diabetes mellitus without complications; I10 Essential (primary) hypertension; J45.909 Unspecified asthma, uncomplicated; Z87.891 Personal history of nicotine dependence
CPT/HCPCS: 36415; 76870; 80053; 81001; 85025; 87086; 87106; 96374; 99284-25; J1940

== ENCOUNTER 2019-07-14 18:55 | Inpatient (IN) | payer MEDICARE, OTHER ==
[~2019-07-14] VITALS: Ht 170.2 cm; Wt 134.4 kg
[~2019-07-14 18:55] MED LIST changes: +NYSTRITC TOP
[2019-07-14 19:31] LABS: Source, Urine Clean Catch
[2019-07-14 19:36] LABS: Blood, Urine 5+ (Neg); Glucose Qualitative, Urine Neg (Neg); Ketones, Urine 1+ (Neg); Leukocyte Esterase, Urine 1+ (Neg); Nitrite, Urine Neg (Neg); Protein, Urine 3+ (Neg); Specific Gravity, Urine 1.025 (1.003-1.022); Urobilinogen, Urine 2+ (Normal)
[2019-07-14 19:39] LABS: Appearance, Urine Hazy (Clear); Bilirubin, Urine 1+ (Neg); Color, Urine Amber (P-Yellow)
[2019-07-14 19:43] LABS: Amorphous Heavy (0-Heavy); Bacteria Mod /hpf; Granular Casts 0-2 /lpf (0); Mucus Light (0-Heavy); Squamous Epithelial Cells Rare /hpf (Few); White Blood Cells, Urine 0-2 /hpf (0-5)
[2019-07-14 19:47] LABS: BASOPHILS ABSOLUTE AUTO 0.04 K/mm3 (0.00-0.23); BASOPHILS PERCENT AUTO 0 % (0-2); EOSINOPHILS PERCENT AUTO 0 % (0-6); Hematocrit 44.8 % (37.0-53.0); Hemoglobin 14.2 g/dL (13.5-17.5); IMMATURE GRAN ABSOLUTE AUTO 0.16 K/mm3 (0.00-0.10); IMMATURE GRAN PERCENT AUTO 1 % (0-1); LYMPHOCYTES ABSOLUTE AUTO 0.64 K/mm3 (0.84-5.20); LYMPHOCYTES PERCENT AUTO 4 % (21-46); MONOCYTES ABSOLUTE AUTO 0.44 K/mm3 (0.16-1.47); MONOCYTES PERCENT AUTO 3 % (4-13); Mean Corpuscular HGB 28.6 pg (26.0-34.0); Mean Corpuscular HGB Conc 31.7 g/dL (31.5-36.5); Mean Corpuscular Volume 90 fL (80-100); Mean Platelet Volume 10.4 fL (9.1-12.4); NEUTROPHILS PERCENT AUTO 92 % (41-73); Platelet Count 250 K/mm3 (150-400); RDW Coefficient Variation 16.4 % (11.7-14.2); RDW Standard Deviation 54.3 fL (35.1-46.3); Red Blood Cell Count 4.97 M/mm3 (4.30-5.90); White Blood Cell Count 15.08 K/mm3 (4.00-11.30)
[2019-07-14] MEDS ORDERED: Florastor250 MG PO (20:11)
[2019-07-14] MEDS ORDERED: POTA10T PO (20:11)
[2019-07-14] MEDS ORDERED: FURO20 PO (20:12)
[2019-07-14] MEDS ORDERED: METF500 PO (20:12)
[2019-07-14] MEDS ORDERED: ALBU90OI INH (20:13)
[2019-07-14] MEDS ORDERED: Calcium Carbon500 MG PO (20:14)
[2019-07-14] MEDS ORDERED: Colace100 MG PO (20:15)
[2019-07-14 20:19] LABS: Albumin, Blood 2.6 g/dL (3.4-5.0); Albumin/Globulin Ratio 0.5 (0.8-1.8); Bilirubin, Total 1.8 mg/dL (0.1-1.0); Bun/Creatinine Ratio 26.7 (12.0-20.0); Calcium, Blood 8.4 mg/dL (8.5-10.1); Creatinine, Blood 1.35 mg/dL (0.60-1.20); Potassium, Blood 4.9 mmol/L (3.5-5.5); Total Protein, Blood 7.6 g/dL (6.4-8.2)
--- NOTE | 2019-07-14 23:00 | NUR ---
PATIENT ARRIVED TO ICU 7 VIA GURNEY FROM ED WITH DX OF SEPSIS. PATIENT AWAKENS TO VERBAL STIMULI, ABLE TO VERBALIZE NAME AND DATE OF , THAT HE IS IN [place]. NEEDING FREQUENT REMINDING OF BEING IN THE HOSPITAL. PATIENT ATTEMPTING TO ASSIST WITH REPOSITIONING. FALLING BACK TO SLEEP WHEN UNDISTURBED. PATIENT HAS RED RASH FROM HIPS DOWN TO MID THIGH. EXTENSIVE WOUNDS TO BOTH LOWER EXTREMITIES. SEE PICTURES. JAMIL WITH TEMP PROBE IN PLACE SHOWING TEMP OF 102.9 TYLENOL MA GIVEN AND PATIENT COVERED WITH SHEET ONLY.
[2019-07-15 03:29] LABS: BASOPHILS ABSOLUTE AUTO 0.06 K/mm3 (0.00-0.23); BASOPHILS PERCENT AUTO 0 % (0-2); Hematocrit 41.7 % (37.0-53.0); Hemoglobin 13.2 g/dL (13.5-17.5); LYMPHOCYTES ABSOLUTE AUTO 0.52 K/mm3 (0.84-5.20); LYMPHOCYTES PERCENT AUTO 3 % (21-46); MONOCYTES ABSOLUTE AUTO 0.32 K/mm3 (0.16-1.47); MONOCYTES PERCENT AUTO 2 % (4-13); Mean Corpuscular HGB 28.5 pg (26.0-34.0); Mean Corpuscular HGB Conc 31.7 g/dL (31.5-36.5); Mean Corpuscular Volume 90 fL (80-100); Mean Platelet Volume 10.4 fL (9.1-12.4); Platelet Count 223 K/mm3 (150-400); RDW Coefficient Variation 16.5 % (11.7-14.2); RDW Standard Deviation 54.4 fL (35.1-46.3); Red Blood Cell Count 4.63 M/mm3 (4.30-5.90)
[2019-07-15 03:32] LABS: EOSINOPHILS PERCENT AUTO 0 % (0-6); IMMATURE GRAN ABSOLUTE AUTO 0.26 K/mm3 (0.00-0.10); IMMATURE GRAN PERCENT AUTO 1 % (0-1); NEUTROPHILS ABSOLUTE AUTO 17.34 K/mm3 (1.96-9.15); NEUTROPHILS PERCENT AUTO 94 % (41-73)
[2019-07-15 03:51] LABS: Albumin, Blood 2.3 g/dL (3.4-5.0); Albumin/Globulin Ratio 0.5 (0.8-1.8); Bilirubin, Total 1.9 mg/dL (0.1-1.0); Bun/Creatinine Ratio 26.3 (12.0-20.0); Calcium, Blood 7.6 mg/dL (8.5-10.1); Creatinine, Blood 1.33 mg/dL (0.60-1.20); Globulin, Blood 4.6 g/dL (2.2-4.0); Total Protein, Blood 6.9 g/dL (6.4-8.2)
--- NOTE | 2019-07-15 06:00 | NUR ---
SUMMARY PATIENT SLEEPING WHEN UNDISTURBED, AWAKENS EASILY TO VERBAL STIMULI. FREQUENTLY ASKING FOR WATER WHEN AWAKE. ORAL CARE DONE WITH SUCTION TOOTH BRUSH AND ALSO WITH TOOTHETTES T/O NIGHT. WOUND CARE DONE ON ADMIT AFTER PICTURES TAKEN. PATIENT ASSISTING WITH REPOSITIONING WHEN ASKED YET REMAINS CONFUSED TO WHERE HE IS AND WHY.
--- NOTE | 2019-07-15 07:30 | NUR ---
Recieved report from Princess WANG. Patient resting in bed on right side and awakens easily for care. He sats mid to upper 90%'s on RA. He is alert and able to communicate his needs and holds a conversation. His LE elevated and blue chucks placed under for wound discharge. Wounds to LE, feet, and buttocks cleaned and dressed on Noc shift. Called [facility] in to Dr Schneider for wound acre after speaking with Dr Bloom. Patient has dawn draining to gravity clear yellow urine. He has LEJ, dressing intact and site WNL's and is infusing Zisyn and NS with 20meq K at 75ml/hr. Patient denies any current need for pain intervention.
--- NOTE | 2019-07-15 11:21 | NUR ---
Patient repostioned after Helping him with bed johnston, he had beauchamp liquid stool approx 300ml. Changed mepilex coccyx dressing. VSS
--- NOTE | 2019-07-15 13:30 | NUR ---
Patient refused PICC Line that Dr Rushing ordered. He states that that [employer] stated " only one patient has ever survived a PICC Line". Dr Schneider came by and stated that his coccyx wounds looked well and needed ortho consult for LE wounds. VSS. He tolerated water well and no signs of aspiration and he denied wanting any of cl liq. diet.
--- NOTE | 2019-07-15 15:29 | NUR ---
Went in and talked with patient again and discussed need for PICC line and he still refuses. Dr Rushing came by and talked with him and will try for PowerGlide. Will place Ortho consult for LE wounds.
--- NOTE | 2019-07-15 18:37 | NUR ---
Patient has tolerated snacks and liquids, pudding and coffee without difficulty. HGis systolic 90-100's most of shift. He remains on RA and sats mid to upper 90%'s. He denies any needs for pain interventions.
--- NOTE | 2019-07-15 19:30 | NUR ---
PATIENT RESTING IN BED WATCHING TV AND EATING DINNER. PATIENT A&O YET HAVING ODD CONVERSATIONS WITH SCATTERED THOUGHTS. PATIENT VERY FEARFUL REGARDING WHAT MEDICATIONS AND WHAT TREATMENTS HE IS RECEIVING. DRESSINGS INTACT TO BOTH LEGS AND COCCYX. PATIENT ASSISTING WITH REPOSITIONING IN BED. AFIB CONTINUES
[2019-07-16 03:30] LABS: BASOPHILS ABSOLUTE AUTO 0.03 K/mm3 (0.00-0.23); BASOPHILS PERCENT AUTO 0 % (0-2); EOSINOPHILS ABSOLUTE AUTO 0.01 K/mm3 (0.00-0.68); EOSINOPHILS PERCENT AUTO 0 % (0-6); Hemoglobin 12.7 g/dL (13.5-17.5); IMMATURE GRAN ABSOLUTE AUTO 0.05 K/mm3 (0.00-0.10); IMMATURE GRAN PERCENT AUTO 1 % (0-1); LYMPHOCYTES ABSOLUTE AUTO 1.24 K/mm3 (0.84-5.20); LYMPHOCYTES PERCENT AUTO 13 % (21-46); MONOCYTES ABSOLUTE AUTO 0.42 K/mm3 (0.16-1.47); MONOCYTES PERCENT AUTO 4 % (4-13); Mean Corpuscular HGB 28.5 pg (26.0-34.0); Mean Corpuscular HGB Conc 31.8 g/dL (31.5-36.5); Mean Corpuscular Volume 90 fL (80-100); Mean Platelet Volume 10.1 fL (9.1-12.4); NEUTROPHILS ABSOLUTE AUTO 7.97 K/mm3 (1.96-9.15); NEUTROPHILS PERCENT AUTO 82 % (41-73); Platelet Count 197 K/mm3 (150-400); RDW Coefficient Variation 16.4 % (11.7-14.2); RDW Standard Deviation 54.4 fL (35.1-46.3); Red Blood Cell Count 4.45 M/mm3 (4.30-5.90); White Blood Cell Count 9.72 K/mm3 (4.00-11.30)
[2019-07-16 03:47] LABS: Anion Gap 8 mmol/L (6-16); Blood Urea Nitrogen 34 mg/dL (8-24); Bun/Creatinine Ratio 30.1 (12.0-20.0); CO2, Blood 21 mmol/L (21-32); Calcium, Blood 7.7 mg/dL (8.5-10.1); Chloride, Blood 111 mmol/L (98-108); Creatinine, Blood 1.13 mg/dL (0.60-1.20); Glomerular Filtration Rate >60 (60-); Glucose, Blood 134 mg/dL (70-99); Potassium, Blood 3.6 mmol/L (3.5-5.5); Sodium, Blood 140 mmol/L (136-145)
--- NOTE | 2019-07-16 05:34 | NUR ---
PATIENT C/O SLIGHT NAUSEA AND REQUESTING MAALOX AND ALSO REQUESTING TYLENOL FOR GENERAL PAIN. TYLENOL CHANGED TO PO AND ZOFRAN GIVEN.
--- NOTE | 2019-07-16 06:42 | NUR ---
SUMMARY PATIENT AWAKE MOST OF THE NIGHT. A&O BUT CONTINUES WITH ODD CONVERSATIONS AT TIMES. PATIENT NOW SLEEPING RESP EVEN AND UNLABORED. REMAINS ON RA T/O NIGHT. ASSISTING WITH REPOSITIONING IN THE BED. AFIB CONTINUES LOW 100'S.
--- NOTE | 2019-07-16 07:00 | NUR ---
Recieved report from Princess WANG. Patient awake and able to communicate his needs. He is on RA and sats upper 90%. He has LEJ infusing NS with 20meq of K at 75ml/hr. I discussed is consult for wound care and he continues to refuse any care to LE's and has many reasons why. He has dawn draining to gravity cloudy sediment urine. He has bilateral LE wounds , see pic in chart that are bandaged.
--- NOTE | 2019-07-16 09:30 | NUR ---
He tolerated breakfast well and shows no signs of aspiration. He can hold a clear conversation and makes statements about care that he has read that make no sense at times, but is oriented to time , year, place, and events leading to admission. Spoke with Dr Avalos about refusal to wound care and placing line for care. VSS, remains on RA and sats upper 90%'s.
--- NOTE | 2019-07-16 10:14 | NUR ---
Joint visit with this RN and Eddie Hanley. Bedside nurse Joseph also present for much of the visit. Pt is refusion surgical procedure and ultrasound. Attempted to discuss advanced care planning. Educated on disease process including risk factors with refusing surgical interventions. Discussed hospice will need to be considered in the future. Eddie Hanley discusses the need for considering longwall shearer operator care. Page reports Pt's current home is in unlivable conditions and Pt can not move in with his sister. Pt in denial of both topics of discusses with Pt responding in flight of ideas. Spoke with Dr Avalos and discussed case. Palliative Care will remain available.
--- NOTE | 2019-07-16 11:30 | NUR ---
Dr Avalos came by and taalked with patient and called patient sister and addressed refusal of care to wounds. SS and Palliative care talked with him as well. He recieved bath and changed LE's dressing after cleaning. Patient will be changed to medical status.
--- NOTE | 2019-07-16 13:30 | NUR ---
Patient tolerating lunch. After he was done finished bath and changed linen. Repositioned to left side.VSS.
--- NOTE | 2019-07-16 15:25 | NUR ---
Patient has been resting and repositioned and pulled up in bed. He is currently med no tele and awaiting a room. He denies any pain and also denies any need for intervention for pain.
--- NOTE | 2019-07-16 16:35 | NUR ---
Gave report to Kendy Hurd RN and patient will be transferred up stairs to medical. Dr Bloom by to see patient for Dr Avalos and patient asked for him to leave and refused to get care.
--- NOTE | 2019-07-16 19:19 | NUR ---
PT. ARRIVED TO FLOOR FROM ICU-7 AT 1700 TODAY, NO NOTED CHANGES SINCE ARRIVAL TO FLOOR.
[2019-07-17 05:18] LABS: Hematocrit 41.7 % (37.0-53.0); Hemoglobin 13.3 g/dL (13.5-17.5); Mean Corpuscular HGB 28.3 pg (26.0-34.0); Mean Corpuscular HGB Conc 31.9 g/dL (31.5-36.5); Mean Corpuscular Volume 89 fL (80-100); Mean Platelet Volume 10.3 fL (9.1-12.4); Platelet Count 208 K/mm3 (150-400); RDW Coefficient Variation 16.3 % (11.7-14.2); RDW Standard Deviation 53.1 fL (35.1-46.3); White Blood Cell Count 10.33 K/mm3 (4.00-11.30)
[2019-07-17 05:31] LABS: Anion Gap 7 mmol/L (6-16); Blood Urea Nitrogen 31 mg/dL (8-24); Bun/Creatinine Ratio 31.3 (12.0-20.0); CO2, Blood 22 mmol/L (21-32); Calcium, Blood 7.9 mg/dL (8.5-10.1); Chloride, Blood 113 mmol/L (98-108); Creatinine, Blood 0.99 mg/dL (0.60-1.20); Glomerular Filtration Rate >60 (60-); Glucose, Blood 114 mg/dL (70-99); Potassium, Blood 3.5 mmol/L (3.5-5.5); Sodium, Blood 142 mmol/L (136-145)
[2019-07-17 06:14] LABS: BAND PERCENT MAN 5 % (0-8); BASOPHILS PERCENT MAN 1 % (0-2); EOSINOPHILS PERCENT MAN 0 % (0-6); LYMPHOCYTES ABSOLUTE MAN 1.34 K/mm3 (0.84-5.20); LYMPHOCYTES PERCENT MAN 13 % (21-46); MONOCYTES ABSOLUTE MAN 0.41 K/mm3 (0.16-1.47); MONOCYTES PERCENT MAN 4 % (4-13); NEUTROPHILS ABSOLUTE MAN 8.47 K/mm3 (1.96-9.15); SEG NEUTROPHILS PERCENT MAN 77 % (41-73); TOTAL CELLS COUNTED 100
--- NOTE | 2019-07-17 06:40 | NUR ---
SHIFT SUMMARY PT A/O NO C/O PAIN. C/O IV IN L FINGER SO D/C'D IV. STILL HAS EJ IV ON L SIDE. REPOSITIONED FROM SIDE TO SIDE. REFUSED PILLOWS UNDER LEGS. CREAM APPLIED TO RASH IN [place]ITLIN AREA ALONG WITH PILLOWCASES UNDER FOLDS. JAMIL DRAINING. HE WAS ABLE TO SLEEP ON AND OFF T/O NIGHT. CALL LIGHT IN REACH.
--- NOTE | 2019-07-17 19:12 | NUR ---
PT. UP IN CHAIR FOR DINNER VIA OVERHEAD LIFT. PT. HAS BEEN PLEASANT AND COOPERATIVE TODAY BUT HAVE GRANDIOSE CONVERSATIONS. ORDERS ON FRONT OF CHART FOR TRANSFER BACK TO [facility]. IV IN LEFT EJ REMOVED IT WASN'T PATENT. ANTIBIOTICS CHANGED TO PO BY DR. WEBB. POSSIBLE DISCHARGE TO [facility] TOMORROW, DISCHARGE ORDERS ON CHART.
--- NOTE | 2019-07-18 05:22 | NUR ---
SHIFT SUMMARY PT IN RECLINER ALL NOC SLEEPING IN RECLINER. ASKED IF HE WANTED TO BE PUT BACK INTO BED BUT HE WANTED TO STAY IN CHAIR. NO C/O PAIN. BILAT LEG WOUNDS HAVE FOUL ODOR. USING URINAL. HE WAS ABLE TO SLEEP T/O NIGHT. CALL LIGHT IN REACH.
--- NOTE | 2019-07-18 17:37 | NUR ---
PT HAS NO IV OR TELE. PT D/C TO [facility] AT 1730 VIA TRANSPORT TO [facility]. REPORT CALLED TO NORRIS WANG
== END 2019-07-18 17:29 | DRG 871 ==
LOC: ER 18:55 → ICUE 21:40 → MEDS 21:40 → ICUW 21:40 → ICUE 22:59 → MEDS 07-16 17:00
PROVIDERS: Emergency Medicine; Hospitalist; Internal Medicine; Nurse Practitioner Acute Care; ADMIT Hospitalist
DX: A40.0 Sepsis due to streptococcus, group A (principal); G92 Toxic encephalopathy; N17.9 Acute kidney failure, unspecified; E66.2 Morbid (severe) obesity with alveolar hypoventilation; I48.20 Chronic atrial fibrillation, unspecified; M86.60 Other chronic osteomyelitis, unspecified site; N39.0 Urinary tract infection, site not specified; I50.42 Chronic combined systolic (congestive) and diastolic (congestive) heart failure; I13.0 Hypertensive heart and chronic kidney disease with heart failure and stage 1 through stage 4 chronic kidney disease, or unspecified chronic kidney disease; L03.115 Cellulitis of right lower limb; Z68.43 Body mass index [BMI] 50.0-59.9, adult; R65.20 Severe sepsis without septic shock; I87.2 Venous insufficiency (chronic) (peripheral); F20.9 Schizophrenia, unspecified; E11.621 Type 2 diabetes mellitus with foot ulcer; E11.51 Type 2 diabetes mellitus with diabetic peripheral angiopathy without gangrene; E11.22 Type 2 diabetes mellitus with diabetic chronic kidney disease; N18.3 Chronic kidney disease, stage 3 (moderate); J44.9 Chronic obstructive pulmonary disease, unspecified; Z89.429 Acquired absence of other toe(s), unspecified side; Z91.14 Patient's other noncompliance with medication regimen; Z87.891 Personal history of nicotine dependence
CPT/HCPCS: 36415; 51702; 71045; 80048; 80053; 81001; 82947; 83605; 83880; 85025; 87040; 87086; 87147; 93005; 93010; 94760; 96365-59; 96366-59; 96367-59; 96375-59; 99285-25; A9270; J0290; J1650; J1940; J2405; J2543; J3370; J3480; J7030; J7040; J7050

== ENCOUNTER → 2019-09-15 | Outpatient (CLI) | payer MEDICARE, OTHER ==
[~2019-09-15] MED LIST changes: +ALBU90OI INH; +Calcium Carbon500 MG PO; +Colace100 MG PO; +FURO20 PO; +POTA10T PO
[2019-09-15 10:15] LABS: BASOPHILS ABSOLUTE AUTO 0.13 K/mm3 (0.00-0.23); BASOPHILS PERCENT AUTO 1 % (0-2); EOSINOPHILS ABSOLUTE AUTO 0.02 K/mm3 (0.00-0.68); EOSINOPHILS PERCENT AUTO 0 % (0-6); Hematocrit 33.5 % (37.0-53.0); Hemoglobin 10.8 g/dL (13.5-17.5); IMMATURE GRAN ABSOLUTE AUTO 0.55 K/mm3 (0.00-0.10); IMMATURE GRAN PERCENT AUTO 3 % (0-1); LYMPHOCYTES ABSOLUTE AUTO 2.39 K/mm3 (0.84-5.20); LYMPHOCYTES PERCENT AUTO 14 % (21-46); MONOCYTES ABSOLUTE AUTO 0.86 K/mm3 (0.16-1.47); MONOCYTES PERCENT AUTO 5 % (4-13); Mean Corpuscular HGB 29.2 pg (26.0-34.0); Mean Corpuscular HGB Conc 32.2 g/dL (31.5-36.5); Mean Corpuscular Volume 91 fL (80-100); Mean Platelet Volume 10.5 fL (9.1-12.4); NEUTROPHILS ABSOLUTE AUTO 12.64 K/mm3 (1.96-9.15); NEUTROPHILS PERCENT AUTO 76 % (41-73); Platelet Count 356 K/mm3 (150-400); RDW Coefficient Variation 16.7 % (11.7-14.2); RDW Standard Deviation 55.8 fL (35.1-46.3); White Blood Cell Count 16.59 K/mm3 (4.00-11.30)
[2019-09-15 10:54] LABS: Alanine Aminotransfer (ALT/SGP 12 U/L (12-78); Albumin, Blood 2.3 g/dL (3.4-5.0); Albumin/Globulin Ratio 0.4 (0.8-1.8); Alk Phos 233 U/L (50-136); Anion Gap 8 mmol/L (6-16); Aspartate Aminotrans (AST/SGOT 12 U/L (12-37); Bilirubin, Total 1.3 mg/dL (0.1-1.0); Blood Urea Nitrogen 25 mg/dL (8-24); Bun/Creatinine Ratio 26.9 (12.0-20.0); CO2, Blood 24 mmol/L (21-32); Calcium, Blood 8.1 mg/dL (8.5-10.1); Chloride, Blood 103 mmol/L (98-108); Creatinine, Blood 0.93 mg/dL (0.60-1.20); Globulin, Blood 5.3 g/dL (2.2-4.0); Glomerular Filtration Rate >60 (60-); Glucose, Blood 65 mg/dL (70-99); Potassium, Blood 3.8 mmol/L (3.5-5.5); Sodium, Blood 135 mmol/L (136-145); Total Protein, Blood 7.6 g/dL (6.4-8.2)
[2019-09-16 10:10] LABS: Bilirubin, Urine Neg (Neg); Blood, Urine 4+ (Neg); Glucose Qualitative, Urine Neg (Neg); Ketones, Urine Neg (Neg); Leukocyte Esterase, Urine Neg (Neg); Nitrite, Urine Neg (Neg); Protein, Urine 1+ (Neg); Specific Gravity, Urine 1.015 (1.003-1.022); Urobilinogen, Urine NORM (Normal)
[2019-09-16 10:43] LABS: Appearance, Urine Clear (Clear); Color, Urine Yellow (P-Yellow)
[2019-09-16 10:45] LABS: Bacteria Mod /hpf; Squamous Epithelial Cells Rare /hpf (Few); White Blood Cells, Urine 0-2 /hpf (0-5)
== END | disposition home or self-care (01) ==
LOC: LAB RH 08:06 → EDSTATUS 13:54 → LAB RH 13:55
DX: I11.0 Hypertensive heart disease with heart failure (principal); I50.40 Unspecified combined systolic (congestive) and diastolic (congestive) heart failure; D64.9 Anemia, unspecified; E11.621 Type 2 diabetes mellitus with foot ulcer
CPT/HCPCS: 36415; 80053; 81001; 85025; 85651

== ENCOUNTER → 2019-09-29 | Outpatient (CLI) | payer MEDICARE, OTHER ==
[2019-09-29 10:17] LABS: Hematocrit 41.9 % (37.0-53.0); Hemoglobin 13.4 g/dL (13.5-17.5); Mean Corpuscular HGB 29.7 pg (26.0-34.0); Mean Corpuscular Volume 93 fL (80-100); Mean Platelet Volume 9.6 fL (9.1-12.4); Platelet Count 441 K/mm3 (150-400); RDW Coefficient Variation 16.3 % (11.7-14.2); RDW Standard Deviation 55.8 fL (35.1-46.3); Red Blood Cell Count 4.51 M/mm3 (4.30-5.90)
== END | disposition home or self-care (01) ==
LOC: LAB RH 08:23 → EDSTATUS 15:26 → LAB RH 15:27
DX: M86.671 Other chronic osteomyelitis, right ankle and foot (principal)
CPT/HCPCS: 36415; 85027; 85651

== ENCOUNTER → 2019-10-16 | Outpatient (CLI) | payer MEDICARE, OTHER ==
[2019-10-16 10:27] LABS: Hemoglobin 12.9 g/dL (13.5-17.5); Mean Corpuscular HGB 30.6 pg (26.0-34.0); Mean Corpuscular HGB Conc 33.1 g/dL (31.5-36.5); Mean Corpuscular Volume 93 fL (80-100); Mean Platelet Volume 9.7 fL (9.1-12.4); Platelet Count 297 K/mm3 (150-400); RDW Coefficient Variation 15.8 % (11.7-14.2); RDW Standard Deviation 53.2 fL (35.1-46.3); Red Blood Cell Count 4.21 M/mm3 (4.30-5.90); White Blood Cell Count 6.96 K/mm3 (4.00-11.30)
[2019-10-16 13:06] LABS: Anion Gap 4 mmol/L (6-16); Blood Urea Nitrogen 34 mg/dL (8-24); C-REACTIVE PROTEIN, EXT RANGE <0.290 mg/dL (0.000-0.300); CO2, Blood 25 mmol/L (21-32); Calcium, Blood 9.6 mg/dL (8.5-10.1); Chloride, Blood 107 mmol/L (98-108); Glucose, Blood 101 mg/dL (70-99); Potassium, Blood 4.1 mmol/L (3.5-5.5); Sodium, Blood 136 mmol/L (136-145)
[2019-10-16 13:08] LABS: Bun/Creatinine Ratio 26.4 (12.0-20.0); Creatinine, Blood 1.29 mg/dL (0.60-1.20); Glomerular Filtration Rate 56 (60-)
== END | disposition home or self-care (01) ==
LOC: LAB RH 08:20 → EDSTATUS 13:06 → LAB RH 13:07
PROVIDERS: Family Medicine
DX: M86.671 Other chronic osteomyelitis, right ankle and foot (principal)
CPT/HCPCS: 36415; 80048; 85027; 85651; 86140

== ENCOUNTER → 2019-10-21 | Outpatient (CLI) | payer OTHER | END | disposition home or self-care (01) | LOC: LAB RH 08:46 → EDSTATUS 14:18 | DX: E11.9 Type 2 diabetes mellitus without complications (principal) | CPT/HCPCS: 36415; 83036 ==

== ENCOUNTER → 2019-11-19 | Outpatient (CLI) | payer OTHER ==
[2019-11-19 18:13] LABS: BASOPHILS ABSOLUTE AUTO 0.17 K/mm3 (0.00-0.23); BASOPHILS PERCENT AUTO 2 % (0-2); EOSINOPHILS ABSOLUTE AUTO 0.19 K/mm3 (0.00-0.68); EOSINOPHILS PERCENT AUTO 3 % (0-6); Hematocrit 39.5 % (37.0-53.0); Hemoglobin 12.9 g/dL (13.5-17.5); IMMATURE GRAN ABSOLUTE AUTO 0.06 K/mm3 (0.00-0.10); IMMATURE GRAN PERCENT AUTO 1 % (0-1); LYMPHOCYTES ABSOLUTE AUTO 2.32 K/mm3 (0.84-5.20); LYMPHOCYTES PERCENT AUTO 30 % (21-46); MONOCYTES ABSOLUTE AUTO 0.57 K/mm3 (0.16-1.47); MONOCYTES PERCENT AUTO 8 % (4-13); Mean Corpuscular HGB 31.5 pg (26.0-34.0); Mean Corpuscular HGB Conc 32.7 g/dL (31.5-36.5); Mean Corpuscular Volume 97 fL (80-100); Mean Platelet Volume 9.5 fL (9.1-12.4); NEUTROPHILS ABSOLUTE AUTO 4.33 K/mm3 (1.96-9.15); NEUTROPHILS PERCENT AUTO 57 % (41-73); Platelet Count 305 K/mm3 (150-400); RDW Coefficient Variation 13.8 % (11.7-14.2); Red Blood Cell Count 4.09 M/mm3 (4.30-5.90); White Blood Cell Count 7.64 K/mm3 (4.00-11.30)
[2019-11-19 18:42] LABS: Bun/Creatinine Ratio 24.8 (12.0-20.0); Calcium, Blood 9.1 mg/dL (8.5-10.1); Creatinine, Blood 1.57 mg/dL (0.60-1.20); Potassium, Blood 4.4 mmol/L (3.5-5.5)
== END | disposition home or self-care (01) ==
LOC: EDSTATUS 13:35 → LAB RH 16:38
PROVIDERS: Family Medicine
DX: R68.89 Other general symptoms and signs (principal); R79.89 Other specified abnormal findings of blood chemistry; R70.0 Elevated erythrocyte sedimentation rate
CPT/HCPCS: 80048; 85025; 85651

== ENCOUNTER → 2019-12-16 | Outpatient (CLI) | payer OTHER ==
[2019-12-16 08:55] LABS: Hematocrit 36.6 % (37.0-53.0); Hemoglobin 12.4 g/dL (13.5-17.5); Mean Corpuscular HGB Conc 33.9 g/dL (31.5-36.5); Mean Corpuscular Volume 94 fL (80-100); Mean Platelet Volume 9.9 fL (9.1-12.4); Platelet Count 253 K/mm3 (150-400); RDW Coefficient Variation 12.5 % (11.7-14.2); RDW Standard Deviation 43.3 fL (35.1-46.3); Red Blood Cell Count 3.88 M/mm3 (4.30-5.90); White Blood Cell Count 18.44 K/mm3 (4.00-11.30)
[2019-12-16 09:01] LABS: Albumin, Blood 3.1 g/dL (3.4-5.0); Albumin/Globulin Ratio 0.6 (0.8-1.8); Bilirubin, Total 2.2 mg/dL (0.1-1.0); Bun/Creatinine Ratio 35.1 (12.0-20.0); Calcium, Blood 8.4 mg/dL (8.5-10.1); Creatinine, Blood 1.34 mg/dL (0.60-1.20); Globulin, Blood 4.9 g/dL (2.2-4.0); Potassium, Blood 3.6 mmol/L (3.5-5.5)
== END | disposition home or self-care (01) ==
LOC: LAB RH 07:20 → EDSTATUS 13:18
PROVIDERS: Family Medicine
DX: E11.621 Type 2 diabetes mellitus with foot ulcer (principal); I48.0 Paroxysmal atrial fibrillation
CPT/HCPCS: 80053; 85027

== ENCOUNTER 2020-01-01 00:13 | Day surgery (SDC) | payer OTHER | END 2020-01-01 23:17 | disposition home or self-care (01) | LOC: WOUND 00:13 | DX: E11.621 Type 2 diabetes mellitus with foot ulcer (principal); M86.671 Other chronic osteomyelitis, right ankle and foot; E11.42 Type 2 diabetes mellitus with diabetic polyneuropathy; E78.5 Hyperlipidemia, unspecified; J45.909 Unspecified asthma, uncomplicated; E66.01 Morbid (severe) obesity due to excess calories; I10 Essential (primary) hypertension; Z87.891 Personal history of nicotine dependence; Z88.0 Allergy status to penicillin; Z68.37 Body mass index [BMI] 37.0-37.9, adult; L97.515 Non-pressure chronic ulcer of other part of right foot with muscle involvement without evidence of necrosis; L97.412 Non-pressure chronic ulcer of right heel and midfoot with fat layer exposed; L97.429 Non-pressure chronic ulcer of left heel and midfoot with unspecified severity; Z79.899 Other long term (current) drug therapy; Z79.84 Long term (current) use of oral hypoglycemic drugs | CPT/HCPCS: 87071; 87075; 87147; 87205; G0463 ==

== ENCOUNTER 2020-01-08 00:20 | Day surgery (SDC) | payer OTHER | END 2020-01-08 23:54 | disposition home or self-care (01) | LOC: WOUND 00:20 | DX: M86.671 Other chronic osteomyelitis, right ankle and foot (principal); E11.621 Type 2 diabetes mellitus with foot ulcer; L97.415 Non-pressure chronic ulcer of right heel and midfoot with muscle involvement without evidence of necrosis; Z79.84 Long term (current) use of oral hypoglycemic drugs ==

== ENCOUNTER 2020-01-14 00:20 | Day surgery (SDC) | payer OTHER | END 2020-01-14 22:48 | disposition home or self-care (01) | LOC: WOUND 00:20 | DX: M86.671 Other chronic osteomyelitis, right ankle and foot (principal); E11.621 Type 2 diabetes mellitus with foot ulcer; E78.5 Hyperlipidemia, unspecified; E11.42 Type 2 diabetes mellitus with diabetic polyneuropathy; I10 Essential (primary) hypertension; J45.909 Unspecified asthma, uncomplicated; E66.01 Morbid (severe) obesity due to excess calories; L97.515 Non-pressure chronic ulcer of other part of right foot with muscle involvement without evidence of necrosis; Z68.37 Body mass index [BMI] 37.0-37.9, adult; Z79.899 Other long term (current) drug therapy; Z79.84 Long term (current) use of oral hypoglycemic drugs ==

== ENCOUNTER → 2020-01-14 | Outpatient (CLI) | payer OTHER ==
[2020-01-14 18:10] LABS: BASOPHILS ABSOLUTE AUTO 0.12 K/mm3 (0.00-0.23); BASOPHILS PERCENT AUTO 1 % (0-2); EOSINOPHILS ABSOLUTE AUTO 0.29 K/mm3 (0.00-0.68); EOSINOPHILS PERCENT AUTO 3 % (0-6); Hemoglobin 13.4 g/dL (13.5-17.5); IMMATURE GRAN ABSOLUTE AUTO 0.15 K/mm3 (0.00-0.10); IMMATURE GRAN PERCENT AUTO 2 % (0-1); LYMPHOCYTES ABSOLUTE AUTO 2.57 K/mm3 (0.84-5.20); LYMPHOCYTES PERCENT AUTO 29 % (21-46); MONOCYTES ABSOLUTE AUTO 0.42 K/mm3 (0.16-1.47); MONOCYTES PERCENT AUTO 5 % (4-13); Mean Corpuscular HGB 31.5 pg (26.0-34.0); Mean Corpuscular HGB Conc 33.5 g/dL (31.5-36.5); Mean Corpuscular Volume 94 fL (80-100); Mean Platelet Volume 8.8 fL (9.1-12.4); NEUTROPHILS ABSOLUTE AUTO 5.44 K/mm3 (1.96-9.15); NEUTROPHILS PERCENT AUTO 61 % (41-73); Platelet Count 287 K/mm3 (150-400); RDW Coefficient Variation 12.3 % (11.7-14.2); Red Blood Cell Count 4.26 M/mm3 (4.30-5.90); White Blood Cell Count 8.99 K/mm3 (4.00-11.30)
== END | disposition home or self-care (01) ==
LOC: EDSTATUS 12:09 → LAB RH 18:02
PROVIDERS: Family Medicine
DX: M86.671 Other chronic osteomyelitis, right ankle and foot (principal)
CPT/HCPCS: 85025; 85651; 86140

== ENCOUNTER 2020-01-21 00:10 | Day surgery (SDC) | payer OTHER | END 2020-01-21 22:58 | disposition home or self-care (01) | LOC: WOUND 00:10 | DX: E11.621 Type 2 diabetes mellitus with foot ulcer (principal); M86.671 Other chronic osteomyelitis, right ankle and foot; E78.5 Hyperlipidemia, unspecified; E11.42 Type 2 diabetes mellitus with diabetic polyneuropathy; I10 Essential (primary) hypertension; J45.909 Unspecified asthma, uncomplicated; E66.01 Morbid (severe) obesity due to excess calories; L97.515 Non-pressure chronic ulcer of other part of right foot with muscle involvement without evidence of necrosis; L97.412 Non-pressure chronic ulcer of right heel and midfoot with fat layer exposed; Z79.899 Other long term (current) drug therapy; Z79.84 Long term (current) use of oral hypoglycemic drugs ==

== ENCOUNTER → 2020-01-23 | Outpatient (CLI) | payer OTHER ==
[2020-01-23 17:36] LABS: Anion Gap 8 mmol/L (6-16); Blood Urea Nitrogen 29 mg/dL (8-24); Bun/Creatinine Ratio 30.4 (12.0-20.0); CO2, Blood 24 mmol/L (21-32); Calcium, Blood 9.1 mg/dL (8.5-10.1); Chloride, Blood 103 mmol/L (98-108); Creatinine, Blood 0.95 mg/dL (0.60-1.20); Glomerular Filtration Rate >60 (60-); Glucose, Blood 150 mg/dL (70-99); Potassium, Blood 3.9 mmol/L (3.5-5.5); Sodium, Blood 135 mmol/L (136-145)
== END | disposition home or self-care (01) ==
LOC: EDSTATUS 13:17 → LAB RH 14:43
PROVIDERS: Family Medicine
DX: M86.671 Other chronic osteomyelitis, right ankle and foot (principal); I50.40 Unspecified combined systolic (congestive) and diastolic (congestive) heart failure
CPT/HCPCS: 80048

== ENCOUNTER → 2020-01-24 | Outpatient (CLI) | payer OTHER | END | disposition home or self-care (01) | LOC: LAB RH 16:55 | DX: R79.89 Other specified abnormal findings of blood chemistry (principal) | CPT/HCPCS: 83880 ==

== ENCOUNTER 2020-01-28 00:26 | Day surgery (SDC) | payer OTHER | END 2020-01-28 23:04 | disposition home or self-care (01) | LOC: WOUND 00:26 | DX: E11.621 Type 2 diabetes mellitus with foot ulcer (principal); M86.671 Other chronic osteomyelitis, right ankle and foot; R93.1 Abnormal findings on diagnostic imaging of heart and coronary circulation; E11.42 Type 2 diabetes mellitus with diabetic polyneuropathy; E66.01 Morbid (severe) obesity due to excess calories; J45.909 Unspecified asthma, uncomplicated; E78.5 Hyperlipidemia, unspecified; I10 Essential (primary) hypertension; Z68.37 Body mass index [BMI] 37.0-37.9, adult; L97.515 Non-pressure chronic ulcer of other part of right foot with muscle involvement without evidence of necrosis; L97.412 Non-pressure chronic ulcer of right heel and midfoot with fat layer exposed; L97.429 Non-pressure chronic ulcer of left heel and midfoot with unspecified severity; Z79.899 Other long term (current) drug therapy; Z79.84 Long term (current) use of oral hypoglycemic drugs ==

== ENCOUNTER 2020-02-04 00:33 | Day surgery (SDC) | payer OTHER | END 2020-02-04 23:17 | disposition home or self-care (01) | LOC: WOUND 00:33 | DX: E11.621 Type 2 diabetes mellitus with foot ulcer (principal); L97.512 Non-pressure chronic ulcer of other part of right foot with fat layer exposed; M86.671 Other chronic osteomyelitis, right ankle and foot; R93.1 Abnormal findings on diagnostic imaging of heart and coronary circulation | CPT/HCPCS: 87071; 87075; 87077; 87147; 87186; 87205 ==

== ENCOUNTER 2020-02-11 00:10 | Day surgery (SDC) | payer OTHER | END 2020-02-11 23:05 | disposition home or self-care (01) | LOC: WOUND 00:10 | DX: E11.621 Type 2 diabetes mellitus with foot ulcer (principal); L97.515 Non-pressure chronic ulcer of other part of right foot with muscle involvement without evidence of necrosis; L97.512 Non-pressure chronic ulcer of other part of right foot with fat layer exposed; L97.529 Non-pressure chronic ulcer of other part of left foot with unspecified severity; M86.671 Other chronic osteomyelitis, right ankle and foot; R93.1 Abnormal findings on diagnostic imaging of heart and coronary circulation ==

== ENCOUNTER 2020-04-28 00:36 | Day surgery (SDC) | payer OTHER | END 2020-04-28 22:51 | disposition home or self-care (01) | LOC: WOUND 00:36 | DX: E11.621 Type 2 diabetes mellitus with foot ulcer (principal); M86.671 Other chronic osteomyelitis, right ankle and foot; R93.1 Abnormal findings on diagnostic imaging of heart and coronary circulation; E11.59 Type 2 diabetes mellitus with other circulatory complications; E11.42 Type 2 diabetes mellitus with diabetic polyneuropathy; I87.2 Venous insufficiency (chronic) (peripheral); I10 Essential (primary) hypertension; E66.01 Morbid (severe) obesity due to excess calories; E78.5 Hyperlipidemia, unspecified; L97.429 Non-pressure chronic ulcer of left heel and midfoot with unspecified severity; L97.412 Non-pressure chronic ulcer of right heel and midfoot with fat layer exposed; Z68.37 Body mass index [BMI] 37.0-37.9, adult; Z79.899 Other long term (current) drug therapy; Z79.84 Long term (current) use of oral hypoglycemic drugs ==

== ENCOUNTER → 2020-04-28 | Outpatient (CLI) | payer OTHER ==
[2020-04-28 15:15] LABS: Hematocrit 42.4 % (37.0-53.0); Hemoglobin 14.2 g/dL (13.5-17.5); Mean Corpuscular HGB 30.3 pg (26.0-34.0); Mean Corpuscular HGB Conc 33.5 g/dL (31.5-36.5); Mean Corpuscular Volume 91 fL (80-100); Mean Platelet Volume 10.9 fL (9.1-12.4); Platelet Count 291 K/mm3 (150-400); RDW Coefficient Variation 12.7 % (11.7-14.2); RDW Standard Deviation 41.6 fL (35.1-46.3); Red Blood Cell Count 4.68 M/mm3 (4.30-5.90); White Blood Cell Count 9.98 K/mm3 (4.00-11.30)
== END | disposition home or self-care (01) ==
LOC: LAB RH 13:03 → EDSTATUS 13:37
PROVIDERS: Nurse Practitioner Family
DX: E11.621 Type 2 diabetes mellitus with foot ulcer (principal); L97.509 Non-pressure chronic ulcer of other part of unspecified foot with unspecified severity; I50.40 Unspecified combined systolic (congestive) and diastolic (congestive) heart failure
CPT/HCPCS: 83036; 85027; 85651; 86140

== ENCOUNTER 2020-05-05 00:24 | Day surgery (SDC) | payer OTHER | END 2020-05-05 22:43 | disposition home or self-care (01) | LOC: WOUND 00:24 | DX: E11.621 Type 2 diabetes mellitus with foot ulcer (principal); M86.671 Other chronic osteomyelitis, right ankle and foot; R93.1 Abnormal findings on diagnostic imaging of heart and coronary circulation; E11.59 Type 2 diabetes mellitus with other circulatory complications; I87.2 Venous insufficiency (chronic) (peripheral); L97.509 Non-pressure chronic ulcer of other part of unspecified foot with unspecified severity; Z79.84 Long term (current) use of oral hypoglycemic drugs | CPT/HCPCS: G0463 ==

== ENCOUNTER 2020-05-21 00:45 | Day surgery (SDC) | payer OTHER | END 2020-05-21 12:00 | disposition home or self-care (01) | LOC: WOUND 00:45 | DX: T87.53 Necrosis of amputation stump, right lower extremity (principal); E11.621 Type 2 diabetes mellitus with foot ulcer; L97.512 Non-pressure chronic ulcer of other part of right foot with fat layer exposed; E11.622 Type 2 diabetes mellitus with other skin ulcer; L97.811 Non-pressure chronic ulcer of other part of right lower leg limited to breakdown of skin; L97.522 Non-pressure chronic ulcer of other part of left foot with fat layer exposed; E11.52 Type 2 diabetes mellitus with diabetic peripheral angiopathy with gangrene; I96 Gangrene, not elsewhere classified; E78.5 Hyperlipidemia, unspecified; J45.909 Unspecified asthma, uncomplicated; E11.42 Type 2 diabetes mellitus with diabetic polyneuropathy; E11.59 Type 2 diabetes mellitus with other circulatory complications; I87.2 Venous insufficiency (chronic) (peripheral); E11.36 Type 2 diabetes mellitus with diabetic cataract; H26.9 Unspecified cataract; I89.0 Lymphedema, not elsewhere classified; M19.90 Unspecified osteoarthritis, unspecified site; I11.0 Hypertensive heart disease with heart failure; I50.9 Heart failure, unspecified; E11.69 Type 2 diabetes mellitus with other specified complication; M86.171 Other acute osteomyelitis, right ankle and foot; E66.01 Morbid (severe) obesity due to excess calories; Z89.411 Acquired absence of right great toe; Z89.421 Acquired absence of other right toe(s); Z68.37 Body mass index [BMI] 37.0-37.9, adult; Z79.84 Long term (current) use of oral hypoglycemic drugs; Z79.899 Other long term (current) drug therapy; Y83.5 Amputation of limb(s) as the cause of abnormal reaction of the patient, or of later complication, without mention of misadventure at the time of the procedure ==

== ENCOUNTER 2020-05-27 00:08 | Day surgery (SDC) | payer OTHER | END 2020-05-27 22:43 | disposition home or self-care (01) | LOC: WOUND 00:08 | DX: T87.53 Necrosis of amputation stump, right lower extremity (principal); E11.621 Type 2 diabetes mellitus with foot ulcer; L97.513 Non-pressure chronic ulcer of other part of right foot with necrosis of muscle; E11.622 Type 2 diabetes mellitus with other skin ulcer; L97.811 Non-pressure chronic ulcer of other part of right lower leg limited to breakdown of skin; E11.59 Type 2 diabetes mellitus with other circulatory complications; I87.2 Venous insufficiency (chronic) (peripheral); E11.69 Type 2 diabetes mellitus with other specified complication; M86.671 Other chronic osteomyelitis, right ankle and foot; E11.36 Type 2 diabetes mellitus with diabetic cataract; H26.9 Unspecified cataract; I89.0 Lymphedema, not elsewhere classified; J45.909 Unspecified asthma, uncomplicated; I49.9 Cardiac arrhythmia, unspecified; I11.0 Hypertensive heart disease with heart failure; I50.9 Heart failure, unspecified; E11.52 Type 2 diabetes mellitus with diabetic peripheral angiopathy with gangrene; I96 Gangrene, not elsewhere classified; M19.90 Unspecified osteoarthritis, unspecified site; E11.40 Type 2 diabetes mellitus with diabetic neuropathy, unspecified; Z79.84 Long term (current) use of oral hypoglycemic drugs; Z79.899 Other long term (current) drug therapy; Y83.5 Amputation of limb(s) as the cause of abnormal reaction of the patient, or of later complication, without mention of misadventure at the time of the procedure | CPT/HCPCS: G0463 ==

== ENCOUNTER → 2020-05-29 | Outpatient (CLI) | payer OTHER ==
[2020-05-29 21:04] LABS: BASOPHILS ABSOLUTE AUTO 0.11 K/mm3 (0.00-0.23); BASOPHILS PERCENT AUTO 1 % (0-2); EOSINOPHILS ABSOLUTE AUTO 0.08 K/mm3 (0.00-0.68); EOSINOPHILS PERCENT AUTO 1 % (0-6); Hematocrit 39.2 % (37.0-53.0); Hemoglobin 13.3 g/dL (13.5-17.5); IMMATURE GRAN ABSOLUTE AUTO 0.04 K/mm3 (0.00-0.10); IMMATURE GRAN PERCENT AUTO 0 % (0-1); LYMPHOCYTES ABSOLUTE AUTO 1.77 K/mm3 (0.84-5.20); LYMPHOCYTES PERCENT AUTO 19 % (21-46); MONOCYTES ABSOLUTE AUTO 0.58 K/mm3 (0.16-1.47); MONOCYTES PERCENT AUTO 6 % (4-13); Mean Corpuscular HGB 30.8 pg (26.0-34.0); Mean Corpuscular HGB Conc 33.9 g/dL (31.5-36.5); Mean Corpuscular Volume 91 fL (80-100); Mean Platelet Volume 10.1 fL (9.1-12.4); NEUTROPHILS PERCENT AUTO 72 % (41-73); Platelet Count 257 K/mm3 (150-400); RDW Coefficient Variation 12.8 % (11.7-14.2); RDW Standard Deviation 42.5 fL (35.1-46.3); Red Blood Cell Count 4.32 M/mm3 (4.30-5.90); White Blood Cell Count 9.18 K/mm3 (4.00-11.30)
[2020-05-29 21:19] LABS: Anion Gap 7 mmol/L (6-16); Blood Urea Nitrogen 28 mg/dL (8-24); Bun/Creatinine Ratio 25.9 (12.0-20.0); CO2, Blood 22 mmol/L (21-32); Calcium, Blood 8.7 mg/dL (8.5-10.1); Chloride, Blood 106 mmol/L (98-108); Creatinine, Blood 1.08 mg/dL (0.60-1.20); Glomerular Filtration Rate >60 (60-); Glucose, Blood 182 mg/dL (70-99); Potassium, Blood 3.7 mmol/L (3.5-5.5); Sodium, Blood 135 mmol/L (136-145)
== END | disposition home or self-care (01) ==
LOC: EDSTATUS 14:37 → LAB RH 20:58
PROVIDERS: Family Medicine
DX: M86.671 Other chronic osteomyelitis, right ankle and foot (principal)
CPT/HCPCS: 80048; 85025; 87040

== ENCOUNTER 2020-06-02 00:32 | Day surgery (SDC) | payer OTHER | END 2020-06-02 22:43 | disposition home or self-care (01) | LOC: WOUND 00:32 | DX: E11.621 Type 2 diabetes mellitus with foot ulcer (principal); E11.59 Type 2 diabetes mellitus with other circulatory complications; M86.671 Other chronic osteomyelitis, right ankle and foot; I87.2 Venous insufficiency (chronic) (peripheral); L97.419 Non-pressure chronic ulcer of right heel and midfoot with unspecified severity; Z79.84 Long term (current) use of oral hypoglycemic drugs | CPT/HCPCS: G0463 ==

== ENCOUNTER 2020-06-07 00:42 | Day surgery (SDC) | payer OTHER | END 2020-06-07 23:09 | disposition home or self-care (01) | LOC: WOUND 00:42 | DX: E11.621 Type 2 diabetes mellitus with foot ulcer (principal); M86.671 Other chronic osteomyelitis, right ankle and foot; R93.1 Abnormal findings on diagnostic imaging of heart and coronary circulation; E11.59 Type 2 diabetes mellitus with other circulatory complications; I87.2 Venous insufficiency (chronic) (peripheral); E11.42 Type 2 diabetes mellitus with diabetic polyneuropathy; E66.01 Morbid (severe) obesity due to excess calories; J45.909 Unspecified asthma, uncomplicated; E78.5 Hyperlipidemia, unspecified; I10 Essential (primary) hypertension; Z68.37 Body mass index [BMI] 37.0-37.9, adult; L97.412 Non-pressure chronic ulcer of right heel and midfoot with fat layer exposed; Z79.899 Other long term (current) drug therapy; Z79.84 Long term (current) use of oral hypoglycemic drugs ==

== ENCOUNTER 2020-06-14 00:39 | Day surgery (SDC) | payer OTHER | END 2020-06-14 22:47 | disposition home or self-care (01) | LOC: WOUND 00:39 | DX: E11.621 Type 2 diabetes mellitus with foot ulcer (principal); M86.671 Other chronic osteomyelitis, right ankle and foot; E11.51 Type 2 diabetes mellitus with diabetic peripheral angiopathy without gangrene; E11.59 Type 2 diabetes mellitus with other circulatory complications; E11.42 Type 2 diabetes mellitus with diabetic polyneuropathy; I87.2 Venous insufficiency (chronic) (peripheral); E78.5 Hyperlipidemia, unspecified; J45.909 Unspecified asthma, uncomplicated; I10 Essential (primary) hypertension; E66.01 Morbid (severe) obesity due to excess calories; Z68.37 Body mass index [BMI] 37.0-37.9, adult; L97.515 Non-pressure chronic ulcer of other part of right foot with muscle involvement without evidence of necrosis; Z79.84 Long term (current) use of oral hypoglycemic drugs; Z79.899 Other long term (current) drug therapy ==

== ENCOUNTER 2020-06-23 00:38 | Day surgery (SDC) | payer OTHER | END 2020-06-23 12:00 | disposition home or self-care (01) | LOC: WOUND 00:38 | DX: E11.621 Type 2 diabetes mellitus with foot ulcer (principal); L97.512 Non-pressure chronic ulcer of other part of right foot with fat layer exposed; L97.412 Non-pressure chronic ulcer of right heel and midfoot with fat layer exposed; E11.52 Type 2 diabetes mellitus with diabetic peripheral angiopathy with gangrene; I96 Gangrene, not elsewhere classified; E11.69 Type 2 diabetes mellitus with other specified complication; M86.8X7 Other osteomyelitis, ankle and foot; E11.59 Type 2 diabetes mellitus with other circulatory complications; I87.2 Venous insufficiency (chronic) (peripheral); E78.5 Hyperlipidemia, unspecified; E11.36 Type 2 diabetes mellitus with diabetic cataract; H26.9 Unspecified cataract; I89.0 Lymphedema, not elsewhere classified; I11.0 Hypertensive heart disease with heart failure; I50.9 Heart failure, unspecified; M19.90 Unspecified osteoarthritis, unspecified site; J45.909 Unspecified asthma, uncomplicated; E11.42 Type 2 diabetes mellitus with diabetic polyneuropathy; E66.01 Morbid (severe) obesity due to excess calories; Z68.37 Body mass index [BMI] 37.0-37.9, adult; Z89.411 Acquired absence of right great toe; Z89.421 Acquired absence of other right toe(s); Z79.4 Long term (current) use of insulin; Z79.899 Other long term (current) drug therapy; Z51.5 Encounter for palliative care ==

== ENCOUNTER → 2020-06-25 | Outpatient (CLI) | payer OTHER ==
[~2020-06-25] MED LIST changes: +BASAGLAR K100 UNIT/1; +DOXY100 PO; +KLOR-CON M1010 MEQ PO; +SACC250C PO; +SULTRIDS PO
[2020-06-25 23:51] LABS: BASOPHILS ABSOLUTE AUTO 0.13 K/mm3 (0.00-0.23); BASOPHILS PERCENT AUTO 1 % (0-2); EOSINOPHILS ABSOLUTE AUTO 0.03 K/mm3 (0.00-0.68); EOSINOPHILS PERCENT AUTO 0 % (0-6); Hematocrit 38.9 % (37.0-53.0); IMMATURE GRAN ABSOLUTE AUTO 0.17 K/mm3 (0.00-0.10); IMMATURE GRAN PERCENT AUTO 1 % (0-1); LYMPHOCYTES ABSOLUTE AUTO 1.19 K/mm3 (0.84-5.20); LYMPHOCYTES PERCENT AUTO 5 % (21-46); MONOCYTES PERCENT AUTO 4 % (4-13); Mean Corpuscular HGB 30.1 pg (26.0-34.0); Mean Corpuscular HGB Conc 33.4 g/dL (31.5-36.5); Mean Corpuscular Volume 90 fL (80-100); Mean Platelet Volume 10.1 fL (9.1-12.4); NEUTROPHILS ABSOLUTE AUTO 20.55 K/mm3 (1.96-9.15); NEUTROPHILS PERCENT AUTO 90 % (41-73); Platelet Count 274 K/mm3 (150-400); RDW Coefficient Variation 12.7 % (11.7-14.2); RDW Standard Deviation 42.1 fL (35.1-46.3); Red Blood Cell Count 4.32 M/mm3 (4.30-5.90); White Blood Cell Count 22.87 K/mm3 (4.00-11.30)
[2020-06-26 00:08] LABS: Anion Gap 7 mmol/L (6-16); Blood Urea Nitrogen 22 mg/dL (8-24); Bun/Creatinine Ratio 21.4 (12.0-20.0); CO2, Blood 27 mmol/L (21-32); Calcium, Blood 8.5 mg/dL (8.5-10.1); Chloride, Blood 102 mmol/L (98-108); Creatinine, Blood 1.03 mg/dL (0.60-1.20); Glomerular Filtration Rate >60 (60-); Glucose, Blood 157 mg/dL (70-99); Potassium, Blood 3.5 mmol/L (3.5-5.5); Sodium, Blood 136 mmol/L (136-145)
== END | disposition home or self-care (01) ==
LOC: EDSTATUS 14:07 → LAB RH 23:46
PROVIDERS: Family Medicine
DX: R50.9 Fever, unspecified (principal)
CPT/HCPCS: 80048; 85025

== ENCOUNTER 2020-06-26 09:15 | Emergency (ER) | payer OTHER ==
[~2020-06-26] VITALS: Ht 182.9 cm; Wt 136.1 kg
[~2020-06-26 09:15] MED LIST changes: -BASAGLAR K100 UNIT/1; -DOXY100 PO; -KLOR-CON M1010 MEQ PO; -SACC250C PO; -SULTRIDS PO
[2020-06-26 09:54] LABS: BASOPHILS ABSOLUTE AUTO 0.11 K/mm3 (0.00-0.23); BASOPHILS PERCENT AUTO 1 % (0-2); EOSINOPHILS ABSOLUTE AUTO 0.09 K/mm3 (0.00-0.68); EOSINOPHILS PERCENT AUTO 1 % (0-6); Hematocrit 37.3 % (37.0-53.0); Hemoglobin 12.7 g/dL (13.5-17.5); IMMATURE GRAN ABSOLUTE AUTO 0.09 K/mm3 (0.00-0.10); IMMATURE GRAN PERCENT AUTO 1 % (0-1); LYMPHOCYTES ABSOLUTE AUTO 1.72 K/mm3 (0.84-5.20); LYMPHOCYTES PERCENT AUTO 11 % (21-46); MONOCYTES ABSOLUTE AUTO 0.67 K/mm3 (0.16-1.47); MONOCYTES PERCENT AUTO 4 % (4-13); Mean Corpuscular HGB 30.8 pg (26.0-34.0); Mean Corpuscular Volume 90 fL (80-100); Mean Platelet Volume 9.8 fL (9.1-12.4); NEUTROPHILS ABSOLUTE AUTO 13.37 K/mm3 (1.96-9.15); NEUTROPHILS PERCENT AUTO 83 % (41-73); Platelet Count 267 K/mm3 (150-400); RDW Coefficient Variation 12.9 % (11.7-14.2); RDW Standard Deviation 42.4 fL (35.1-46.3); Red Blood Cell Count 4.13 M/mm3 (4.30-5.90); White Blood Cell Count 16.05 K/mm3 (4.00-11.30)
[2020-06-26] MEDS ORDERED: SULTRIDS PO (10:05)
[2020-06-26] MEDS ORDERED: KLOR-CON M1010 MEQ PO (10:06)
[2020-06-26] MEDS ORDERED: DOXY100 PO (10:06)
[2020-06-26 10:07] LABS: Alanine Aminotransfer (ALT/SGP 22 U/L (12-78); Albumin, Blood 3.1 g/dL (3.4-5.0); Albumin/Globulin Ratio 0.7 (0.8-1.8); Alk Phos 108 U/L (50-136); Anion Gap 7 mmol/L (6-16); Aspartate Aminotrans (AST/SGOT 16 U/L (12-37); Bilirubin, Total 1.9 mg/dL (0.1-1.0); Blood Urea Nitrogen 23 mg/dL (8-24); Bun/Creatinine Ratio 21.3 (12.0-20.0); CO2, Blood 25 mmol/L (21-32); Calcium, Blood 8.5 mg/dL (8.5-10.1); Chloride, Blood 106 mmol/L (98-108); Creatinine, Blood 1.08 mg/dL (0.60-1.20); Globulin, Blood 4.6 g/dL (2.2-4.0); Glomerular Filtration Rate >60 (60-); Glucose, Blood 180 mg/dL (70-99); Potassium, Blood 3.6 mmol/L (3.5-5.5); Sodium, Blood 138 mmol/L (136-145); Total Protein, Blood 7.7 g/dL (6.4-8.2)
[2020-06-26] MEDS ORDERED: BASAGLAR K100 UNIT/1 (10:08)
[2020-06-26] MEDS ORDERED: SACC250C PO (11:13)
[2020-06-26 11:42] LABS: Source, Urine Catheter
[2020-06-26 11:47] LABS: Appearance, Urine Clear (Clear); Bilirubin, Urine Neg (Neg); Blood, Urine Neg (Neg); Color, Urine Yellow (P-Yellow); Glucose Qualitative, Urine Neg (Neg); Ketones, Urine Neg (Neg); Leukocyte Esterase, Urine Neg (Neg); Nitrite, Urine Neg (Neg); Protein, Urine 1+ (Neg); Specific Gravity, Urine 1.015 (1.003-1.022); Urobilinogen, Urine 1+ (Normal)
== END 2020-06-26 12:16 | disposition home or self-care (01) ==
LOC: ER 09:15
PROVIDERS: Physician Assistant
DX: K52.1 Toxic gastroenteritis and colitis (principal); T36.95XA Adverse effect of unspecified systemic antibiotic, initial encounter; E11.9 Type 2 diabetes mellitus without complications; J45.909 Unspecified asthma, uncomplicated; I10 Essential (primary) hypertension; Z79.84 Long term (current) use of oral hypoglycemic drugs; Z79.899 Other long term (current) drug therapy; Z87.891 Personal history of nicotine dependence
CPT/HCPCS: 36415; 80053; 83605; 83690; 84145; 85025; 96361; 96374; 99283-25; J2405; J7030

== ENCOUNTER → 2020-06-26 | Outpatient (CLI) | payer OTHER ==
[2020-06-26 08:10] LABS: D-Dimer, Quantitative 0.58 mg/L FEU (0.00-0.52); International Normalized Ratio 1.25; Prothrombin Time Results 13.2 Sec (9.7-11.5)
== END | disposition home or self-care (01) ==
LOC: LAB RH 07:15 → EDSTATUS 14:08
PROVIDERS: Family Medicine
DX: R50.9 Fever, unspecified (principal)
CPT/HCPCS: 85379; 85610

== ENCOUNTER 2020-06-30 03:12 | Day surgery (SDC) | payer OTHER ==
[~2020-06-30 03:12] MED LIST changes: +BASAGLAR K100 UNIT/1 SC; +DOXY100 PO; +KLOR-CON M1010 MEQ PO; +SACC250C PO; +SULTRIDS PO
== END 2020-06-30 23:30 | disposition home or self-care (01) ==
LOC: WOUND 03:12
DX: E11.621 Type 2 diabetes mellitus with foot ulcer (principal); E11.59 Type 2 diabetes mellitus with other circulatory complications; I87.2 Venous insufficiency (chronic) (peripheral); M86.671 Other chronic osteomyelitis, right ankle and foot; L97.509 Non-pressure chronic ulcer of other part of unspecified foot with unspecified severity; Z79.4 Long term (current) use of insulin

== ENCOUNTER 2020-07-07 02:06 | Day surgery (SDC) | payer OTHER | END 2020-07-07 23:21 | disposition home or self-care (01) | LOC: WOUND 02:06 | DX: E11.621 Type 2 diabetes mellitus with foot ulcer (principal); L97.412 Non-pressure chronic ulcer of right heel and midfoot with fat layer exposed; L97.512 Non-pressure chronic ulcer of other part of right foot with fat layer exposed; E11.52 Type 2 diabetes mellitus with diabetic peripheral angiopathy with gangrene; I96 Gangrene, not elsewhere classified; E78.5 Hyperlipidemia, unspecified; J45.909 Unspecified asthma, uncomplicated; E11.36 Type 2 diabetes mellitus with diabetic cataract; H26.9 Unspecified cataract; I89.0 Lymphedema, not elsewhere classified; I49.9 Cardiac arrhythmia, unspecified; I11.0 Hypertensive heart disease with heart failure; I50.9 Heart failure, unspecified; M19.90 Unspecified osteoarthritis, unspecified site; E11.42 Type 2 diabetes mellitus with diabetic polyneuropathy; E66.01 Morbid (severe) obesity due to excess calories; Z68.37 Body mass index [BMI] 37.0-37.9, adult; Z79.4 Long term (current) use of insulin; Z79.899 Other long term (current) drug therapy; Z89.431 Acquired absence of right foot; Z88.1 Allergy status to other antibiotic agents; Z51.5 Encounter for palliative care ==

== ENCOUNTER 2020-07-09 07:50 | Inpatient (IN) | payer OTHER ==
[~2020-07-09] VITALS: Ht 182.9 cm; Wt 147.1 kg
[2020-07-09 08:30] LABS: BASOPHILS ABSOLUTE AUTO 0.13 K/mm3 (0.00-0.23); BASOPHILS PERCENT AUTO 1 % (0-2); EOSINOPHILS ABSOLUTE AUTO 0.01 K/mm3 (0.00-0.68); EOSINOPHILS PERCENT AUTO 0 % (0-6); Hematocrit 43.8 % (37.0-53.0); Hemoglobin 14.6 g/dL (13.5-17.5); IMMATURE GRAN PERCENT AUTO 1 % (0-1); LYMPHOCYTES PERCENT AUTO 2 % (21-46); MONOCYTES ABSOLUTE AUTO 0.51 K/mm3 (0.16-1.47); MONOCYTES PERCENT AUTO 2 % (4-13); Mean Corpuscular HGB 30.7 pg (26.0-34.0); Mean Corpuscular HGB Conc 33.3 g/dL (31.5-36.5); Mean Corpuscular Volume 92 fL (80-100); Mean Platelet Volume 9.8 fL (9.1-12.4); NEUTROPHILS ABSOLUTE AUTO 26.33 K/mm3 (1.96-9.15); NEUTROPHILS PERCENT AUTO 94 % (41-73); Platelet Count 272 K/mm3 (150-400); RDW Standard Deviation 43.8 fL (35.1-46.3); Red Blood Cell Count 4.76 M/mm3 (4.30-5.90); White Blood Cell Count 27.98 K/mm3 (4.00-11.30)
[2020-07-09 09:03] LABS: Albumin, Blood 3.5 g/dL (3.4-5.0); Albumin/Globulin Ratio 0.6 (0.8-1.8); Bilirubin, Total 2.9 mg/dL (0.1-1.0); Bun/Creatinine Ratio 23.9 (12.0-20.0); Calcium, Blood 9.1 mg/dL (8.5-10.1); Creatinine, Blood 1.42 mg/dL (0.60-1.20); Globulin, Blood 5.4 g/dL (2.2-4.0); Potassium, Blood 4.6 mmol/L (3.5-5.5); Total Protein, Blood 8.9 g/dL (6.4-8.2)
[2020-07-09 13:09] LABS: Source, Urine Catheter
[2020-07-09 13:12] LABS: Appearance, Urine Clear (Clear); Bilirubin, Urine Neg (Neg); Blood, Urine Neg (Neg); Color, Urine Yellow (P-Yellow); Glucose Qualitative, Urine Neg (Neg); Ketones, Urine Neg (Neg); Leukocyte Esterase, Urine Neg (Neg); Nitrite, Urine Neg (Neg); Protein, Urine 2+ (Neg); Urobilinogen, Urine 1+ (Normal)
[2020-07-09 13:29] LABS: Amorphous Light (0-Heavy); Bacteria Rare /hpf; Red Blood Cells, Urine 0-2 /hpf (0-2); Squamous Epithelial Cells Not Seen /hpf (Few); White Blood Cells, Urine 0-2 /hpf (0-5)
[2020-07-09] MEDS ORDERED: BACTRIM DS PO (13:33)
--- NOTE | 2020-07-09 19:03 | NUR ---
sleepy but orintated to self and placement, call light in reach, iv infusing, rm air, bed rest, to be changed to full liquid diet until midnight then back on npo
--- NOTE | 2020-07-09 19:20 | NUR ---
ASSUMED CARE RECEIVED REPORT FROM FELIPE GALICIA. ASSUMED CARE OF PT. RESTING COMFORTABLY AT THIS TIME, NO S/S ACUTE DISTRESS NOTED, RESPS EVEN AND UNLABORED. DENIES NEEDS. CALL LIGHT, POSSESSIONS IN REACH, BED IN LOW POSITION WITH ALARMS ON. WCTM, PROVIDE CARE NEEDED T/O NIGHT.
--- NOTE | 2020-07-09 19:20 | NUR ---
DR. FOX FROM ORTHOPEDICS IN TO SEE PT, PT REFUSING AMPUTATION AT THIS TIME. NO NEW ORDERS RECEIVED. CONTINUE TO MONITOR.
[2020-07-10 05:27] LABS: BASOPHILS ABSOLUTE AUTO 0.08 K/mm3 (0.00-0.23); BASOPHILS PERCENT AUTO 1 % (0-2); EOSINOPHILS ABSOLUTE AUTO 0.08 K/mm3 (0.00-0.68); EOSINOPHILS PERCENT AUTO 1 % (0-6); Hematocrit 35.7 % (37.0-53.0); Hemoglobin 11.6 g/dL (13.5-17.5); IMMATURE GRAN ABSOLUTE AUTO 0.06 K/mm3 (0.00-0.10); IMMATURE GRAN PERCENT AUTO 1 % (0-1); LYMPHOCYTES ABSOLUTE AUTO 0.98 K/mm3 (0.84-5.20); LYMPHOCYTES PERCENT AUTO 11 % (21-46); MONOCYTES ABSOLUTE AUTO 0.42 K/mm3 (0.16-1.47); MONOCYTES PERCENT AUTO 5 % (4-13); Mean Corpuscular HGB 30.3 pg (26.0-34.0); Mean Corpuscular HGB Conc 32.5 g/dL (31.5-36.5); Mean Corpuscular Volume 93 fL (80-100); Mean Platelet Volume 9.7 fL (9.1-12.4); NEUTROPHILS ABSOLUTE AUTO 7.61 K/mm3 (1.96-9.15); NEUTROPHILS PERCENT AUTO 82 % (41-73); Platelet Count 203 K/mm3 (150-400); RDW Coefficient Variation 13.1 % (11.7-14.2); RDW Standard Deviation 44.5 fL (35.1-46.3); Red Blood Cell Count 3.83 M/mm3 (4.30-5.90); White Blood Cell Count 9.23 K/mm3 (4.00-11.30)
[2020-07-10 06:21] LABS: Alanine Aminotransfer (ALT/SGP 17 U/L (12-78); Albumin, Blood 2.6 g/dL (3.4-5.0); Albumin/Globulin Ratio 0.7 (0.8-1.8); Alk Phos 79 U/L (50-136); Anion Gap 6 mmol/L (6-16); Aspartate Aminotrans (AST/SGOT 15 U/L (12-37); Bilirubin, Total 1.6 mg/dL (0.1-1.0); Blood Urea Nitrogen 26 mg/dL (8-24); Bun/Creatinine Ratio 21.3 (12.0-20.0); CO2, Blood 25 mmol/L (21-32); Chloride, Blood 111 mmol/L (98-108); Creatinine, Blood 1.22 mg/dL (0.60-1.20); Globulin, Blood 3.9 g/dL (2.2-4.0); Glomerular Filtration Rate >60 (60-); Glucose, Blood 112 mg/dL (70-99); Potassium, Blood 3.5 mmol/L (3.5-5.5); Sodium, Blood 142 mmol/L (136-145); Total Protein, Blood 6.5 g/dL (6.4-8.2)
--- NOTE | 2020-07-10 07:21 | NUR ---
SHIFT SUMMARY PT ASLEEP AT THIS TIME, NO S/S ACUTE DISTRESS NOTED, WAS MONITORED EVERY 1-2 HOURS WITH NEEDS MET. VS REVIEWED, STABLE. PT DENIES NEEDS AT THIS TIME. MEDICATED X1 FOR PAIN, EFFECTIVE. CALL LIGHT, POSSESSIONS IN REACH, BED IN LOWEST POSITION WITH ALARMS ON. WILL CONTINUE TO MONITOR.
[2020-07-10 09:07] LABS: Vancomycin, Trough 15.5 ug/mL (5.0-10.0)
--- NOTE | 2020-07-10 09:07 | NUR ---
NOC NURSE REPORTED THAT OBS IN TO ASSESS SO NO NEED FOR CONSULT
--- NOTE | 2020-07-10 10:11 | NUR ---
Report received from noc shift, a+o, less sleepy than yesterday, call light in reach, pt asked to sit in chair, after placing an alarm in chair, assisted to move, 1 person assist, but pt is very heavy and not aware of effect on others, medicated as prescribed, currently running abx with no s/sx of infection or infiltration, will continue to monitor and treat
--- NOTE | 2020-07-10 18:06 | NUR ---
alert and orintated but is recounts a very unlikely life and list of relations, call light in reach, sitting up in chair for pt choice, abx infusing with no s/sx of infection or infiltration, wounds open to air, pt refused to have foot amputated, dr said they would figure something else out, tylenol for headache was effective
--- NOTE | 2020-07-11 04:39 | NUR ---
MEMORY CARE DIRECTOR SUMMARY PT A&O, ABLE TO MAKE NEEDS KNOWN. PLEASANT AND COOPERATIVE TO CARE. NO C/O PAIN OR ANY DISCOMFORT THIS SHIFT. JIGAR CP, SOB, OR N&V. JAMIL DRAINING CLEAR YELLOW URINE. DENIES DYSURIA. PT IS 1-2P ASSIST. CALM AND RESTED IN BED AT THIS TIME. BED AT LOWEST POSITION. CALL LIGHT WITHIN REACH.
[2020-07-11 08:45] LABS: Vancomycin, Trough 18.6 ug/mL (5.0-10.0)
--- NOTE | 2020-07-11 11:32 | NUR ---
a+o, moved to chair from bed per pt request, ehsant, max assist, assisted from chair and then back to assess, complains of shoulder pain but non pharmalogical interventions satisfy, call light in reach, rm air, abx infusing with no s/sx of infection or infiltration, will continue to monitor and treat
--- NOTE | 2020-07-11 18:57 | NUR ---
call light in reach, iv saline locked, rm air, spent mot of the day in chair, nurse would talk him into getting his feet up in bed (tried a foot rest) to reduce edema, pt kept moving himself back to the chair, was sure iv's were leeking but no fluid when assessed by nurse the first time, he was then seen playing with them and they did samra a second time nurse checked, cn started pg in l arm worked well for abx and fluids, continues to insist that he can save his foot, explained risk of continued diabetic ulcer on foot, pt acknoleged but stated that he knew of a treatment that would eliminate the infection, explained the abx's that were being given to the pt, pt acknowleged but continued to insist he would get the treatment his brother got, was very gracious and informative
--- NOTE | 2020-07-11 19:00 | NUR ---
ASSUMED CARE RECEIVED REPORT FROM FELIPE GALICIA. ASSUMED CARE OF PT. SITTING UP IN CHAIR AT THIS TIME, NO S/S ACUTE DISTRESS NOTED. ASKING TO USE URINAL. CASE LOADER OPERATOR AT BEDSIDE ASSISTING PT. PT DENIES OTHER NEEDS AT THIS TIME. CALL LIGHT, POSSESSIONS IN REACH, CHAIR ALARM ON. WCTM.
--- NOTE | 2020-07-11 21:12 | NUR ---
THIS RN ASSESSING PT, NOTED RT HAND IV TO HAVE ABSENT LUER LOCK. DRSG REMAINS C/D/I.
--- NOTE | 2020-07-12 07:05 | NUR ---
SHIFT SUMMARY PT SITTING UP IN CHAIR, NO S/S ACUTE DISTRESS NOTED. WAS MONITORED EVERY 1-2 HOURS WITH NEEDS MET. VS REVIEWED. NO ACUTE CHANGES IN CONDITION NOTED T/O NIGHT, VOIDED IN URINAL W/O DIFFICULTY, REQUIRED REMINDERS TO CALL PRIOR TO GETTING OOB, RE-DIRECTABLE. PT DENIES NEEDS. AT THIS TIME. CALL LIGHT, POSSESSIONS IN REACH, CHAIR ALARM ON. REPORT GIVEN TO FELIPE KINCAID.
--- NOTE | 2020-07-12 08:40 | NUR ---
pt pleasant talkative, grandiose and flight of thoughts. a/o to self and surroundings. denies pain. h/r reg, no murmer noted. no tele. lungs clear, resp easy, unlabored. on r.a. bt x4 last bm last nite per pt. voids urinal 1 asst to stand. bed in low position, call lite in reach, calls aprop
[2020-07-12 08:48] LABS: Vancomycin, Trough 19.1 ug/mL (5.0-10.0)
[2020-07-12 09:06] LABS: Anion Gap 4 mmol/L (6-16); Blood Urea Nitrogen 11 mg/dL (8-24); Bun/Creatinine Ratio 12.6 (12.0-20.0); CO2, Blood 26 mmol/L (21-32); Calcium, Blood 9.2 mg/dL (8.5-10.1); Chloride, Blood 109 mmol/L (98-108); Creatinine, Blood 0.87 mg/dL (0.60-1.20); Glomerular Filtration Rate >60 (60-); Glucose, Blood 132 mg/dL (70-99); Sodium, Blood 139 mmol/L (136-145)
--- NOTE | 2020-07-12 11:18 | NUR ---
permission for care christiano scott student nurse recieved permission to provide care to patient on 07/12/2020
--- NOTE | 2020-07-12 17:39 | NUR ---
pt pleasant today. no c/o pain. came by and we are expecting d.c tomorrow to snf. will continue po abx. no new concerns today. did have mri of foot today. bed in low position, calllite in reach, calls approp
[2020-07-12 22:30] LABS: Influenza A, PCR Negative (NEGATIVE); Influenza B, PCR Negative (NEGATIVE); Resp Syncytial Virus, PCR Negative (NEGATIVE); SARS-Cov-2 (COVID-19) PCR, MMC Negative (NEGATIVE)
--- NOTE | 2020-07-13 05:05 | NUR ---
SHIFT SUMMARY: VSS. AFEB. AAOX2-3. GRANDIOSE STATEMENTS AT BASELINE. RLE LARGER THAN LLE IN CIRCUMFERENCE. MED X 1 FOR LE PAIN W/ GOOD EFFECT. WOUNDS TO BLE IMPLEMENTATION CONSULTANT- DRY ESCHAR. IV ABT INFUSED PER ORDERS. PT SLEPT INTERMITTENTLY. COVID TEST NEGATIVE. NO ACUTE CONCERNS AT THIS TIME. WILL CONT TO MONITOR.
[2020-07-13] MEDS ORDERED: SULTRIDS PO (07:38)
--- NOTE | 2020-07-13 10:43 | NUR ---
CALLED REPORT TO JHOANA @ [facility] @ 7314. DISCUSSED WITH HER CHANGES IN PT MEDICATIONS, FOLLOW UP APPOINTMENTS, AND [facility] @ 0800. IV HAS BEEN REMOVED AND LOOKED WITHIN NORMAL LIMITS, PT IS DRESSED AND WAITING FOR TRANSPORTATION TO ARRIVE.
--- NOTE | 2020-07-13 11:15 | NUR ---
PT DC @ 1110 BY WHEELCHAIR WITH [facility] TO [facility].
== END 2020-07-13 11:12 | disposition home or self-care (01) | DRG 871 ==
LOC: ER 07:50 → EOR 13:34 → MEDS 13:34
PROVIDERS: Family Medicine; Pharmacist; Physician Assistant; ADMIT Hospitalist
DX: A41.9 Sepsis, unspecified organism (principal); G92 Toxic encephalopathy; I50.42 Chronic combined systolic (congestive) and diastolic (congestive) heart failure; M86.671 Other chronic osteomyelitis, right ankle and foot; L03.115 Cellulitis of right lower limb; N17.9 Acute kidney failure, unspecified; Z20.828 Contact with and (suspected) exposure to other viral communicable diseases; R65.20 Severe sepsis without septic shock; Z11.59 Encounter for screening for other viral diseases; J44.9 Chronic obstructive pulmonary disease, unspecified; I11.0 Hypertensive heart disease with heart failure; E11.621 Type 2 diabetes mellitus with foot ulcer; L97.519 Non-pressure chronic ulcer of other part of right foot with unspecified severity; Z79.4 Long term (current) use of insulin; E11.69 Type 2 diabetes mellitus with other specified complication; I48.0 Paroxysmal atrial fibrillation; F20.9 Schizophrenia, unspecified; E11.628 Type 2 diabetes mellitus with other skin complications; Z53.20 Procedure and treatment not carried out because of patient's decision for unspecified reasons; K21.9 Gastro-esophageal reflux disease without esophagitis; E78.5 Hyperlipidemia, unspecified; Z87.891 Personal history of nicotine dependence; R74.02 Elevation of levels of lactic acid dehydrogenase [LDH]
CPT/HCPCS: 0241U; 36415; 51702; 71045; 73620; 73720; 76705; 80048; 80053; 80202; 81001; 82947; 83605; 83690; 85025; 85651; 86140; 87040; 96361; 96365; 96366; 96367; 99285-25; A9270; A9270-GY; A9579; J0696; J2543; J3370; J7030; J7040; J7050; J7120

== ENCOUNTER 2020-07-14 00:56 | Day surgery (SDC) | payer OTHER ==
[~2020-07-14 00:56] MED LIST changes: +BACTRIM DS PO
== END 2020-07-14 22:48 | disposition home or self-care (01) ==
LOC: WOUND 00:56
DX: E11.621 Type 2 diabetes mellitus with foot ulcer (principal); L97.512 Non-pressure chronic ulcer of other part of right foot with fat layer exposed; L97.522 Non-pressure chronic ulcer of other part of left foot with fat layer exposed; E11.52 Type 2 diabetes mellitus with diabetic peripheral angiopathy with gangrene; I96 Gangrene, not elsewhere classified; E11.69 Type 2 diabetes mellitus with other specified complication; M86.671 Other chronic osteomyelitis, right ankle and foot; E11.42 Type 2 diabetes mellitus with diabetic polyneuropathy; E11.59 Type 2 diabetes mellitus with other circulatory complications; I87.2 Venous insufficiency (chronic) (peripheral); E78.5 Hyperlipidemia, unspecified; I10 Essential (primary) hypertension; J45.909 Unspecified asthma, uncomplicated; G47.30 Sleep apnea, unspecified; E07.9 Disorder of thyroid, unspecified; M10.9 Gout, unspecified; E11.40 Type 2 diabetes mellitus with diabetic neuropathy, unspecified; E66.01 Morbid (severe) obesity due to excess calories; Z89.411 Acquired absence of right great toe; Z68.37 Body mass index [BMI] 37.0-37.9, adult; Z79.4 Long term (current) use of insulin; Z79.2 Long term (current) use of antibiotics; Z79.899 Other long term (current) drug therapy; Z88.0 Allergy status to penicillin; Z88.1 Allergy status to other antibiotic agents; Z51.5 Encounter for palliative care

== ENCOUNTER → 2020-07-15 | Outpatient (CLI) | payer OTHER ==
[2020-07-15 13:20] LABS: Hematocrit 39.8 % (37.0-53.0); Hemoglobin 13.5 g/dL (13.5-17.5); Mean Corpuscular HGB 30.4 pg (26.0-34.0); Mean Corpuscular HGB Conc 33.9 g/dL (31.5-36.5); Mean Corpuscular Volume 90 fL (80-100); Mean Platelet Volume 10.2 fL (9.1-12.4); Platelet Count 370 K/mm3 (150-400); RDW Standard Deviation 42.6 fL (35.1-46.3); Red Blood Cell Count 4.44 M/mm3 (4.30-5.90); White Blood Cell Count 12.39 K/mm3 (4.00-11.30)
[2020-07-15 14:30] LABS: Anion Gap 6 mmol/L (6-16); Blood Urea Nitrogen 19 mg/dL (8-24); Bun/Creatinine Ratio 16.5 (12.0-20.0); CO2, Blood 28 mmol/L (21-32); Calcium, Blood 9.3 mg/dL (8.5-10.1); Chloride, Blood 105 mmol/L (98-108); Creatinine, Blood 1.15 mg/dL (0.60-1.20); Glomerular Filtration Rate >60 (60-); Glucose, Blood 106 mg/dL (70-99); Potassium, Blood 3.8 mmol/L (3.5-5.5); Sodium, Blood 139 mmol/L (136-145)
== END | disposition home or self-care (01) ==
LOC: LAB RH 12:41 → EDSTATUS 14:35
PROVIDERS: Internal Medicine Infectious Disease
DX: M86.671 Other chronic osteomyelitis, right ankle and foot (principal)
CPT/HCPCS: 80048; 85027

== ENCOUNTER → 2020-07-20 | Outpatient (CLI) | payer OTHER | END | disposition home or self-care (01) | LOC: LAB RH 10:58 → EDSTATUS 14:36 | DX: E11.621 Type 2 diabetes mellitus with foot ulcer (principal); L97.509 Non-pressure chronic ulcer of other part of unspecified foot with unspecified severity; M86.671 Other chronic osteomyelitis, right ankle and foot | CPT/HCPCS: 85651; 86140 ==

== ENCOUNTER 2020-07-26 00:32 | Day surgery (SDC) | payer OTHER | END 2020-07-26 23:03 | disposition home or self-care (01) | LOC: HBO 00:32 | DX: E11.621 Type 2 diabetes mellitus with foot ulcer (principal); M86.671 Other chronic osteomyelitis, right ankle and foot; E11.59 Type 2 diabetes mellitus with other circulatory complications; I87.2 Venous insufficiency (chronic) (peripheral); L97.419 Non-pressure chronic ulcer of right heel and midfoot with unspecified severity; Z79.4 Long term (current) use of insulin; Z79.899 Other long term (current) drug therapy | CPT/HCPCS: 82947; G0277 ==

== ENCOUNTER 2020-07-27 00:22 | Day surgery (SDC) | payer OTHER | END 2020-07-27 23:11 | disposition home or self-care (01) | LOC: HBO 00:22 | DX: E11.621 Type 2 diabetes mellitus with foot ulcer (principal); L97.412 Non-pressure chronic ulcer of right heel and midfoot with fat layer exposed; L97.512 Non-pressure chronic ulcer of other part of right foot with fat layer exposed; E11.69 Type 2 diabetes mellitus with other specified complication; M86.8X7 Other osteomyelitis, ankle and foot; E11.59 Type 2 diabetes mellitus with other circulatory complications; I87.2 Venous insufficiency (chronic) (peripheral); Z89.421 Acquired absence of other right toe(s); Z79.4 Long term (current) use of insulin; Z79.899 Other long term (current) drug therapy; Z88.0 Allergy status to penicillin; Z88.1 Allergy status to other antibiotic agents | CPT/HCPCS: 82947; G0277 ==

== ENCOUNTER 2020-07-29 00:09 | Day surgery (SDC) | payer OTHER | END 2020-07-29 23:31 | disposition home or self-care (01) | LOC: HBO 00:09 | DX: E11.621 Type 2 diabetes mellitus with foot ulcer (principal); L97.412 Non-pressure chronic ulcer of right heel and midfoot with fat layer exposed; L97.512 Non-pressure chronic ulcer of other part of right foot with fat layer exposed; E11.69 Type 2 diabetes mellitus with other specified complication; M86.8X7 Other osteomyelitis, ankle and foot; E11.59 Type 2 diabetes mellitus with other circulatory complications; I87.2 Venous insufficiency (chronic) (peripheral); Z89.421 Acquired absence of other right toe(s); Z79.4 Long term (current) use of insulin; Z79.899 Other long term (current) drug therapy; Z88.0 Allergy status to penicillin; Z88.1 Allergy status to other antibiotic agents | CPT/HCPCS: 82947; G0277 ==

== ENCOUNTER 2020-07-29 00:20 | Day surgery (SDC) | payer OTHER | END 2020-07-29 23:31 | disposition home or self-care (01) | LOC: WOUND 00:20 | DX: E11.621 Type 2 diabetes mellitus with foot ulcer (principal); L97.411 Non-pressure chronic ulcer of right heel and midfoot limited to breakdown of skin; L97.512 Non-pressure chronic ulcer of other part of right foot with fat layer exposed; E11.69 Type 2 diabetes mellitus with other specified complication; M86.671 Other chronic osteomyelitis, right ankle and foot; E11.59 Type 2 diabetes mellitus with other circulatory complications; E11.42 Type 2 diabetes mellitus with diabetic polyneuropathy; I87.2 Venous insufficiency (chronic) (peripheral); E78.5 Hyperlipidemia, unspecified; I10 Essential (primary) hypertension; J45.909 Unspecified asthma, uncomplicated; E66.01 Morbid (severe) obesity due to excess calories; Z68.37 Body mass index [BMI] 37.0-37.9, adult; Z89.411 Acquired absence of right great toe; Z88.0 Allergy status to penicillin; Z88.1 Allergy status to other antibiotic agents; Z79.4 Long term (current) use of insulin ==

== ENCOUNTER 2020-08-02 00:17 | Day surgery (SDC) | payer OTHER | END 2020-08-02 22:58 | disposition home or self-care (01) | LOC: HBO 00:17 | DX: E11.621 Type 2 diabetes mellitus with foot ulcer (principal); M86.671 Other chronic osteomyelitis, right ankle and foot; E11.59 Type 2 diabetes mellitus with other circulatory complications; I87.2 Venous insufficiency (chronic) (peripheral); L97.419 Non-pressure chronic ulcer of right heel and midfoot with unspecified severity; Z79.4 Long term (current) use of insulin; Z79.899 Other long term (current) drug therapy | CPT/HCPCS: 82947; G0277 ==

== ENCOUNTER 2020-08-03 00:26 | Day surgery (SDC) | payer OTHER | END 2020-08-03 22:40 | disposition home or self-care (01) | LOC: HBO 00:26 | DX: E11.621 Type 2 diabetes mellitus with foot ulcer (principal); L97.412 Non-pressure chronic ulcer of right heel and midfoot with fat layer exposed; L97.512 Non-pressure chronic ulcer of other part of right foot with fat layer exposed; E11.69 Type 2 diabetes mellitus with other specified complication; M86.8X7 Other osteomyelitis, ankle and foot; E11.59 Type 2 diabetes mellitus with other circulatory complications; I87.2 Venous insufficiency (chronic) (peripheral); Z79.4 Long term (current) use of insulin; Z79.899 Other long term (current) drug therapy; Z88.0 Allergy status to penicillin; Z88.1 Allergy status to other antibiotic agents | CPT/HCPCS: 82947; G0277 ==

== ENCOUNTER 2020-08-05 00:14 | Day surgery (SDC) | payer OTHER | END 2020-08-05 23:26 | disposition home or self-care (01) | LOC: HBO 00:14 | DX: E11.621 Type 2 diabetes mellitus with foot ulcer (principal); E11.59 Type 2 diabetes mellitus with other circulatory complications; I87.2 Venous insufficiency (chronic) (peripheral); M86.671 Other chronic osteomyelitis, right ankle and foot; L97.419 Non-pressure chronic ulcer of right heel and midfoot with unspecified severity; Z79.4 Long term (current) use of insulin; Z79.899 Other long term (current) drug therapy | CPT/HCPCS: 82947; G0277 ==

== ENCOUNTER 2020-08-09 00:12 | Day surgery (SDC) | payer OTHER | END 2020-08-09 23:08 | disposition home or self-care (01) | LOC: HBO 00:12 | DX: E11.621 Type 2 diabetes mellitus with foot ulcer (principal); L97.412 Non-pressure chronic ulcer of right heel and midfoot with fat layer exposed; E11.69 Type 2 diabetes mellitus with other specified complication; M86.8X7 Other osteomyelitis, ankle and foot; E11.59 Type 2 diabetes mellitus with other circulatory complications; I87.2 Venous insufficiency (chronic) (peripheral); Z88.0 Allergy status to penicillin; Z88.8 Allergy status to other drugs, medicaments and biological substances; Z79.4 Long term (current) use of insulin; Z79.899 Other long term (current) drug therapy | CPT/HCPCS: 82947; G0277 ==

== ENCOUNTER 2020-08-10 00:12 | Day surgery (SDC) | payer OTHER | END 2020-08-10 23:08 | disposition home or self-care (01) | LOC: HBO 00:12 | DX: E11.621 Type 2 diabetes mellitus with foot ulcer (principal); L97.412 Non-pressure chronic ulcer of right heel and midfoot with fat layer exposed; E11.69 Type 2 diabetes mellitus with other specified complication; M86.8X7 Other osteomyelitis, ankle and foot; I87.2 Venous insufficiency (chronic) (peripheral); Z89.421 Acquired absence of other right toe(s); Z79.4 Long term (current) use of insulin; Z79.899 Other long term (current) drug therapy; Z88.0 Allergy status to penicillin; Z88.1 Allergy status to other antibiotic agents | CPT/HCPCS: 82947; G0277 ==

== ENCOUNTER 2020-08-11 00:22 | Day surgery (SDC) | payer OTHER | END 2020-08-11 23:16 | disposition home or self-care (01) | LOC: HBO 00:22 | DX: E11.621 Type 2 diabetes mellitus with foot ulcer (principal); L97.412 Non-pressure chronic ulcer of right heel and midfoot with fat layer exposed; L97.512 Non-pressure chronic ulcer of other part of right foot with fat layer exposed; E11.69 Type 2 diabetes mellitus with other specified complication; M86.8X7 Other osteomyelitis, ankle and foot; E11.59 Type 2 diabetes mellitus with other circulatory complications; I87.2 Venous insufficiency (chronic) (peripheral); Z79.4 Long term (current) use of insulin; Z79.899 Other long term (current) drug therapy; Z88.0 Allergy status to penicillin; Z88.1 Allergy status to other antibiotic agents | CPT/HCPCS: 82947; G0277 ==

== ENCOUNTER 2020-08-12 00:11 | Day surgery (SDC) | payer OTHER | END 2020-08-12 23:07 | disposition home or self-care (01) | LOC: HBO 00:11 | DX: E11.621 Type 2 diabetes mellitus with foot ulcer (principal); L97.412 Non-pressure chronic ulcer of right heel and midfoot with fat layer exposed; L97.512 Non-pressure chronic ulcer of other part of right foot with fat layer exposed; E11.69 Type 2 diabetes mellitus with other specified complication; M86.8X7 Other osteomyelitis, ankle and foot; E11.59 Type 2 diabetes mellitus with other circulatory complications; I87.2 Venous insufficiency (chronic) (peripheral); Z79.4 Long term (current) use of insulin; Z79.899 Other long term (current) drug therapy; Z88.0 Allergy status to penicillin | CPT/HCPCS: 82947; G0277 ==

== ENCOUNTER 2020-08-13 00:36 | Day surgery (SDC) | payer OTHER | END 2020-08-13 23:37 | disposition home or self-care (01) | LOC: HBO 00:36 | DX: E11.621 Type 2 diabetes mellitus with foot ulcer (principal); L97.412 Non-pressure chronic ulcer of right heel and midfoot with fat layer exposed; L97.512 Non-pressure chronic ulcer of other part of right foot with fat layer exposed; E11.69 Type 2 diabetes mellitus with other specified complication; M86.8X7 Other osteomyelitis, ankle and foot; I87.2 Venous insufficiency (chronic) (peripheral); Z79.4 Long term (current) use of insulin; Z79.899 Other long term (current) drug therapy; Z88.0 Allergy status to penicillin; Z88.1 Allergy status to other antibiotic agents | CPT/HCPCS: 82947; G0277 ==

== ENCOUNTER 2020-08-13 00:41 | Day surgery (SDC) | payer OTHER | END 2020-08-13 23:37 | disposition home or self-care (01) | LOC: WOUND 00:41 | DX: E11.621 Type 2 diabetes mellitus with foot ulcer (principal); L97.512 Non-pressure chronic ulcer of other part of right foot with fat layer exposed; L97.412 Non-pressure chronic ulcer of right heel and midfoot with fat layer exposed; E11.52 Type 2 diabetes mellitus with diabetic peripheral angiopathy with gangrene; I96 Gangrene, not elsewhere classified; E11.69 Type 2 diabetes mellitus with other specified complication; M86.8X7 Other osteomyelitis, ankle and foot; E11.59 Type 2 diabetes mellitus with other circulatory complications; I87.2 Venous insufficiency (chronic) (peripheral); E78.5 Hyperlipidemia, unspecified; E11.42 Type 2 diabetes mellitus with diabetic polyneuropathy; E11.36 Type 2 diabetes mellitus with diabetic cataract; H26.9 Unspecified cataract; I49.9 Cardiac arrhythmia, unspecified; I11.0 Hypertensive heart disease with heart failure; I50.9 Heart failure, unspecified; M19.90 Unspecified osteoarthritis, unspecified site; J45.909 Unspecified asthma, uncomplicated; E66.01 Morbid (severe) obesity due to excess calories; Z89.411 Acquired absence of right great toe; Z89.421 Acquired absence of other right toe(s); Z68.37 Body mass index [BMI] 37.0-37.9, adult; Z79.4 Long term (current) use of insulin; Z79.899 Other long term (current) drug therapy; Z88.0 Allergy status to penicillin; Z88.1 Allergy status to other antibiotic agents | CPT/HCPCS: G0463 ==

== ENCOUNTER 2020-08-16 00:15 | Day surgery (SDC) | payer OTHER | END 2020-08-16 23:53 | disposition home or self-care (01) | LOC: HBO 00:15 | DX: E11.621 Type 2 diabetes mellitus with foot ulcer (principal); M86.671 Other chronic osteomyelitis, right ankle and foot; E11.59 Type 2 diabetes mellitus with other circulatory complications; I87.2 Venous insufficiency (chronic) (peripheral); L97.419 Non-pressure chronic ulcer of right heel and midfoot with unspecified severity; Z79.4 Long term (current) use of insulin; Z79.899 Other long term (current) drug therapy | CPT/HCPCS: 82947; G0277 ==

== ENCOUNTER 2020-08-17 00:12 | Day surgery (SDC) | payer OTHER | END 2020-08-17 23:00 | disposition home or self-care (01) | LOC: HBO 00:12 | DX: E11.621 Type 2 diabetes mellitus with foot ulcer (principal); L97.412 Non-pressure chronic ulcer of right heel and midfoot with fat layer exposed; L97.512 Non-pressure chronic ulcer of other part of right foot with fat layer exposed; E11.69 Type 2 diabetes mellitus with other specified complication; M86.8X7 Other osteomyelitis, ankle and foot; E11.59 Type 2 diabetes mellitus with other circulatory complications; I87.2 Venous insufficiency (chronic) (peripheral); Z89.421 Acquired absence of other right toe(s); Z88.0 Allergy status to penicillin; Z88.1 Allergy status to other antibiotic agents; Z79.4 Long term (current) use of insulin; Z79.899 Other long term (current) drug therapy | CPT/HCPCS: 82947; G0277 ==

== ENCOUNTER 2020-08-18 06:41 | Day surgery (SDC) | payer OTHER | END 2020-08-18 22:53 | disposition home or self-care (01) | LOC: HBO 06:41 | DX: E11.621 Type 2 diabetes mellitus with foot ulcer (principal); L97.412 Non-pressure chronic ulcer of right heel and midfoot with fat layer exposed; L97.512 Non-pressure chronic ulcer of other part of right foot with fat layer exposed; E11.69 Type 2 diabetes mellitus with other specified complication; M86.8X7 Other osteomyelitis, ankle and foot; E11.59 Type 2 diabetes mellitus with other circulatory complications; I87.2 Venous insufficiency (chronic) (peripheral); Z79.4 Long term (current) use of insulin; Z79.899 Other long term (current) drug therapy; Z88.0 Allergy status to penicillin; Z88.1 Allergy status to other antibiotic agents | CPT/HCPCS: 82947; G0277 ==

== ENCOUNTER 2020-08-23 00:21 | Day surgery (SDC) | payer OTHER ==
[~2020-08-23 00:21] MED LIST changes: -CEFTRIAXONE2 G1 IV
== END 2020-08-23 23:17 | disposition home or self-care (01) ==
LOC: HBO 00:21
DX: E11.621 Type 2 diabetes mellitus with foot ulcer (principal); L97.412 Non-pressure chronic ulcer of right heel and midfoot with fat layer exposed; L97.512 Non-pressure chronic ulcer of other part of right foot with fat layer exposed; E11.69 Type 2 diabetes mellitus with other specified complication; M86.8X7 Other osteomyelitis, ankle and foot; E11.59 Type 2 diabetes mellitus with other circulatory complications; I87.2 Venous insufficiency (chronic) (peripheral); Z79.4 Long term (current) use of insulin; Z79.899 Other long term (current) drug therapy; Z88.0 Allergy status to penicillin; Z88.1 Allergy status to other antibiotic agents
CPT/HCPCS: 82947; G0277

== ENCOUNTER → 2020-08-23 | Outpatient (CLI) | payer OTHER ==
[~2020-08-23] MED LIST changes: +CEFTRIAXONE2 G1 IV
== END | disposition home or self-care (01) ==
LOC: LAB RH 15:06 → EDSTATUS 15:41
DX: E11.621 Type 2 diabetes mellitus with foot ulcer (principal); L97.509 Non-pressure chronic ulcer of other part of unspecified foot with unspecified severity
CPT/HCPCS: 83036

== ENCOUNTER 2020-08-24 00:30 | Day surgery (SDC) | payer OTHER | END 2020-08-24 23:00 | disposition home or self-care (01) | LOC: HBO 00:30 | DX: E11.621 Type 2 diabetes mellitus with foot ulcer (principal); L97.412 Non-pressure chronic ulcer of right heel and midfoot with fat layer exposed; L97.512 Non-pressure chronic ulcer of other part of right foot with fat layer exposed; E11.69 Type 2 diabetes mellitus with other specified complication; M86.8X7 Other osteomyelitis, ankle and foot; E11.59 Type 2 diabetes mellitus with other circulatory complications; I87.2 Venous insufficiency (chronic) (peripheral); Z79.4 Long term (current) use of insulin; Z79.899 Other long term (current) drug therapy; Z88.0 Allergy status to penicillin; Z88.1 Allergy status to other antibiotic agents | CPT/HCPCS: 82947; G0277 ==

== ENCOUNTER 2020-08-25 01:21 | Day surgery (SDC) | payer OTHER | END 2020-08-25 23:27 | disposition home or self-care (01) | LOC: HBO 01:21 | DX: E11.621 Type 2 diabetes mellitus with foot ulcer (principal); L97.412 Non-pressure chronic ulcer of right heel and midfoot with fat layer exposed; L97.512 Non-pressure chronic ulcer of other part of right foot with fat layer exposed; E11.69 Type 2 diabetes mellitus with other specified complication; M86.8X7 Other osteomyelitis, ankle and foot; E11.59 Type 2 diabetes mellitus with other circulatory complications; I87.2 Venous insufficiency (chronic) (peripheral); Z79.4 Long term (current) use of insulin; Z79.899 Other long term (current) drug therapy; Z88.0 Allergy status to penicillin; Z88.1 Allergy status to other antibiotic agents | CPT/HCPCS: 82947; G0277 ==

== ENCOUNTER 2020-08-25 01:24 | Day surgery (SDC) | payer OTHER | END 2020-08-25 23:27 | disposition home or self-care (01) | LOC: WOUND 01:24 | DX: E11.621 Type 2 diabetes mellitus with foot ulcer (principal); L97.513 Non-pressure chronic ulcer of other part of right foot with necrosis of muscle; L97.412 Non-pressure chronic ulcer of right heel and midfoot with fat layer exposed; E11.52 Type 2 diabetes mellitus with diabetic peripheral angiopathy with gangrene; I96 Gangrene, not elsewhere classified; E78.5 Hyperlipidemia, unspecified; I10 Essential (primary) hypertension; J45.909 Unspecified asthma, uncomplicated; E11.42 Type 2 diabetes mellitus with diabetic polyneuropathy; E66.01 Morbid (severe) obesity due to excess calories; I87.2 Venous insufficiency (chronic) (peripheral); E11.36 Type 2 diabetes mellitus with diabetic cataract; H26.9 Unspecified cataract; I89.0 Lymphedema, not elsewhere classified; I49.9 Cardiac arrhythmia, unspecified; I11.0 Hypertensive heart disease with heart failure; I50.9 Heart failure, unspecified; E11.40 Type 2 diabetes mellitus with diabetic neuropathy, unspecified; M19.90 Unspecified osteoarthritis, unspecified site; E11.69 Type 2 diabetes mellitus with other specified complication; M86.8X7 Other osteomyelitis, ankle and foot; Z68.37 Body mass index [BMI] 37.0-37.9, adult; Z88.0 Allergy status to penicillin; Z88.1 Allergy status to other antibiotic agents; Z79.4 Long term (current) use of insulin; Z79.899 Other long term (current) drug therapy ==

== ENCOUNTER 2020-09-02 00:13 | Day surgery (SDC) | payer OTHER | END 2020-09-02 23:37 | disposition home or self-care (01) | LOC: WOUND 00:13 | DX: E11.621 Type 2 diabetes mellitus with foot ulcer (principal); L97.512 Non-pressure chronic ulcer of other part of right foot with fat layer exposed; M86.671 Other chronic osteomyelitis, right ankle and foot; E11.59 Type 2 diabetes mellitus with other circulatory complications; I87.2 Venous insufficiency (chronic) (peripheral); T87.89 Other complications of amputation stump; I10 Essential (primary) hypertension; J45.909 Unspecified asthma, uncomplicated; E78.5 Hyperlipidemia, unspecified; G62.9 Polyneuropathy, unspecified; E66.01 Morbid (severe) obesity due to excess calories; Z68.37 Body mass index [BMI] 37.0-37.9, adult; Z86.14 Personal history of Methicillin resistant Staphylococcus aureus infection; Z79.4 Long term (current) use of insulin | CPT/HCPCS: A9270 ==

== ENCOUNTER 2020-09-09 00:14 | Day surgery (SDC) | payer OTHER | END 2020-09-09 23:59 | disposition home or self-care (01) | LOC: WOUND 00:14 | DX: E11.621 Type 2 diabetes mellitus with foot ulcer (principal); L97.412 Non-pressure chronic ulcer of right heel and midfoot with fat layer exposed; M86.671 Other chronic osteomyelitis, right ankle and foot; E11.52 Type 2 diabetes mellitus with diabetic peripheral angiopathy with gangrene; I96 Gangrene, not elsewhere classified; E11.59 Type 2 diabetes mellitus with other circulatory complications; I87.2 Venous insufficiency (chronic) (peripheral); E11.69 Type 2 diabetes mellitus with other specified complication; E11.36 Type 2 diabetes mellitus with diabetic cataract; H26.9 Unspecified cataract; I89.0 Lymphedema, not elsewhere classified; J45.909 Unspecified asthma, uncomplicated; I49.9 Cardiac arrhythmia, unspecified; I11.0 Hypertensive heart disease with heart failure; I50.9 Heart failure, unspecified; M19.90 Unspecified osteoarthritis, unspecified site; E11.40 Type 2 diabetes mellitus with diabetic neuropathy, unspecified; Z88.0 Allergy status to penicillin; Z88.1 Allergy status to other antibiotic agents; Z79.4 Long term (current) use of insulin; Z79.899 Other long term (current) drug therapy | CPT/HCPCS: A9270 ==

== ENCOUNTER → 2020-09-14 | Outpatient (CLI) | payer OTHER ==
[~2020-09-14] MED LIST changes: +CEFTRIAXONE2 G1 IV
== END | disposition home or self-care (01) ==
LOC: LAB RH 09:30 → EDSTATUS 11:36
DX: M86.679 Other chronic osteomyelitis, unspecified ankle and foot (principal)
CPT/HCPCS: 85651; 86140

== ENCOUNTER 2020-09-16 01:29 | Day surgery (SDC) | payer OTHER ==
[~2020-09-16 01:29] MED LIST changes: -CEFTRIAXONE2 G1 IV
== END 2020-09-16 22:42 | disposition home or self-care (01) ==
LOC: WOUND 01:29
DX: E11.621 Type 2 diabetes mellitus with foot ulcer (principal); L97.412 Non-pressure chronic ulcer of right heel and midfoot with fat layer exposed; L97.512 Non-pressure chronic ulcer of other part of right foot with fat layer exposed; M86.671 Other chronic osteomyelitis, right ankle and foot; E11.59 Type 2 diabetes mellitus with other circulatory complications; I87.2 Venous insufficiency (chronic) (peripheral); E11.42 Type 2 diabetes mellitus with diabetic polyneuropathy; I10 Essential (primary) hypertension; E78.5 Hyperlipidemia, unspecified; J45.909 Unspecified asthma, uncomplicated; E66.01 Morbid (severe) obesity due to excess calories; Z88.0 Allergy status to penicillin; Z88.1 Allergy status to other antibiotic agents; Z79.4 Long term (current) use of insulin; Z79.899 Other long term (current) drug therapy
CPT/HCPCS: 73630; A9270

== ENCOUNTER → 2020-09-21 | Outpatient (CLI) | payer OTHER ==
[~2020-09-21] MED LIST changes: +CEFTRIAXONE2 G1 IV
[2020-09-21 22:37] LABS: Hematocrit 45.3 % (37.0-53.0); Mean Corpuscular HGB 30.4 pg (26.0-34.0); Mean Corpuscular HGB Conc 33.1 g/dL (31.5-36.5); Mean Corpuscular Volume 92 fL (80-100); Mean Platelet Volume 10.2 fL (9.1-12.4); Platelet Count 258 K/mm3 (150-400); RDW Coefficient Variation 13.1 % (11.7-14.2); RDW Standard Deviation 43.7 fL (35.1-46.3); Red Blood Cell Count 4.94 M/mm3 (4.30-5.90); White Blood Cell Count 17.06 K/mm3 (4.00-11.30)
[2020-09-21 22:54] LABS: Anion Gap 7 mmol/L (6-16); Blood Urea Nitrogen 26 mg/dL (8-24); Bun/Creatinine Ratio 28.8 (12.0-20.0); CO2, Blood 28 mmol/L (21-32); Calcium, Blood 8.7 mg/dL (8.5-10.1); Chloride, Blood 103 mmol/L (98-108); Glomerular Filtration Rate >60 (60-); Glucose, Blood 207 mg/dL (70-99); Potassium, Blood 4.1 mmol/L (3.5-5.5); Sodium, Blood 138 mmol/L (136-145)
== END | disposition home or self-care (01) ==
LOC: EDSTATUS 11:26 → LAB UVN 22:31 → LAB RH 22:31
PROVIDERS: Family Medicine
DX: R68.89 Other general symptoms and signs (principal); R79.89 Other specified abnormal findings of blood chemistry
CPT/HCPCS: 80048; 85027

== ENCOUNTER 2020-09-23 00:20 | Day surgery (SDC) | payer OTHER ==
[~2020-09-23 00:20] MED LIST changes: -CEFTRIAXONE2 G1 IV
== END 2020-09-23 23:35 | disposition home or self-care (01) ==
LOC: WOUND 00:20
DX: E11.621 Type 2 diabetes mellitus with foot ulcer (principal); M86.671 Other chronic osteomyelitis, right ankle and foot; E11.59 Type 2 diabetes mellitus with other circulatory complications; I87.2 Venous insufficiency (chronic) (peripheral); Z88.1 Allergy status to other antibiotic agents; Z79.4 Long term (current) use of insulin
CPT/HCPCS: 87071; 87075; 87102; 87205; A9270

== ENCOUNTER 2020-09-30 00:16 | Day surgery (SDC) | payer OTHER | END 2020-09-30 23:45 | disposition home or self-care (01) | LOC: WOUND 00:16 | DX: E11.621 Type 2 diabetes mellitus with foot ulcer (principal); L97.515 Non-pressure chronic ulcer of other part of right foot with muscle involvement without evidence of necrosis; M86.671 Other chronic osteomyelitis, right ankle and foot; E11.59 Type 2 diabetes mellitus with other circulatory complications; I87.2 Venous insufficiency (chronic) (peripheral); E78.5 Hyperlipidemia, unspecified; I10 Essential (primary) hypertension; J45.909 Unspecified asthma, uncomplicated; E11.42 Type 2 diabetes mellitus with diabetic polyneuropathy; E66.01 Morbid (severe) obesity due to excess calories; Z89.411 Acquired absence of right great toe; Z68.37 Body mass index [BMI] 37.0-37.9, adult | CPT/HCPCS: A9270 ==

== ENCOUNTER → 2020-10-23 | Outpatient (CLI) | payer OTHER ==
[~2020-10-23] MED LIST changes: +CEFTRIAXONE2 G1 IV
[2020-10-23 20:58] LABS: BASOPHILS ABSOLUTE AUTO 0.18 K/mm3 (0.00-0.23); BASOPHILS PERCENT AUTO 2 % (0-2); EOSINOPHILS ABSOLUTE AUTO 0.36 K/mm3 (0.00-0.68); EOSINOPHILS PERCENT AUTO 4 % (0-6); Hematocrit 37.4 % (37.0-53.0); IMMATURE GRAN ABSOLUTE AUTO 0.26 K/mm3 (0.00-0.10); IMMATURE GRAN PERCENT AUTO 3 % (0-1); LYMPHOCYTES ABSOLUTE AUTO 3.03 K/mm3 (0.84-5.20); LYMPHOCYTES PERCENT AUTO 30 % (21-46); MONOCYTES ABSOLUTE AUTO 0.69 K/mm3 (0.16-1.47); MONOCYTES PERCENT AUTO 7 % (4-13); Mean Corpuscular HGB 30.7 pg (26.0-34.0); Mean Corpuscular HGB Conc 34.8 g/dL (31.5-36.5); Mean Corpuscular Volume 88 fL (80-100); Mean Platelet Volume 9.9 fL (9.1-12.4); NEUTROPHILS ABSOLUTE AUTO 5.65 K/mm3 (1.96-9.15); NEUTROPHILS PERCENT AUTO 56 % (41-73); Platelet Count 359 K/mm3 (150-400); RDW Coefficient Variation 12.3 % (11.7-14.2); RDW Standard Deviation 39.3 fL (35.1-46.3); Red Blood Cell Count 4.23 M/mm3 (4.30-5.90); White Blood Cell Count 10.17 K/mm3 (4.00-11.30)
== END | disposition home or self-care (01) ==
LOC: EDSTATUS 12:19 → LAB RH 20:46
PROVIDERS: Family Medicine
DX: M86.671 Other chronic osteomyelitis, right ankle and foot (principal)
CPT/HCPCS: 85025

== ENCOUNTER → 2020-11-10 | Outpatient (CLI) | payer OTHER | END | disposition home or self-care (01) | LOC: LAB RH 10:13 → EDSTATUS 13:51 | DX: M86.671 Other chronic osteomyelitis, right ankle and foot (principal) | CPT/HCPCS: 85651; 86140 ==

== ENCOUNTER 2020-11-25 00:24 | Day surgery (SDC) | payer OTHER ==
[~2020-11-25 00:24] MED LIST changes: -CEFTRIAXONE2 G1 IV
== END 2020-11-25 22:56 | disposition home or self-care (01) ==
LOC: WOUND 00:24
DX: E11.621 Type 2 diabetes mellitus with foot ulcer (principal); L97.515 Non-pressure chronic ulcer of other part of right foot with muscle involvement without evidence of necrosis; L97.415 Non-pressure chronic ulcer of right heel and midfoot with muscle involvement without evidence of necrosis; L08.9 Local infection of the skin and subcutaneous tissue, unspecified; B95.1 Streptococcus, group B, as the cause of diseases classified elsewhere; B96.4 Proteus (mirabilis) (morganii) as the cause of diseases classified elsewhere; B96.89 Other specified bacterial agents as the cause of diseases classified elsewhere; E11.69 Type 2 diabetes mellitus with other specified complication; M86.671 Other chronic osteomyelitis, right ankle and foot; E11.59 Type 2 diabetes mellitus with other circulatory complications; I87.2 Venous insufficiency (chronic) (peripheral); I10 Essential (primary) hypertension; J45.909 Unspecified asthma, uncomplicated; E11.42 Type 2 diabetes mellitus with diabetic polyneuropathy; E66.01 Morbid (severe) obesity due to excess calories; Z89.411 Acquired absence of right great toe; Z89.421 Acquired absence of other right toe(s); Z68.37 Body mass index [BMI] 37.0-37.9, adult
CPT/HCPCS: 87071; 87075; 87077; 87147; 87186; 87205; A9270

== ENCOUNTER 2020-12-02 00:19 | Day surgery (SDC) | payer OTHER | END 2020-12-02 23:03 | disposition home or self-care (01) | LOC: WOUND 00:19 | DX: E11.621 Type 2 diabetes mellitus with foot ulcer (principal); E11.69 Type 2 diabetes mellitus with other specified complication; E11.42 Type 2 diabetes mellitus with diabetic polyneuropathy; L97.415 Non-pressure chronic ulcer of right heel and midfoot with muscle involvement without evidence of necrosis; M86.671 Other chronic osteomyelitis, right ankle and foot; T87.89 Other complications of amputation stump; I10 Essential (primary) hypertension; J45.909 Unspecified asthma, uncomplicated; E78.5 Hyperlipidemia, unspecified; E66.01 Morbid (severe) obesity due to excess calories; E11.59 Type 2 diabetes mellitus with other circulatory complications; I87.2 Venous insufficiency (chronic) (peripheral); Z89.411 Acquired absence of right great toe | CPT/HCPCS: A9270 ==

== ENCOUNTER 2020-12-07 01:04 | Day surgery (SDC) | payer OTHER ==
[~2020-12-07 01:04] MED LIST changes: -CEFTRIAXONE2 G1 IV
== END 2020-12-07 23:19 | disposition home or self-care (01) ==
LOC: WOUND 01:04
DX: E11.621 Type 2 diabetes mellitus with foot ulcer (principal); L97.515 Non-pressure chronic ulcer of other part of right foot with muscle involvement without evidence of necrosis; M86.671 Other chronic osteomyelitis, right ankle and foot; E11.59 Type 2 diabetes mellitus with other circulatory complications; I87.2 Venous insufficiency (chronic) (peripheral)
CPT/HCPCS: A9270

== ENCOUNTER → 2020-12-07 | Outpatient (CLI) | payer OTHER ==
[~2020-12-07] MED LIST changes: +CEFTRIAXONE2 G1 IV
== END | disposition home or self-care (01) ==
LOC: EDSTATUS 09:20 → LAB RH 10:43
DX: M86.671 Other chronic osteomyelitis, right ankle and foot (principal)
CPT/HCPCS: 85651; 86140

== ENCOUNTER 2020-12-14 00:01 | Day surgery (SDC) | payer OTHER | END 2020-12-14 23:07 | disposition home or self-care (01) | LOC: WOUND 00:01 | DX: E11.621 Type 2 diabetes mellitus with foot ulcer (principal); L97.515 Non-pressure chronic ulcer of other part of right foot with muscle involvement without evidence of necrosis; L97.413 Non-pressure chronic ulcer of right heel and midfoot with necrosis of muscle; M86.671 Other chronic osteomyelitis, right ankle and foot; E11.59 Type 2 diabetes mellitus with other circulatory complications; I87.2 Venous insufficiency (chronic) (peripheral); I10 Essential (primary) hypertension; E78.5 Hyperlipidemia, unspecified; E11.42 Type 2 diabetes mellitus with diabetic polyneuropathy | CPT/HCPCS: A9270 ==

== ENCOUNTER → 2020-12-15 | Outpatient (CLI) | payer OTHER ==
[~2020-12-15] MED LIST changes: +CEFTRIAXONE2 G1 IV
[2020-12-15 10:59] LABS: BASOPHILS ABSOLUTE AUTO 0.14 K/mm3 (0.00-0.23); BASOPHILS PERCENT AUTO 2 % (0-2); EOSINOPHILS ABSOLUTE AUTO 0.25 K/mm3 (0.00-0.68); EOSINOPHILS PERCENT AUTO 3 % (0-6); Hematocrit 40.9 % (37.0-53.0); Hemoglobin 14.1 g/dL (13.5-17.5); IMMATURE GRAN ABSOLUTE AUTO 0.13 K/mm3 (0.00-0.10); IMMATURE GRAN PERCENT AUTO 2 % (0-1); LYMPHOCYTES ABSOLUTE AUTO 2.47 K/mm3 (0.84-5.20); LYMPHOCYTES PERCENT AUTO 31 % (21-46); MONOCYTES ABSOLUTE AUTO 0.57 K/mm3 (0.16-1.47); MONOCYTES PERCENT AUTO 7 % (4-13); Mean Corpuscular HGB 30.5 pg (26.0-34.0); Mean Corpuscular HGB Conc 34.5 g/dL (31.5-36.5); Mean Corpuscular Volume 89 fL (80-100); Mean Platelet Volume 9.8 fL (9.1-12.4); NEUTROPHILS ABSOLUTE AUTO 4.53 K/mm3 (1.96-9.15); NEUTROPHILS PERCENT AUTO 56 % (41-73); Platelet Count 304 K/mm3 (150-400); RDW Coefficient Variation 12.7 % (11.7-14.2); RDW Standard Deviation 40.9 fL (35.1-46.3); Red Blood Cell Count 4.62 M/mm3 (4.30-5.90); White Blood Cell Count 8.09 K/mm3 (4.00-11.30)
[2020-12-15 11:20] LABS: Alanine Aminotransfer (ALT/SGP 15 U/L (12-78); Albumin, Blood 3.2 g/dL (3.4-5.0); Albumin/Globulin Ratio 0.6 (0.8-1.8); Alk Phos 110 U/L (50-136); Anion Gap 6 mmol/L (6-16); Aspartate Aminotrans (AST/SGOT 12 U/L (12-37); Bilirubin, Total 0.8 mg/dL (0.1-1.0); Blood Urea Nitrogen 23 mg/dL (8-24); Bun/Creatinine Ratio 22.5 (12.0-20.0); CO2, Blood 27 mmol/L (21-32); Calcium, Blood 8.5 mg/dL (8.5-10.1); Chloride, Blood 105 mmol/L (98-108); Creatinine, Blood 1.02 mg/dL (0.60-1.20); Globulin, Blood 5.2 g/dL (2.2-4.0); Glomerular Filtration Rate >60 (60-); Glucose, Blood 264 mg/dL (70-99); Sodium, Blood 138 mmol/L (136-145); Total Protein, Blood 8.4 g/dL (6.4-8.2)
== END | disposition home or self-care (01) ==
LOC: EDSTATUS 09:19 → LAB RH 10:52
PROVIDERS: Nurse Practitioner Family
DX: M86.671 Other chronic osteomyelitis, right ankle and foot (principal)
CPT/HCPCS: 80053; 85025; 85651

== ENCOUNTER 2020-12-16 00:46 | Day surgery (SDC) | payer OTHER ==
[~2020-12-16 00:46] MED LIST changes: -CEFTRIAXONE2 G1 IV
[2020-12-16] MEDS ORDERED: CEFTRIAXONE2 G1 IV (10:36)
== END 2020-12-16 10:06 | disposition home or self-care (01) ==
LOC: ATC 00:46
DX: E11.69 Type 2 diabetes mellitus with other specified complication (principal); M86.671 Other chronic osteomyelitis, right ankle and foot; B95.62 Methicillin resistant Staphylococcus aureus infection as the cause of diseases classified elsewhere; E11.621 Type 2 diabetes mellitus with foot ulcer; L97.515 Non-pressure chronic ulcer of other part of right foot with muscle involvement without evidence of necrosis; L97.413 Non-pressure chronic ulcer of right heel and midfoot with necrosis of muscle; E11.59 Type 2 diabetes mellitus with other circulatory complications; E11.42 Type 2 diabetes mellitus with diabetic polyneuropathy; I87.2 Venous insufficiency (chronic) (peripheral); E78.5 Hyperlipidemia, unspecified; I11.0 Hypertensive heart disease with heart failure; I50.42 Chronic combined systolic (congestive) and diastolic (congestive) heart failure; J45.909 Unspecified asthma, uncomplicated; E66.01 Morbid (severe) obesity due to excess calories; Z89.411 Acquired absence of right great toe; Z68.37 Body mass index [BMI] 37.0-37.9, adult
CPT/HCPCS: 99212; C1751

== ENCOUNTER 2020-12-21 00:09 | Day surgery (SDC) | payer OTHER ==
[~2020-12-21 00:09] MED LIST changes: +CEFTRIAXONE2 G1 IV
== END 2020-12-21 23:31 | disposition home or self-care (01) ==
LOC: WOUND 00:09
DX: E11.621 Type 2 diabetes mellitus with foot ulcer (principal); L97.515 Non-pressure chronic ulcer of other part of right foot with muscle involvement without evidence of necrosis; L97.415 Non-pressure chronic ulcer of right heel and midfoot with muscle involvement without evidence of necrosis; M86.671 Other chronic osteomyelitis, right ankle and foot; E11.59 Type 2 diabetes mellitus with other circulatory complications; I87.2 Venous insufficiency (chronic) (peripheral); I10 Essential (primary) hypertension; E78.5 Hyperlipidemia, unspecified; J45.909 Unspecified asthma, uncomplicated; E66.01 Morbid (severe) obesity due to excess calories; E11.42 Type 2 diabetes mellitus with diabetic polyneuropathy
CPT/HCPCS: A9270

== ENCOUNTER 2020-12-28 00:31 | Day surgery (SDC) | payer OTHER | END 2020-12-28 23:12 | disposition home or self-care (01) | LOC: WOUND 00:31 | DX: E11.621 Type 2 diabetes mellitus with foot ulcer (principal); L97.519 Non-pressure chronic ulcer of other part of right foot with unspecified severity; L97.419 Non-pressure chronic ulcer of right heel and midfoot with unspecified severity; M86.671 Other chronic osteomyelitis, right ankle and foot; E11.59 Type 2 diabetes mellitus with other circulatory complications; I87.2 Venous insufficiency (chronic) (peripheral) | CPT/HCPCS: A9270 ==

== ENCOUNTER 2021-01-04 00:09 | Day surgery (SDC) | payer OTHER | END 2021-01-04 23:47 | disposition home or self-care (01) | LOC: WOUND 00:09 | DX: E11.621 Type 2 diabetes mellitus with foot ulcer (principal); L97.515 Non-pressure chronic ulcer of other part of right foot with muscle involvement without evidence of necrosis; L97.415 Non-pressure chronic ulcer of right heel and midfoot with muscle involvement without evidence of necrosis; E11.42 Type 2 diabetes mellitus with diabetic polyneuropathy; E11.59 Type 2 diabetes mellitus with other circulatory complications; E11.69 Type 2 diabetes mellitus with other specified complication; I87.2 Venous insufficiency (chronic) (peripheral); M86.671 Other chronic osteomyelitis, right ankle and foot; E78.5 Hyperlipidemia, unspecified; I10 Essential (primary) hypertension; J45.909 Unspecified asthma, uncomplicated; E66.01 Morbid (severe) obesity due to excess calories; Z89.411 Acquired absence of right great toe; Z68.37 Body mass index [BMI] 37.0-37.9, adult | CPT/HCPCS: A9270 ==

== ENCOUNTER 2021-01-11 03:22 | Day surgery (SDC) | payer OTHER | END 2021-01-11 23:09 | disposition home or self-care (01) | LOC: WOUND 03:22 | DX: E11.621 Type 2 diabetes mellitus with foot ulcer (principal); L97.415 Non-pressure chronic ulcer of right heel and midfoot with muscle involvement without evidence of necrosis; I10 Essential (primary) hypertension; E78.5 Hyperlipidemia, unspecified; J45.909 Unspecified asthma, uncomplicated; E66.01 Morbid (severe) obesity due to excess calories; E11.42 Type 2 diabetes mellitus with diabetic polyneuropathy | CPT/HCPCS: A9270 ==

== ENCOUNTER 2021-01-25 04:44 | Day surgery (SDC) | payer OTHER | END 2021-01-25 23:45 | disposition home or self-care (01) | LOC: WOUND 04:44 | DX: E11.621 Type 2 diabetes mellitus with foot ulcer (principal); L97.512 Non-pressure chronic ulcer of other part of right foot with fat layer exposed; L97.412 Non-pressure chronic ulcer of right heel and midfoot with fat layer exposed; M86.671 Other chronic osteomyelitis, right ankle and foot; E11.59 Type 2 diabetes mellitus with other circulatory complications; I87.2 Venous insufficiency (chronic) (peripheral); I10 Essential (primary) hypertension; E78.5 Hyperlipidemia, unspecified; J45.909 Unspecified asthma, uncomplicated; E11.42 Type 2 diabetes mellitus with diabetic polyneuropathy; E66.01 Morbid (severe) obesity due to excess calories | CPT/HCPCS: A9270 ==

== ENCOUNTER 2021-02-22 03:23 | Day surgery (SDC) | payer OTHER | END 2021-02-22 23:30 | disposition home or self-care (01) | LOC: WOUND 03:23 | DX: E11.621 Type 2 diabetes mellitus with foot ulcer (principal); L97.415 Non-pressure chronic ulcer of right heel and midfoot with muscle involvement without evidence of necrosis; L97.515 Non-pressure chronic ulcer of other part of right foot with muscle involvement without evidence of necrosis; M86.671 Other chronic osteomyelitis, right ankle and foot; E11.59 Type 2 diabetes mellitus with other circulatory complications; I87.2 Venous insufficiency (chronic) (peripheral) | CPT/HCPCS: 87071; 87075; 87205; A9270 ==

== ENCOUNTER → 2021-02-23 | Outpatient (CLI) | payer OTHER ==
[2021-02-23 12:47] LABS: BASOPHILS ABSOLUTE AUTO 0.15 K/mm3 (0.00-0.23); BASOPHILS PERCENT AUTO 1 % (0-2); EOSINOPHILS ABSOLUTE AUTO 0.16 K/mm3 (0.00-0.68); EOSINOPHILS PERCENT AUTO 1 % (0-6); Hematocrit 40.5 % (37.0-53.0); Hemoglobin 14.1 g/dL (13.5-17.5); IMMATURE GRAN ABSOLUTE AUTO 0.12 K/mm3 (0.00-0.10); IMMATURE GRAN PERCENT AUTO 1 % (0-1); LYMPHOCYTES ABSOLUTE AUTO 1.42 K/mm3 (0.84-5.20); LYMPHOCYTES PERCENT AUTO 9 % (21-46); MONOCYTES ABSOLUTE AUTO 0.58 K/mm3 (0.16-1.47); MONOCYTES PERCENT AUTO 4 % (4-13); Mean Corpuscular HGB 30.4 pg (26.0-34.0); Mean Corpuscular HGB Conc 34.8 g/dL (31.5-36.5); Mean Corpuscular Volume 87 fL (80-100); Mean Platelet Volume 10.5 fL (9.1-12.4); NEUTROPHILS PERCENT AUTO 84 % (41-73); Platelet Count 279 K/mm3 (150-400); RDW Coefficient Variation 12.5 % (11.7-14.2); RDW Standard Deviation 39.8 fL (35.1-46.3); Red Blood Cell Count 4.64 M/mm3 (4.30-5.90); White Blood Cell Count 15.43 K/mm3 (4.00-11.30)
[2021-02-23 13:15] LABS: Alanine Aminotransfer (ALT/SGP 21 U/L (12-78); Albumin/Globulin Ratio 0.6 (0.8-1.8); Alk Phos 114 U/L (50-136); Anion Gap 6 mmol/L (6-16); Aspartate Aminotrans (AST/SGOT 15 U/L (12-37); Bilirubin, Total 1.3 mg/dL (0.1-1.0); Blood Urea Nitrogen 28 mg/dL (8-24); Bun/Creatinine Ratio 28.1 (12.0-20.0); CO2, Blood 24 mmol/L (21-32); Calcium, Blood 8.9 mg/dL (8.5-10.1); Chloride, Blood 105 mmol/L (98-108); Globulin, Blood 5.4 g/dL (2.2-4.0); Glomerular Filtration Rate >60 (60-); Glucose, Blood 277 mg/dL (70-99); Potassium, Blood 3.9 mmol/L (3.5-5.5); Sodium, Blood 135 mmol/L (136-145); Total Protein, Blood 8.4 g/dL (6.4-8.2)
== END | disposition home or self-care (01) ==
LOC: LAB RH 10:14 → EDSTATUS 10:32
PROVIDERS: Internal Medicine
DX: M86.671 Other chronic osteomyelitis, right ankle and foot (principal); I11.0 Hypertensive heart disease with heart failure; I50.40 Unspecified combined systolic (congestive) and diastolic (congestive) heart failure
CPT/HCPCS: 80053; 85025; 85651; 86140

== ENCOUNTER → 2021-02-24 | Outpatient (CLI) | payer OTHER | LOC: EDSTATUS 10:03 → LAB RH 21:00 | DX: M86.671 Other chronic osteomyelitis, right ankle and foot (principal) | CPT/HCPCS: 87070; 87075; 87205 ==

== ENCOUNTER → 2021-03-01 | Outpatient (CLI) | payer OTHER ==
[2021-03-01 11:26] LABS: Hematocrit 42.9 % (37.0-53.0); Hemoglobin 14.9 g/dL (13.5-17.5); Mean Corpuscular HGB 30.3 pg (26.0-34.0); Mean Corpuscular HGB Conc 34.7 g/dL (31.5-36.5); Mean Corpuscular Volume 87 fL (80-100); Platelet Count 300 K/mm3 (150-400); RDW Coefficient Variation 12.4 % (11.7-14.2); RDW Standard Deviation 39.5 fL (35.1-46.3); Red Blood Cell Count 4.92 M/mm3 (4.30-5.90); White Blood Cell Count 10.52 K/mm3 (4.00-11.30)
== END ==
LOC: EDSTATUS 10:04 → LAB RH 10:09
PROVIDERS: Internal Medicine
DX: I10 Essential (primary) hypertension (principal)
CPT/HCPCS: 85027

== ENCOUNTER 2021-03-08 00:41 | Day surgery (SDC) | payer OTHER | END 2021-03-08 23:31 | disposition home or self-care (01) | LOC: WOUND 00:41 | DX: E11.621 Type 2 diabetes mellitus with foot ulcer (principal); L97.415 Non-pressure chronic ulcer of right heel and midfoot with muscle involvement without evidence of necrosis; M86.671 Other chronic osteomyelitis, right ankle and foot; E11.59 Type 2 diabetes mellitus with other circulatory complications; I87.2 Venous insufficiency (chronic) (peripheral) | CPT/HCPCS: A9270 ==

== ENCOUNTER → 2021-03-18 | Outpatient (CLI) | payer OTHER ==
[2021-03-18 13:08] LABS: Creatinine, Blood 0.84 mg/dL (0.60-1.20); Glomerular Filtration Rate >60 (60-)
== END ==
LOC: EDSTATUS 10:06 → LAB RH 11:25
PROVIDERS: Internal Medicine
DX: I10 Essential (primary) hypertension (principal)
CPT/HCPCS: 82565

== ENCOUNTER → 2021-04-11 | Outpatient (CLI) | payer OTHER ==
[2021-04-11 15:17] LABS: Anion Gap 6 mmol/L (6-16); Blood Urea Nitrogen 34 mg/dL (8-24); Bun/Creatinine Ratio 33.3 (12.0-20.0); CO2, Blood 25 mmol/L (21-32); Calcium, Blood 9.2 mg/dL (8.5-10.1); Chloride, Blood 104 mmol/L (98-108); Creatinine, Blood 1.02 mg/dL (0.60-1.20); Glomerular Filtration Rate >60 (60-); Glucose, Blood 228 mg/dL (70-99); Potassium, Blood 4.1 mmol/L (3.5-5.5); Sodium, Blood 135 mmol/L (136-145)
== END | disposition home or self-care (01) ==
LOC: EDSTATUS 09:52 → LAB RH 13:17
PROVIDERS: Internal Medicine
DX: R79.89 Other specified abnormal findings of blood chemistry (principal)
CPT/HCPCS: 80048

== ENCOUNTER → 2021-04-15 | Outpatient (CLI) | payer OTHER ==
[2021-04-16 16:02] LABS: CORONAVIRUS (COVID19) CSH-NRL Negative (Negative)
== END | disposition home or self-care (01) ==
LOC: EDSTATUS 09:53 → LAB RH 12:56
PROVIDERS: Internal Medicine
DX: U07.1 COVID-19 (principal)
CPT/HCPCS: U0003

== ENCOUNTER → 2021-05-24 | Outpatient (CLI) | payer OTHER ==
[2021-05-24 23:18] LABS: BASOPHILS ABSOLUTE AUTO 0.13 K/mm3 (0.00-0.23); BASOPHILS PERCENT AUTO 1 % (0-2); EOSINOPHILS ABSOLUTE AUTO 0.03 K/mm3 (0.00-0.68); EOSINOPHILS PERCENT AUTO 0 % (0-6); Hematocrit 43.9 % (37.0-53.0); Hemoglobin 14.9 g/dL (13.5-17.5); IMMATURE GRAN ABSOLUTE AUTO 0.11 K/mm3 (0.00-0.10); IMMATURE GRAN PERCENT AUTO 1 % (0-1); LYMPHOCYTES ABSOLUTE AUTO 0.46 K/mm3 (0.84-5.20); LYMPHOCYTES PERCENT AUTO 3 % (21-46); MONOCYTES ABSOLUTE AUTO 0.51 K/mm3 (0.16-1.47); MONOCYTES PERCENT AUTO 3 % (4-13); Mean Corpuscular HGB 30.3 pg (26.0-34.0); Mean Corpuscular HGB Conc 33.9 g/dL (31.5-36.5); Mean Corpuscular Volume 89 fL (80-100); Mean Platelet Volume 9.6 fL (9.1-12.4); NEUTROPHILS ABSOLUTE AUTO 16.93 K/mm3 (1.96-9.15); NEUTROPHILS PERCENT AUTO 93 % (41-73); Platelet Count 243 K/mm3 (150-400); RDW Coefficient Variation 12.4 % (11.7-14.2); RDW Standard Deviation 40.8 fL (35.1-46.3); Red Blood Cell Count 4.91 M/mm3 (4.30-5.90); White Blood Cell Count 18.17 K/mm3 (4.00-11.30)
[2021-05-24 23:36] LABS: Alanine Aminotransfer (ALT/SGP 16 U/L (12-78); Albumin/Globulin Ratio 0.5 (0.8-1.8); Alk Phos 95 U/L (50-136); Anion Gap 8 mmol/L (6-16); Aspartate Aminotrans (AST/SGOT 16 U/L (12-37); Bilirubin, Total 1.1 mg/dL (0.1-1.0); Blood Urea Nitrogen 37 mg/dL (8-24); Bun/Creatinine Ratio 32.2 (12.0-20.0); CO2, Blood 25 mmol/L (21-32); Calcium, Blood 9.2 mg/dL (8.5-10.1); Chloride, Blood 104 mmol/L (98-108); Creatinine, Blood 1.15 mg/dL (0.60-1.20); Globulin, Blood 5.5 g/dL (2.2-4.0); Glomerular Filtration Rate >60 (60-); Glucose, Blood 214 mg/dL (70-99); Potassium, Blood 4.1 mmol/L (3.5-5.5); Sodium, Blood 137 mmol/L (136-145); Total Protein, Blood 8.5 g/dL (6.4-8.2)
== END | disposition home or self-care (01) ==
LOC: EDSTATUS 14:05 → LAB RH 23:11
PROVIDERS: Family Medicine
DX: E11.621 Type 2 diabetes mellitus with foot ulcer (principal); L97.509 Non-pressure chronic ulcer of other part of unspecified foot with unspecified severity; M86.671 Other chronic osteomyelitis, right ankle and foot
CPT/HCPCS: 80053; 85025

== ENCOUNTER → 2021-05-26 | Outpatient (CLI) | payer OTHER | END | disposition home or self-care (01) | LOC: LAB RH 10:15 → EDSTATUS 14:06 | DX: M86.671 Other chronic osteomyelitis, right ankle and foot (principal) | CPT/HCPCS: 87040 ==

== ENCOUNTER → 2021-07-22 | Outpatient (CLI) | payer OTHER ==
[2021-07-22 23:31] LABS: BASOPHILS ABSOLUTE AUTO 0.09 K/mm3 (0.00-0.23); BASOPHILS PERCENT AUTO 1 % (0-2); EOSINOPHILS ABSOLUTE AUTO 0.02 K/mm3 (0.00-0.68); EOSINOPHILS PERCENT AUTO 0 % (0-6); Hematocrit 39.8 % (37.0-53.0); Hemoglobin 13.3 g/dL (13.5-17.5); IMMATURE GRAN ABSOLUTE AUTO 0.14 K/mm3 (0.00-0.10); IMMATURE GRAN PERCENT AUTO 1 % (0-1); LYMPHOCYTES PERCENT AUTO 3 % (21-46); MONOCYTES ABSOLUTE AUTO 0.58 K/mm3 (0.16-1.47); MONOCYTES PERCENT AUTO 3 % (4-13); Mean Corpuscular HGB 30.1 pg (26.0-34.0); Mean Corpuscular HGB Conc 33.4 g/dL (31.5-36.5); Mean Corpuscular Volume 90 fL (80-100); Mean Platelet Volume 10.2 fL (9.1-12.4); NEUTROPHILS PERCENT AUTO 92 % (41-73); Platelet Count 288 K/mm3 (150-400); RDW Coefficient Variation 12.7 % (11.7-14.2); RDW Standard Deviation 41.9 fL (35.1-46.3); Red Blood Cell Count 4.42 M/mm3 (4.30-5.90); White Blood Cell Count 18.63 K/mm3 (4.00-11.30)
[2021-07-22 23:48] LABS: Alanine Aminotransfer (ALT/SGP 18 U/L (12-78); Albumin, Blood 2.7 g/dL (3.4-5.0); Albumin/Globulin Ratio 0.4 (0.8-1.8); Alk Phos 98 U/L (50-136); Anion Gap 9 mmol/L (6-16); Aspartate Aminotrans (AST/SGOT 14 U/L (12-37); Bilirubin, Total 1.6 mg/dL (0.1-1.0); Blood Urea Nitrogen 34 mg/dL (8-24); Bun/Creatinine Ratio 29.3 (12.0-20.0); CO2, Blood 22 mmol/L (21-32); Chloride, Blood 103 mmol/L (98-108); Creatinine, Blood 1.16 mg/dL (0.60-1.20); Glomerular Filtration Rate >60 (60-); Glucose, Blood 178 mg/dL (70-99); Potassium, Blood 3.7 mmol/L (3.5-5.5); Sodium, Blood 134 mmol/L (136-145); Total Protein, Blood 8.7 g/dL (6.4-8.2)
== END | disposition home or self-care (01) ==
LOC: EDSTATUS 10:08 → LAB RH 23:24
PROVIDERS: Internal Medicine
DX: M86.671 Other chronic osteomyelitis, right ankle and foot (principal)
CPT/HCPCS: 80053; 85025; 85651; 86140

== ENCOUNTER 2021-09-09 06:04 | Day surgery (SDC) | payer OTHER | END 2021-09-09 23:46 | disposition home or self-care (01) | LOC: WOUND 06:04 | DX: E11.621 Type 2 diabetes mellitus with foot ulcer (principal); L97.515 Non-pressure chronic ulcer of other part of right foot with muscle involvement without evidence of necrosis; L97.415 Non-pressure chronic ulcer of right heel and midfoot with muscle involvement without evidence of necrosis; I87.2 Venous insufficiency (chronic) (peripheral); J44.9 Chronic obstructive pulmonary disease, unspecified; I11.0 Hypertensive heart disease with heart failure; I50.9 Heart failure, unspecified; E11.51 Type 2 diabetes mellitus with diabetic peripheral angiopathy without gangrene; M19.90 Unspecified osteoarthritis, unspecified site; E11.43 Type 2 diabetes mellitus with diabetic autonomic (poly)neuropathy; E66.01 Morbid (severe) obesity due to excess calories; Z68.41 Body mass index [BMI] 40.0-44.9, adult; Z89.411 Acquired absence of right great toe; Z88.1 Allergy status to other antibiotic agents; Z87.891 Personal history of nicotine dependence | CPT/HCPCS: A9270; G0463 ==

== ENCOUNTER 2021-09-16 05:07 | Day surgery (SDC) | payer OTHER | END 2021-09-16 12:00 | disposition home or self-care (01) | LOC: WOUND 05:07 | DX: E11.621 Type 2 diabetes mellitus with foot ulcer (principal); L97.415 Non-pressure chronic ulcer of right heel and midfoot with muscle involvement without evidence of necrosis; T87.89 Other complications of amputation stump; L97.515 Non-pressure chronic ulcer of other part of right foot with muscle involvement without evidence of necrosis; E11.69 Type 2 diabetes mellitus with other specified complication; M86.671 Other chronic osteomyelitis, right ankle and foot; E78.5 Hyperlipidemia, unspecified; I10 Essential (primary) hypertension; J45.909 Unspecified asthma, uncomplicated; E11.42 Type 2 diabetes mellitus with diabetic polyneuropathy; I87.2 Venous insufficiency (chronic) (peripheral); E66.01 Morbid (severe) obesity due to excess calories; Z68.41 Body mass index [BMI] 40.0-44.9, adult; Z89.411 Acquired absence of right great toe | CPT/HCPCS: A9270 ==

== ENCOUNTER 2021-11-08 04:55 | Day surgery (SDC) | payer OTHER ==
[~2021-11-08 04:55] MED LIST changes: +JUVEN PACKET1 EAC3 PO; +MIRALAX11910 PO; +VISBIOME 112.51 EACH PO
== END 2021-11-08 23:59 | disposition home or self-care (01) ==
LOC: WOUND 04:55
DX: E11.621 Type 2 diabetes mellitus with foot ulcer (principal); L97.515 Non-pressure chronic ulcer of other part of right foot with muscle involvement without evidence of necrosis; L97.415 Non-pressure chronic ulcer of right heel and midfoot with muscle involvement without evidence of necrosis; E11.69 Type 2 diabetes mellitus with other specified complication; M86.671 Other chronic osteomyelitis, right ankle and foot; E11.59 Type 2 diabetes mellitus with other circulatory complications; I87.2 Venous insufficiency (chronic) (peripheral); I10 Essential (primary) hypertension; J45.909 Unspecified asthma, uncomplicated; E11.42 Type 2 diabetes mellitus with diabetic polyneuropathy; E66.01 Morbid (severe) obesity due to excess calories; Z89.411 Acquired absence of right great toe; Z68.41 Body mass index [BMI] 40.0-44.9, adult
CPT/HCPCS: G0463

== ENCOUNTER 2021-12-06 01:30 | Day surgery (SDC) | payer OTHER | END 2021-12-06 23:02 | disposition home or self-care (01) | LOC: WOUND 01:30 | DX: E11.621 Type 2 diabetes mellitus with foot ulcer (principal); L97.515 Non-pressure chronic ulcer of other part of right foot with muscle involvement without evidence of necrosis; L97.415 Non-pressure chronic ulcer of right heel and midfoot with muscle involvement without evidence of necrosis; E11.69 Type 2 diabetes mellitus with other specified complication; M86.671 Other chronic osteomyelitis, right ankle and foot; E11.59 Type 2 diabetes mellitus with other circulatory complications; I87.2 Venous insufficiency (chronic) (peripheral) | CPT/HCPCS: G0463 ==

== ENCOUNTER 2021-12-20 00:57 | Day surgery (SDC) | payer OTHER | END 2021-12-20 23:50 | disposition home or self-care (01) | LOC: WOUND 00:57 | DX: E11.621 Type 2 diabetes mellitus with foot ulcer (principal); L97.515 Non-pressure chronic ulcer of other part of right foot with muscle involvement without evidence of necrosis; L97.415 Non-pressure chronic ulcer of right heel and midfoot with muscle involvement without evidence of necrosis; E11.622 Type 2 diabetes mellitus with other skin ulcer; L97.812 Non-pressure chronic ulcer of other part of right lower leg with fat layer exposed; E11.59 Type 2 diabetes mellitus with other circulatory complications; M86.671 Other chronic osteomyelitis, right ankle and foot; I87.2 Venous insufficiency (chronic) (peripheral); L97.105 Non-pressure chronic ulcer of unspecified thigh with muscle involvement without evidence of necrosis | CPT/HCPCS: A9270; G0463 ==

== ENCOUNTER 2022-01-03 02:53 | Day surgery (SDC) | payer OTHER | END 2022-01-03 23:41 | disposition home or self-care (01) | LOC: WOUND 02:53 | DX: E11.621 Type 2 diabetes mellitus with foot ulcer (principal); L97.515 Non-pressure chronic ulcer of other part of right foot with muscle involvement without evidence of necrosis; L97.105 Non-pressure chronic ulcer of unspecified thigh with muscle involvement without evidence of necrosis; E11.69 Type 2 diabetes mellitus with other specified complication; M86.671 Other chronic osteomyelitis, right ankle and foot; E11.59 Type 2 diabetes mellitus with other circulatory complications; I87.2 Venous insufficiency (chronic) (peripheral) | CPT/HCPCS: A9270 ==

== ENCOUNTER 2022-01-17 08:00 | Day surgery (SDC) | payer OTHER | END 2022-01-17 23:59 | disposition home or self-care (01) | LOC: WOUND 08:00 | DX: E11.621 Type 2 diabetes mellitus with foot ulcer (principal); L97.515 Non-pressure chronic ulcer of other part of right foot with muscle involvement without evidence of necrosis; M86.671 Other chronic osteomyelitis, right ankle and foot; E11.59 Type 2 diabetes mellitus with other circulatory complications; E11.69 Type 2 diabetes mellitus with other specified complication; I87.2 Venous insufficiency (chronic) (peripheral); L97.105 Non-pressure chronic ulcer of unspecified thigh with muscle involvement without evidence of necrosis | CPT/HCPCS: G0463 ==

== ENCOUNTER 2022-01-24 02:04 | Day surgery (SDC) | payer OTHER | END 2022-01-24 23:23 | disposition home or self-care (01) | LOC: WOUND 02:04 | DX: E11.621 Type 2 diabetes mellitus with foot ulcer (principal); L97.515 Non-pressure chronic ulcer of other part of right foot with muscle involvement without evidence of necrosis; E11.69 Type 2 diabetes mellitus with other specified complication; E11.59 Type 2 diabetes mellitus with other circulatory complications; M86.671 Other chronic osteomyelitis, right ankle and foot; I87.2 Venous insufficiency (chronic) (peripheral); L97.105 Non-pressure chronic ulcer of unspecified thigh with muscle involvement without evidence of necrosis | CPT/HCPCS: A9270 ==

== ENCOUNTER 2022-01-31 01:00 | Day surgery (SDC) | payer OTHER | END 2022-01-31 23:27 | disposition home or self-care (01) | LOC: WOUND 01:00 | DX: E11.621 Type 2 diabetes mellitus with foot ulcer (principal); L97.515 Non-pressure chronic ulcer of other part of right foot with muscle involvement without evidence of necrosis; L97.415 Non-pressure chronic ulcer of right heel and midfoot with muscle involvement without evidence of necrosis; E11.69 Type 2 diabetes mellitus with other specified complication; M86.671 Other chronic osteomyelitis, right ankle and foot; I87.2 Venous insufficiency (chronic) (peripheral); E11.59 Type 2 diabetes mellitus with other circulatory complications; L03.115 Cellulitis of right lower limb; Z89.411 Acquired absence of right great toe | CPT/HCPCS: A9270; G0463 ==

== ENCOUNTER 2022-02-07 01:55 | Day surgery (SDC) | payer OTHER | END 2022-02-07 23:05 | disposition home or self-care (01) | LOC: WOUND 01:55 | DX: E11.621 Type 2 diabetes mellitus with foot ulcer (principal); L97.515 Non-pressure chronic ulcer of other part of right foot with muscle involvement without evidence of necrosis; M86.671 Other chronic osteomyelitis, right ankle and foot; E11.59 Type 2 diabetes mellitus with other circulatory complications; L97.105 Non-pressure chronic ulcer of unspecified thigh with muscle involvement without evidence of necrosis; L03.115 Cellulitis of right lower limb; I87.2 Venous insufficiency (chronic) (peripheral) | CPT/HCPCS: A9270 ==

== ENCOUNTER 2022-02-14 03:29 | Day surgery (SDC) | payer OTHER | END 2022-02-14 22:47 | disposition home or self-care (01) | LOC: WOUND 03:29 | DX: E11.621 Type 2 diabetes mellitus with foot ulcer (principal); L97.515 Non-pressure chronic ulcer of other part of right foot with muscle involvement without evidence of necrosis; L97.415 Non-pressure chronic ulcer of right heel and midfoot with muscle involvement without evidence of necrosis; L97.105 Non-pressure chronic ulcer of unspecified thigh with muscle involvement without evidence of necrosis; L03.115 Cellulitis of right lower limb; E11.59 Type 2 diabetes mellitus with other circulatory complications; M86.671 Other chronic osteomyelitis, right ankle and foot; I87.2 Venous insufficiency (chronic) (peripheral) | CPT/HCPCS: G0463 ==

== ENCOUNTER → 2022-09-13 | Outpatient (CLI) | payer OTHER | LOC: PLD 07:23 → LAB SHORT 07:23 | DX: E11.621 Type 2 diabetes mellitus with foot ulcer (principal); L97.412 Non-pressure chronic ulcer of right heel and midfoot with fat layer exposed; L97.512 Non-pressure chronic ulcer of other part of right foot with fat layer exposed; E11.42 Type 2 diabetes mellitus with diabetic polyneuropathy | CPT/HCPCS: 88305; 88312 ==

== ENCOUNTER 2022-10-31 00:18 | Day surgery (SDC) | payer OTHER | END 2022-10-31 23:13 | disposition home or self-care (01) | LOC: WOUND 00:18 | DX: E11.621 Type 2 diabetes mellitus with foot ulcer (principal); L97.412 Non-pressure chronic ulcer of right heel and midfoot with fat layer exposed; M86.671 Other chronic osteomyelitis, right ankle and foot; E11.69 Type 2 diabetes mellitus with other specified complication; I87.2 Venous insufficiency (chronic) (peripheral); L97.105 Non-pressure chronic ulcer of unspecified thigh with muscle involvement without evidence of necrosis; L03.115 Cellulitis of right lower limb; E11.42 Type 2 diabetes mellitus with diabetic polyneuropathy | CPT/HCPCS: A9270; G0463 ==

== ENCOUNTER 2022-11-07 00:54 | Day surgery (SDC) | payer OTHER | END 2022-11-07 22:46 | disposition home or self-care (01) | LOC: WOUND 00:54 | DX: E11.621 Type 2 diabetes mellitus with foot ulcer (principal); L97.412 Non-pressure chronic ulcer of right heel and midfoot with fat layer exposed; L97.512 Non-pressure chronic ulcer of other part of right foot with fat layer exposed; E11.69 Type 2 diabetes mellitus with other specified complication; M86.671 Other chronic osteomyelitis, right ankle and foot; E11.59 Type 2 diabetes mellitus with other circulatory complications; I87.2 Venous insufficiency (chronic) (peripheral); E11.42 Type 2 diabetes mellitus with diabetic polyneuropathy | CPT/HCPCS: A9270; G0463 ==

== ENCOUNTER 2022-12-12 01:55 | Day surgery (SDC) | payer OTHER | END 2022-12-12 22:51 | disposition home or self-care (01) | LOC: WOUND 01:55 | DX: L89.612 Pressure ulcer of right heel, stage 2 (principal); E11.621 Type 2 diabetes mellitus with foot ulcer; L97.412 Non-pressure chronic ulcer of right heel and midfoot with fat layer exposed; L89.892 Pressure ulcer of other site, stage 2; E11.59 Type 2 diabetes mellitus with other circulatory complications; I87.2 Venous insufficiency (chronic) (peripheral); L97.512 Non-pressure chronic ulcer of other part of right foot with fat layer exposed; E11.42 Type 2 diabetes mellitus with diabetic polyneuropathy | CPT/HCPCS: G0463 ==

== ENCOUNTER 2023-12-28 04:04 | Day surgery (SDC) | payer OTHER | END 2023-12-28 23:06 | disposition home or self-care (01) | LOC: WOUND 04:04 | DX: E11.621 Type 2 diabetes mellitus with foot ulcer (principal); L97.412 Non-pressure chronic ulcer of right heel and midfoot with fat layer exposed; E11.69 Type 2 diabetes mellitus with other specified complication; M86.671 Other chronic osteomyelitis, right ankle and foot; E11.42 Type 2 diabetes mellitus with diabetic polyneuropathy; E66.01 Morbid (severe) obesity due to excess calories; J45.909 Unspecified asthma, uncomplicated; I10 Essential (primary) hypertension; E78.5 Hyperlipidemia, unspecified; Z88.1 Allergy status to other antibiotic agents; Z88.8 Allergy status to other drugs, medicaments and biological substances | CPT/HCPCS: A6213; A6214; G0463 ==

== ENCOUNTER 2024-01-04 05:23 | Day surgery (SDC) | payer OTHER | END 2024-01-04 22:46 | disposition home or self-care (01) | LOC: WOUND 05:23 | DX: E11.621 Type 2 diabetes mellitus with foot ulcer (principal); L97.412 Non-pressure chronic ulcer of right heel and midfoot with fat layer exposed; E78.5 Hyperlipidemia, unspecified; J45.909 Unspecified asthma, uncomplicated; I10 Essential (primary) hypertension; E11.42 Type 2 diabetes mellitus with diabetic polyneuropathy; E66.01 Morbid (severe) obesity due to excess calories; E11.51 Type 2 diabetes mellitus with diabetic peripheral angiopathy without gangrene; I87.2 Venous insufficiency (chronic) (peripheral) ==

== ENCOUNTER 2024-03-05 01:40 | Day surgery (SDC) | payer OTHER ==
[2024-03-05] MEDS ORDERED: Lidocaine HCl 4% Cream 5 GM ONE (10:21)
== END 2024-03-05 23:04 | disposition home or self-care (01) ==
LOC: WOUND 01:40
DX: E11.621 Type 2 diabetes mellitus with foot ulcer (principal); L97.422 Non-pressure chronic ulcer of left heel and midfoot with fat layer exposed; L97.412 Non-pressure chronic ulcer of right heel and midfoot with fat layer exposed; E11.69 Type 2 diabetes mellitus with other specified complication; M86.671 Other chronic osteomyelitis, right ankle and foot; E11.42 Type 2 diabetes mellitus with diabetic polyneuropathy; I10 Essential (primary) hypertension; E78.5 Hyperlipidemia, unspecified; E66.01 Morbid (severe) obesity due to excess calories; Z68.41 Body mass index [BMI] 40.0-44.9, adult
CPT/HCPCS: A6213; A9270; G0463

== ENCOUNTER 2024-03-10 03:31 | Day surgery (SDC) | payer OTHER ==
[2024-03-10] MEDS ORDERED: Lidocaine HCl 4% Cream 5 GM ONE (15:07)
== END 2024-03-10 23:20 | disposition home or self-care (01) ==
LOC: WOUND 03:31
DX: E11.621 Type 2 diabetes mellitus with foot ulcer (principal); L97.412 Non-pressure chronic ulcer of right heel and midfoot with fat layer exposed; E78.5 Hyperlipidemia, unspecified; I10 Essential (primary) hypertension; J45.909 Unspecified asthma, uncomplicated; E11.42 Type 2 diabetes mellitus with diabetic polyneuropathy; E66.01 Morbid (severe) obesity due to excess calories; L97.422 Non-pressure chronic ulcer of left heel and midfoot with fat layer exposed; E11.622 Type 2 diabetes mellitus with other skin ulcer; L97.812 Non-pressure chronic ulcer of other part of right lower leg with fat layer exposed; E11.51 Type 2 diabetes mellitus with diabetic peripheral angiopathy without gangrene; I87.2 Venous insufficiency (chronic) (peripheral); Z89.411 Acquired absence of right great toe
CPT/HCPCS: A6213; A9270

== ENCOUNTER 2024-04-15 04:09 | Day surgery (SDC) | payer OTHER ==
[2024-04-15] MEDS ORDERED: Lidocaine HCl 4% Cream 5 GM ONE (14:51)
== END 2024-04-15 23:37 | disposition home or self-care (01) ==
LOC: WOUND 04:09
DX: E11.621 Type 2 diabetes mellitus with foot ulcer (principal); L97.412 Non-pressure chronic ulcer of right heel and midfoot with fat layer exposed; E78.5 Hyperlipidemia, unspecified; I10 Essential (primary) hypertension; J45.909 Unspecified asthma, uncomplicated; E11.40 Type 2 diabetes mellitus with diabetic neuropathy, unspecified; E66.01 Morbid (severe) obesity due to excess calories; E11.51 Type 2 diabetes mellitus with diabetic peripheral angiopathy without gangrene; E11.622 Type 2 diabetes mellitus with other skin ulcer; I87.2 Venous insufficiency (chronic) (peripheral)
CPT/HCPCS: A9270

== ENCOUNTER 2024-04-23 00:48 | Day surgery (SDC) | payer OTHER | END 2024-04-23 23:19 | disposition home or self-care (01) | LOC: WOUND 00:48 | DX: E11.621 Type 2 diabetes mellitus with foot ulcer (principal); E11.622 Type 2 diabetes mellitus with other skin ulcer; E11.51 Type 2 diabetes mellitus with diabetic peripheral angiopathy without gangrene; I87.2 Venous insufficiency (chronic) (peripheral) | CPT/HCPCS: A6213; A6214; G0463 ==

== ENCOUNTER 2024-05-22 02:50 | Day surgery (SDC) | payer OTHER ==
[2024-05-22] MEDS ORDERED: Lidocaine HCl 4% Cream 5 GM ONE (08:27)
== END 2024-05-22 23:00 | disposition home or self-care (01) ==
LOC: WOUND 02:50
DX: E11.621 Type 2 diabetes mellitus with foot ulcer (principal); L97.815 Non-pressure chronic ulcer of other part of right lower leg with muscle involvement without evidence of necrosis; L97.415 Non-pressure chronic ulcer of right heel and midfoot with muscle involvement without evidence of necrosis; E11.622 Type 2 diabetes mellitus with other skin ulcer; L97.812 Non-pressure chronic ulcer of other part of right lower leg with fat layer exposed; I87.2 Venous insufficiency (chronic) (peripheral); E11.51 Type 2 diabetes mellitus with diabetic peripheral angiopathy without gangrene; I10 Essential (primary) hypertension; E78.5 Hyperlipidemia, unspecified; E11.42 Type 2 diabetes mellitus with diabetic polyneuropathy; J45.909 Unspecified asthma, uncomplicated; E66.01 Morbid (severe) obesity due to excess calories; Z68.41 Body mass index [BMI] 40.0-44.9, adult
CPT/HCPCS: A6213; A6214; A9270

== ENCOUNTER 2024-06-05 02:04 | Day surgery (SDC) | payer OTHER ==
[2024-06-05] MEDS ORDERED: CEFD300 PO (12:21)
[2024-06-05] MEDS ORDERED: PRED20 PO (12:21)
== END 2024-06-06 02:52 | disposition home or self-care (01) ==
LOC: WOUND 02:04
DX: E11.621 Type 2 diabetes mellitus with foot ulcer (principal); L97.412 Non-pressure chronic ulcer of right heel and midfoot with fat layer exposed; E11.622 Type 2 diabetes mellitus with other skin ulcer; L97.812 Non-pressure chronic ulcer of other part of right lower leg with fat layer exposed; E11.51 Type 2 diabetes mellitus with diabetic peripheral angiopathy without gangrene; I87.2 Venous insufficiency (chronic) (peripheral); I10 Essential (primary) hypertension; E66.01 Morbid (severe) obesity due to excess calories
CPT/HCPCS: A6213; A6214; G0463

== ENCOUNTER 2024-06-05 09:53 | Emergency (ER) | payer OTHER ==
[~2024-06-05] VITALS: Ht 188 cm; Wt 127.0 kg
[2024-06-05 11:30] VITALS: BP 129/90
[2024-06-05 11:49] LABS: Influenza A, PCR NEGATIVE (NEGATIVE); Influenza B, PCR NEGATIVE (NEGATIVE); Resp Syncytial Virus, PCR NEGATIVE (NEGATIVE); SARS-Cov-2 (COVID-19) PCR, MMC NEGATIVE (NEGATIVE)
[2024-06-05] MEDS ORDERED: PRED20 PO (12:21)
[2024-06-05] MEDS ORDERED: CEFD300 PO (12:21)
== END 2024-06-05 13:04 | disposition home or self-care (01) ==
LOC: ER 09:53
PROVIDERS: Physician Assistant
DX: J44.1 Chronic obstructive pulmonary disease with (acute) exacerbation (principal); Z88.0 Allergy status to penicillin; Z88.1 Allergy status to other antibiotic agents; Z79.899 Other long term (current) drug therapy; Z79.4 Long term (current) use of insulin; Z79.84 Long term (current) use of oral hypoglycemic drugs; J45.909 Unspecified asthma, uncomplicated; K21.9 Gastro-esophageal reflux disease without esophagitis; I48.91 Unspecified atrial fibrillation; I10 Essential (primary) hypertension
CPT/HCPCS: 0241U; 71046; 99285-25

== ENCOUNTER 2024-06-12 01:16 | Day surgery (SDC) | payer OTHER ==
[~2024-06-12 01:16] MED LIST changes: +CEFD300 PO
[2024-06-12] MEDS ORDERED: Lidocaine HCl 4% Cream 5 GM ONE (08:28)
== END 2024-06-12 23:11 | disposition home or self-care (01) ==
LOC: WOUND 01:16
DX: E11.621 Type 2 diabetes mellitus with foot ulcer (principal); L97.412 Non-pressure chronic ulcer of right heel and midfoot with fat layer exposed; E78.5 Hyperlipidemia, unspecified; I10 Essential (primary) hypertension; E11.42 Type 2 diabetes mellitus with diabetic polyneuropathy; E11.51 Type 2 diabetes mellitus with diabetic peripheral angiopathy without gangrene; E66.01 Morbid (severe) obesity due to excess calories; J45.909 Unspecified asthma, uncomplicated; Z89.411 Acquired absence of right great toe
CPT/HCPCS: A6213; A9270

== ENCOUNTER 2024-06-19 02:47 | Day surgery (SDC) | payer OTHER ==
[2024-06-19] MEDS ORDERED: Lidocaine HCl 4% Cream 5 GM ONE (09:16)
[2024-06-19] MEDS ORDERED: PHENA200 PO (12:27)
[2024-06-19] MEDS ORDERED: CEFD300 PO (12:27)
== END 2024-06-19 23:33 | disposition home or self-care (01) ==
LOC: WOUND 02:47
DX: E11.621 Type 2 diabetes mellitus with foot ulcer (principal); L97.412 Non-pressure chronic ulcer of right heel and midfoot with fat layer exposed; E11.42 Type 2 diabetes mellitus with diabetic polyneuropathy; E66.01 Morbid (severe) obesity due to excess calories; E11.622 Type 2 diabetes mellitus with other skin ulcer; L97.812 Non-pressure chronic ulcer of other part of right lower leg with fat layer exposed; E11.51 Type 2 diabetes mellitus with diabetic peripheral angiopathy without gangrene; I87.2 Venous insufficiency (chronic) (peripheral); E78.5 Hyperlipidemia, unspecified; I10 Essential (primary) hypertension; J45.909 Unspecified asthma, uncomplicated; N39.0 Urinary tract infection, site not specified; K21.9 Gastro-esophageal reflux disease without esophagitis; Z87.891 Personal history of nicotine dependence; Z79.4 Long term (current) use of insulin; Z79.84 Long term (current) use of oral hypoglycemic drugs; Z79.52 Long term (current) use of systemic steroids; Z79.899 Other long term (current) drug therapy; Z88.0 Allergy status to penicillin; Z88.1 Allergy status to other antibiotic agents
CPT/HCPCS: 51798; 87186; 99283; A6213; A6214; A9270

== ENCOUNTER 2024-06-19 10:04 | Emergency (ER) | payer OTHER ==
[~2024-06-19] VITALS: Ht 188 cm; Wt 113.4 kg
[2024-06-19 11:19] LABS: Source, Urine Clean Catch
[2024-06-19 11:34] LABS: Appearance, Urine Hazy (Clear); Bilirubin, Urine Neg (Neg); Blood, Urine 2+ (Neg); Color, Urine Yellow (P-Yellow); Glucose Qualitative, Urine Neg (Neg); Ketones, Urine Neg (Neg); Leukocyte Esterase, Urine 1+ (Neg); Nitrite, Urine Pos (Neg); Protein, Urine Neg (Neg); Urobilinogen, Urine NORM (Normal)
[2024-06-19 12:15] LABS: Red Blood Cells, Urine 0-2 /hpf (0-2)
[2024-06-19 12:16] LABS: Bacteria Many /hpf; Squamous Epithelial Cells Rare /hpf (Few)
[2024-06-19] MEDS ORDERED: Cefdinir 300 MG Cap PO ONE (12:20)
[2024-06-19] MEDS ORDERED: Phenazopyridine HCl 100 MG Tab PO ONE (12:25)
[2024-06-19] MEDS ORDERED: CEFD300 PO (12:27)
[2024-06-19] MEDS ORDERED: PHENA200 PO (12:27)
[2024-06-19 12:59] VITALS: BP 152/109
== END 2024-06-19 13:05 | disposition home or self-care (01) ==
LOC: ER 10:04
PROVIDERS: Student in an Organized Health Care Education/Training Program
DX: N39.0 Urinary tract infection, site not specified (principal); J45.909 Unspecified asthma, uncomplicated; K21.9 Gastro-esophageal reflux disease without esophagitis; I48.91 Unspecified atrial fibrillation; Z87.891 Personal history of nicotine dependence; Z79.4 Long term (current) use of insulin; Z79.84 Long term (current) use of oral hypoglycemic drugs; Z79.52 Long term (current) use of systemic steroids; Z79.899 Other long term (current) drug therapy; Z88.0 Allergy status to penicillin; Z88.1 Allergy status to other antibiotic agents
CPT/HCPCS: 51798; 81001; 87077; 87086; 87186; 99283; A9270